=== PATIENT | female | born 1990 | race Caucasian/White ===

== ENCOUNTER 2022-01-29 09:07 | Outpatient (CLI) | payer BC, SELFPAY ==
--- NOTE | 2022-01-29 10:00 | CRLHL7_ITS ---
For Patients: As a result of the Century Cures Act, medical imaging exams and procedure reports are released immediately into your electronic medical record. You may view this report before your referring provider. If you have questions, please contact your health care provider. INDICATION: Evaluate anatomy. COMPARISON: 11.05.21 TECHNIQUE: Real time christopher scale imaging of the fetus was performed. FINDINGS: Sonographic imaging demonstrates a single living intrauterine gestation. Fetus demonstrates a regular cardiac rate of 148 beats per minute. Fetus has a variable position. The placenta lies anterior without evidence of placenta previa. Edge of the placenta is located 3.2 cm from the internal cervical os. Multiple incidental placental lakes are present. Amniotic fluid volume appears normal. Single deepest vertical pocket: 3.1 cm. The cervix is closed and measures 5.5 cm in length. The composite ultrasound gestational age is calculated at 20 weeks 3 days with an estimated sonographic due date of 06/15/2022. The estimated weight is 363 grams which lies at the 62nd %. The following biometric measurements were obtained: Biparietal diameter: 4.7 cm/20 weeks 1 day 42nd% Head circumference: 17.4 cm/19 weeks 6 days 26th% Abdominal circumference: 15.7 cm/20 weeks 6 days 63rd% Femur length: 3.4 cm/20 weeks 3 days 49th% The HC/AC ratio measures: 1.11 range (1.07-1.25) On anatomic survey, there is a normal appearance of the cerebral ventricles, cavum septi pellucidi, cisterna magna and cerebellum. The nose, lips, and facial profile appear normal. The cervical, thoracic and lumbar spine are well visualized and appear normal. There is a normal four-chamber heart view and the left and right ventricular outflow tracts appear normal. The diaphragm and stomach appear normal. The kidneys and bladder also appear normal. There is a normal three-vessel cord and cord insertion site. The four extremities appear normal. IMPRESSION: Normal OB ultrasound exam with concordance of clinical and sonographic dating. No intrinsic abnormalities noted on anatomic survey. Multiple incidental placental lakes are present. Dictated by Dejuan Jung MD @ 01/29/2022 11:40:39 AM (Electronically Signed)
== END 2022-01-29 09:08 | disposition home or self-care (01) ==
LOC: US 09:08
PROVIDERS: Visit Provider Obstetrics & Gynecology
DX: Z34.82 Encounter for supervision of other normal pregnancy, second trimester (principal); Z3A.20 20 weeks gestation of pregnancy
CPT/HCPCS: 76805

== ENCOUNTER 2022-03-24 10:21 | Outpatient (CLI) | payer BC, SELFPAY ==
--- OUTSIDE RECORDS SUMMARY | 2022-03-24 09:53 | XMS_ITS | Encounter Summary ---
:1990 Author Organization [facility] Address [address] [place] [address] Care Team Providers Name Role Phone Patricia Da Silva PA-C Primary Care Provider Reason for Visit Reason Comments Refill JMY-DU-YOPNIW 0.18/0.215/0.2 5 MG-25 MCG tablet [Pharmacy Med Name: Qrm-Re-Erdsug Oral Tablet 0. 18/0.215/0.25 MG-25 MCG] Encounter Details Date Type Department Care Team Description 03/02/2019 Refill [facility] Patricia Da Silva, Refill (BXE-EA-OPRNDC Medicine [facility] 0.18/0.215/0.25 MG-25 [address] MCG tablet [Pharmacy Med [place], [place] [address] Name: Rkd-Ww-Bccqzo Oral [id number] Tablet 0.18/0.215/0.25 [phone] MG-25 MCG ]) Social History Tobacco Use Types Packs/Day Years Used Date Smoking Tobacco: Former Cigarettes Quit : 07/09/2012 Smokeless Tobacco: Never Alcohol Use Standard Drinks/Week Comments Yes 2 (1 standard drink = 0.6 oz pure alcoho l) Sex Assigned at Date Recorded Not on file documented as of this encounter Nursing Notes Richa Enriquez 03/06/2019 11:53 AM CDT Appointment Letter PRINTED & Sent Kathya Montiel RN - 03/03/2019 8:46 AM CDT OFFICE APPOINTMENT NEEDED Please notify patient to schedule an appointment within 30 days. Requested Prescriptions Pending Prescriptions Disp Refills ??? QUT-NY-WBJRQU 0.18/0.215/0.25 MG-25 MCG tablet [Pharmacy Med Name: Cfj-Hu-Ipppku Oral Tablet 0.18/0.215/0.25 MG-25 MCG] 84 Tablet Sig: TAKE ONE TABLET BY MOUTH EVERY DAY Interface, Out Surescripts Prov Query - 03/02/2019 8:32 PM CDT CIU-PE-HTSCMC 0.18/0.215/0.25 MG-25 MCG tablet [Pharmacy Med Name: Pwe-Vc-Ikqvls Oral Tablet 0.18/0.215/0.25 MG-25 MCG] Medication started: 04/11/2016 Last ordered by PATRICIA DA SILVA R: 12/28/2017 (429 days ago) QTY: 84, Refills: 3, Sig: take 1 tab by mouth daily. (changed but equivalent) -> Refill x 3 months (courtesy refill. overdue for an office visit) -> Calculate quantity and refills manually. They could not be estimated due to missing or unreadable information. Last qualifying visit: 12/28/2017 (with PATRICIA DA SILVA) (A more recent visit (in Family Practice) was found) Next scheduled visit: None SBP: 160 mm Hg on 10/05/2018 DBP: 114 mm Hg on 10/05/2018 Powered by [employer], Reference: [id number], 03/02/2019 8:32:20 PM CDT, Pool: JUANA REFILL ([id number]) documented in this encounter Plan of Treatment Not on filedocumented as of this encounter Visit Diagnoses Diagnosis Encounter for surveillance of contracept hosea pills Surveillance of previously prescribed co ntraceptive pill documented in this encounter Care Teams Golf Course Architect Relationship Specialty Start Date End Date Patricia Da Silva PA-C PCP - General 10/13/15 [address] [place] [address] documented as of this encounter
--- OUTSIDE RECORDS SUMMARY | 2022-03-24 09:53 | XMS_ITS | Encounter Summary ---
:1990 Author Organization [facility] [employer] [facility] Address [address] [place] [address] Care Team Providers Name Role Phone Patricia Da Silva PA-C Primary Care Provider Reason for Visit Reason Comments Annual Exam Encounter Details Date Type Department Care Team Description 07/27/2019 Office Visit [facility] Patricia Da Silva, Annual physical exam (Primary Dx); Medicine PATSY FH: malignant neoplasm of thyroid; [address] [address]. [address] [facility] Encounter for surveillance of contracept hosea pills; [place], [place] Screening for diabetes mellitus; [id number] Encounter for screening for lipoid disor ders; [phone] History of alco hol abuse (Work) Social History Tobacco Use Types Packs/Day Years Used Date Smoking Tobacco: Former Cigarettes Quit : 07/09/2012 Smokeless Tobacco: Never Alcohol Use Standard Drinks/Week Comments Not Currently 2 (1 standard drink = 0.6 oz pure alcoho l) Sober since Apr 04, 2019 Alcohol Habits Answer Date Recorded How often do you have a drink containing Not asked alcohol? How many drinks containing alcohol do you Not asked have on a typical day when you are drinking? How often do you have six or more drinks on Not asked one occasion? Comment: Sober since Apr 04, 2019 07/27/2019 Sex Assigned at Date Recorded Not on file documented as of this encounter Last Filed Vital Signs Vital Sign Reading Time Taken Comments Blood Pressure 124/76 07/27/2019 11:44 AM LIGHTOUT EXAMINER Pulse 80 07/27/2019 11:44 AM LIGHTOUT EXAMINER Temperature - - Respiratory Rate - - Oxygen Saturation - - Inhaled Oxygen Concentration - - Weight 76.2 kg (168 lb 1.6 oz) 07/27/2019 11:44 AM LIGHTOUT EXAMINER Height - - Body Mass Index 29.78 10/05/2018 9:25 AM CDT documented in this encounter Patient Instructions Patient InstructionsPatricia Da Silva PA-C - 07/27/2019 11:40 AM CST Here is plan below: 1) We discussed that there are several lifestyle changes that can help improve overall mental and physical health including starting 2,000IU of Vitamin D3 daily and 2g fish oil daily. Also drinking 2-3liters of water per day and eating a healthy diet, focusing on higher proteins/healthy fats and lesscarbs, eat more lean meats, fruits, veggies, whole grains (over whites) and avoid fast foods and processed foods and artificial sweeteners. Eat more healthy fats also like avocado, eggs, nuts, olive/coconut oil, josias seeds. 2) Continue getting regular exercise, aiming for 30-60min of cardio/strength/yoga at least 4-6 timesper week. 3) Start the new control and let me know how it goes. I'll notify you of your labs, call with any questions or concerns. Thanks, Patricia Da Silva PAC. TOUT EXAMINER documented in this encounter Progress Notes Patricia Da Silva PA-C - 07/27/2019 11:40 AM CST Preventive Exam SUBJECTIVE: 29 y.o. y/o patient presents for a routine preventive physical exam. Additional Concerns: She is doing so much better this year, she quit drinking Apr 042018. Shewas drinking vodka all day at its worst. She is doing great now and went back to school on line for human resources and doing AA twice per week. Diet: Trying to eat cesspool cleaner and healthier now. Doing more whole 30 type stuff with her mom and she is living with her now. More chicken and proteins and veggies. Rare soda. Exercise: Just started at [employer] again, fast walk on the treadmill some weights and she is going to start some classes, is going 4-5x per week. Supplements: Multivitamin. Supervisor Wire Rope Fabrication History: : No obstetric history on file. LMP: Patient's last menstrual period was 07/14/2019. Pap hx: Does patient have history of abnormal pap smear? no. Mammogram: N/A. Prev Med: Colonoscopy: N/A. Dexa: N/A. Past Medical, Family, Surgical and Social History, Drug allergies and Medications have been reviewedand updated in [facility] today. Review of Systems: The remainder of complete ROS is negative except as noted above. OBJECTIVE: BP 124/76 (BP Location: Right Arm, BP Cuff Size: Regular) Pulse 80 Wt 168 lb 1.6 oz (76.2 kg) LMP 07/14/2019 BMI 29.78 kg/m?? General: Patient alert, in NAD. HEENT: PERRLA. EOMI. Bilateral TM's, external canals normal. Nose: normal mucosa, turbinates, without lesions. Oropharynx normal, normal teeth, gums, tongue, moist mucosa. Skin: Warm, dry, without lesions or rashes noted. Neck: Supple, without thyromegaly, masses or lymphadenopathy. CV: RRR without murmurs, rubs or gallops. Resp: Clear to auscultation b/l without rhonchi, wheezes or rales. Abdomen: Soft, non-tender, without hepatosplenomegaly, masses, or hernias, b/s x 4. Breasts: Non tender b/l, without masses, nipple discharge, erythema, or skin changes. B/L nipple piercings. Pelvic: N/E. Lymphatic: No neck, supraclavicular or axillary lymphadenopathy. Upper extremities: FROM without deformities. Lower extremities: FROM without edema, varicosities, or deformity. DP/PT pulses 2/4+ b/l. MS: Normal cervical, thoracic and lumbar spine without deformities, non-tender. Neuro: Normal gait, patellar reflexes 2/4+ b/l, biceps reflexes 2/4+ b/l. Psychiatric: Alert & oriented with normal affect and insight, does not appear depressed or anxious. ASSESSMENT: 1. Annual physical exam 2. FH: malignant neoplasm of thyroid 3. Encounter for surveillance of contraceptive pills 4. Screening for diabetes mellitus 5. Encounter for screening for lipoid disorders 6. History of alcohol abuse PLAN: Binta was seen today for annual exam. Diagnoses and all orders for this visit: Annual physical exam FH: malignant neoplasm of thyroid Encounter for surveillance of contraceptive pills - Norethin Randolph-Eth Estrad-FE () 1-20 MG-MCG tablet; Take 1 Tablet by mouth daily. Screening for diabetes mellitus - Glucose; Future Encounter for screening for lipoid disorders - Lipid Panel and Direct LDL(If Needed); Future History of alcohol abuse Here is plan below: 1) We discussed that there are several lifestyle changes that can help improve overall mental and physical health including starting 2,000IU of Vitamin D3 daily and 2g fish oil daily. Also drinking 2-3liters of water per day and eating a healthy diet, focusing on higher proteins/healthy fats and lesscarbs, eat more lean meats, fruits, veggies, whole grains (over whites) and avoid fast foods and processed foods and artificial sweeteners. Eat more healthy fats also like avocado, eggs, nuts, olive/coconut oil, josias seeds. 2) Continue getting regular exercise, aiming for 30-60min of cardio/strength/yoga at least 4-6 timesper week. 3) Start the new control and let me know how it goes. I'll notify you of your labs, call with any questions or concerns. Thanks, FERNANDO Villalta. TOUT EXAMINER documented in this encounter Plan of Treatment Not on filedocumented as of this encounter Results Glucose (07/27/2019 12:28 PM LIGHTOUT EXAMINER) P athologist Signature Glucose 98 70 - 100 07/27/2019 [place] mg/dL 4:00 PM LIGHTOUT EXAMINER [facility]ORY Comment: The given reference range is fo r the fasting state. Non-fasting reference range for glucose is 70 - 180 mg/dL. Hours Fasting 2 07/27/2019 4:00 PM LIGHTOUT EXAMINER [facility] Specimen Anatomical Collection Method / Collection Time Recei gretchen Time (Source) Location / Volume Laterality Blood Venipuncture / 07/27/2019 12:28 0 Unknown PM LIGHTOUT EXAMINER 12:28 PM LIGHTOUT EXAMINER Patricia Da Silva PA-C LAB_1 Performing Organization Address City/State/ZIP Code Phon e Number [facility] [address] [place] [address] [facility] [address] [place] [address], [place] (ABNORMAL) Lipid Panel and Direct LDL(If Needed) (07/27/2019 12:28 PM LIGHTOUT EXAMINER) [facility] Method Time Signature Cholesterol 149 0 - 199 07/27/2019 [place] mg/dL 4:00 PM LIGHTOUT EXAMINER [facility] Triglyceride 125 <=149 07/27/2019 [place] mg/dL 4:00 PM LIGHTOUT EXAMINER [facility] HDL Cholesterol 33 (L) >=40 mg/dL 07/27/2019 [place] 4:00 PM L[facility]OUT EXAMINER [facility] LDL, Calculated 91 <130 mg/dL 07/27/2019 [place] 4:00 PM LIGHTOUT EXAMINER [facility] Non HDL Chol, 116 mg/dL 07/27/2019 [place] Calculated 4:00 PM LIGHTOUT EXAMINER [facility] Cholesterol/HDL 4.5 07/27/2019 [place] Ratio 4:00 PM LIGHTOUT EXAMINER [facility] Hours Fasting 2 07/27/2019 [facility] 4:00 PM LIGHTOUT EXAMINER Specimen Anatomical Collection Method / Collection Time Recei gretchen Time (Source) Location / Volume Laterality Blood Venipuncture / 07/27/2019 12:28 0 Unknown PM LIGHTOUT EXAMINER 12:28 PM LIGHTOUT EXAMINER Patricia Da Silva PA-C LAB_1 Performing Organization Address [facility] Code Phon e Number [facility] [address] [place] [address] [facility] [address] [place] [address], [place] documented in this encounter Visit Diagnoses Diagnosis Annual physical exam - Primary Routine general medical examination at a health care facility FH: malignant neoplasm of thyroid Family history of other specified malign ant neoplasm Encounter for surveillance of contracept hosea pills Surveillance of previously prescribed co ntraceptive pill Screening for diabetes mellitus Encounter for screening for lipoid disor ders Screening for lipoid disorders History of alcohol abuse Nondependent alcohol abuse, in remission documented in this encounter Care Teams Disassembler Product Relationship Specialty Start Date End Date Patricia Da Silva PA-C PCP - General 10/13/15 [address] [place] [address] documented as of this encounter
--- OUTSIDE RECORDS SUMMARY | 2022-03-24 09:53 | XMS_ITS | Encounter Summary ---
:1990 Author Organization [facility] Address [address] [place] [address] Care Team Providers Name Role Phone Patricia Da Silva PA-C Primary Care Provider Reason for Visit Reason Comments Medication Change Encounter Details Date Type Department Care Team Description 01/05/2021 Nurse Triage [place] [address] Family Patricia Da Silva M edication Change Medicine [facility] [address] [facility] [address] [address] [place], [place] [address] [phone] Social History Tobacco Use Types Packs/Day Years [...] documented as of this encounter Nursing Notes Luz Maria Garcia RN - 01/05/2021 2:15 PM CDT Spoke with pt. States that she has not been getting her period on current control. Is dating again, and is wanting to know that she is getting a period each month. Has not had a period in about ayear. Has only had some spotting. Has been on this control for the last year and a half. Denies any abdominal pain or severe bleeding. Problem list reviewed as related to this call. Reason for Disposition ??? Menstrual period, missed or late Protocols used: CONTRACEPTION - CONTROL PILLS - [id number] Marco Rodgers - 01/05/2021 12:42 PM CDT Medications - Med Change / Question Is this a medication change or a general question? Med Change What is the name and dose of the current medication? BLISOVI FE 07/30 1-20 MG-MCG tablet Do you know what medication/dosage you would like to change to? (If yes, what is the medication name/dosage?) No Why do you need to change medication/dosage? Pt is not getting a period on this BC and pt would like to have a period How often do you take it? As directed Who prescribed it? Patricia Da Silva PA-C Additional comments (related to the above concern): For this medication, patient would like it filled at the pharmacy listed in Meds & Orders. (Verify the pharmacy patient would like to use for this request is highlighted in blue in Pharmacy Selection under Meds & Orders) Is it okay to leave a detailed message on your voicemail? Yes (Advise caller that the PN call back number will end with [phone] or unknown) Please route to: Triage Pool documented in this encounter Plan of Treatment Not on filedocumented as of this encounter Visit Diagnoses Not on filedocumented in this encounter Care Teams Engineering Supervisor Relationship Specialty Start Date End Date Patricia Da Silva PA-C PCP - General 10/13/15 [address] [place] [address] documented as of this encounter
--- OUTSIDE RECORDS SUMMARY | 2022-03-24 09:53 | XMS_ITS | Encounter Summary ---
:1990 Author Organization [facility] Address [address] [place] [address] Care Team Providers Name Role Phone Patricia Da Silva PA-C Primary Care Provider Encounter Details Date Type Department Care Team Description 07/27/2019 Lab Visit [facility] Encounter for screening for lipoid disorders; [id number] [address] [place] [address] Social History Tobacco Use Types Packs/Day Years [...] on file documented as of this encounter Plan of Treatment Not on filedocumented as of this encounter Procedures Procedure Name Priority Date/Time Associated Diagnosis Comme nts LIPID PANEL AND Routine 07/27/2019 12:28 PM Encounter for Resu lts for this DIRECT LDL(IF SMASHER screening for lipoid proced ure are in NEEDED) disorders the results section. GLUCOSE Routine 07/27/2019 12:28 PM Screening for Results for this SMASHER diabetes mellitus procedure are in the results section. documented in this encounter Results Glucose (07/27/2019 12:28 PM SMASHER) P athologist Signature Glucose 98 70 - 100 07/27/2019 [place] mg/dL 4:00 PM [facility] Comment: The given reference range is fo r the fasting state. Non-fasting reference range for glucose is 70 - 180 mg/dL. Hours Fasting 2 07/27/2019 4:00 PM SMASHER [facility] Specimen Anatomical Collection Method / Collection Time Recei gretchen Time (Source) Location / Volume Laterality Blood Venipuncture / 07/27/2019 12:28 0 Unknown PM SMASHER 12:28 PM SMASHER Patricia Da Silva PA-C LAB_1 Performing Organization Address City/[facility] Phon e Number [facility] [address] [place] [address] [place] [facility] [facility] [address] [place] [address], [phone] [facility] (ABNORMAL) Lipid Panel and Direct LDL(If Needed) (07/27/2019 12:28 PM SMASHER) Patholo gist Method Time Signature Cholesterol 149 0 - 199 07/27/2019 [place] mg/dL 4:00 PM [facility] Triglyceride 125 <=149 07/27/2019 [place] mg/dL 4:00 PM [facility] HDL Cholesterol 33 (L) >=40 mg/dL 07/27/2019 [place] 4:00 PM [facility] LDL, Calculated 91 <130 mg/dL 07/27/2019 [place] 4:00 PM [facility] Non HDL Chol, 116 mg/dL 07/27/2019 [place] Calculated 4:00 PM [facility] Cholesterol/HDL 4.5 07/27/2019 [place] Ratio 4:00 PM [facility] Hours Fasting 2 07/27/2019 [facility] 4:00 PM SMASHER Specimen Anatomical Collection Method / Collection Time Recei gretchen Time (Source) Location / Volume Laterality Blood Venipuncture / 07/27/2019 12:28 0 Unknown PM SMASHER 12:28 PM SMASHER Patricia Da Silva PA-C LAB_1 Performing Organization Address City/[facility]/ZIP [facility] Phon e Number [facility] [address] [place] [address] [facility] [address] [place] [address], [phone] [facility] documented in this encounter Visit Diagnoses Diagnosis Encounter for screening for lipoid disor ders Screening for lipoid disorders Screening for diabetes mellitus documented in this encounter Care Teams Plant Guide Relationship Specialty Start Date End Date Patricia Da Silva PA-C PCP - General 10/13/15 [address] [place] [address] documented as of this encounter
--- OUTSIDE RECORDS SUMMARY | 2022-03-24 09:53 | XMS_ITS | Encounter Summary ---
:1990 Author Organization [facility] Address [address] [place] [address] Care Team Providers Name Role Phone Patricia Da Silva PA-C Primary Care Provider Reason for Visit Reason Comments DIZZINESS Encounter Details Date Type Department Care Team Description 06/10/2021 Telephone [place] [address] Family Tyra Da Silva PA-C DIZZINESS Medicine [address] [facility] [address] [place] [address] [place] [address] [phone] Social History Tobacco Use Types Packs/Day Years [...] documented as of this encounter Nursing Notes Risa Montiel - 06/10/2021 2:52 PM CST Red Flag Symptoms Describe your symptoms (if pain, include location): dizziness Caller declined to follow Red Flag Guidelines. Additional comments (related to the above concern): For emergent symptoms: Please route and transfer to: Triage Pool (high priority) For urgent and routine symptoms: DO NOT enter a pool number. Please sign/close phone encounter KALEIDOSCOPE ANALYST documented in this encounter Plan of Treatment Not on filedocumented as of this encounter Visit Diagnoses Not on filedocumented in this encounter Care Teams Covered Buckle Assembler Relationship Specialty Start Date End Date Patricia Da Silva PA-C PCP - General 10/13/15 [address] [place] [address] documented as of this encounter
--- OUTSIDE RECORDS SUMMARY | 2022-03-24 09:53 | XMS_ITS | Encounter Summary ---
:1990 Author Organization [employer] Address [address] [place] [address] Care Team Providers Name Role Phone Patricia Da Silva PA-C Primary Care Provider Reason for Visit Reason Onset Date Comments FOLLOW-UP, CONTROL, NOS Video Visit 01/13/2021 Encounter Details Date Type Department Care Team Description 01/13/2021 Telemedicine [place] [address] Patricia Da Silva Encounte r for surveillance of contraceptive pills (Primary Dx); Family Medicine PATSY History of alcohol abuse [address] [place] [address] [phone] Social History Tobacco Use Types Packs/Day Years [...] Sign Reading Time Taken Comments Blood Pressure - - Pulse - - Temperature 37 ??C (98.6 ??F) 01/13/2021 8:02 AM CDT Respiratory Rate - - Oxygen Saturation - - Inhaled Oxygen Concentration - - Weight 77.1 kg (170 lb) 01/13/2021 8:02 AM CDT Height 157.5 cm (5' 2) 01/13/2021 8:02 AM CDT Body Mass Index 31.09 01/13/2021 8:02 AM CDT documented in this encounter Progress Notes Patricia Da Silva PA-C - 01/13/2021 8:20 AM CDT Subjective: Today's visit with Binta was conducted as a scheduled video visit. Pt scheduled a video visit to discuss her OCP. She still doesn't get a period on period week and/or just a little spotting and it makes her nervous now because she is sexually active again. Wondering if there is a pill where she will get her period. Discussed as long as she is taking the pill daily itis really fine and she does like that she doesn't have to pay for Tampons so she will just continue this pill for now. I did discuss Nexplanon and IUD also so she doesn't have to remember a pill but she has been fine with this pill and doesn't forget at all so will stick with it. She is still sober and doing well. 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 She may continue on with more schooling. 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 She is overdue for annual exam/pap so I got her scheduled for that also. Objective: Temp 98.6 ??F (37 ??C) Ht 5' 2 (1.575 m) Wt 170 lb (77.1 kg) BMI 31.09 kg/m?? Pleasant, NAD, barbara affect. Assessment/Plan: Encounter for surveillance of contraceptive pills - Norethin Randolph-Eth Estrad-FE (BLISOVI FE 07/30) 1-20 MG-MCG tablet; Take 1 Tablet by mouth daily. History of alcohol abuse Pt will stick with this OCP and we'll see her for annual exam and pap in a couple weeks. She will call with any questions or concerns in the meantime. [facility]K Clinician located at home. Patient located at home Billing based on: Complexity Patricia Da Silva PA-C documented in this encounter Plan of Treatment Not on filedocumented as of this encounter Visit Diagnoses Diagnosis Encounter for surveillance of contracept hosea pills - Primary Surveillance of previously prescribed co ntraceptive pill History of alcohol abuse Nondependent alcohol abuse, in remission documented in this encounter Care Teams Ambulance Dispatcher Relationship Specialty Start Date End Date Patricia Da Silva PA-C PCP - General 10/13/15 [address] [place] [address] documented as of this encounter
--- OUTSIDE RECORDS SUMMARY | 2022-03-24 09:53 | XMS_ITS | Encounter Summary ---
:1990 [facility] Address [address], [place] [address] Care Team Providers Name Role Phone Patricia Da Silva PA-C Primary Care Provider Reason for Visit Reason Comments ANIMAL BITE--CAT--ED Encounter Details Date Type Department Care Team Description 11/07/2018 Nurse Triage [facility] Patricia Da Silva, ANIMAL BITE--CAT--ED Medicine [place] [address] [address] [place] [address] [phone] Social History Tobacco Use Types Packs/Day Years Used Date Smoking Tobacco: Former Cigarettes Quit : 07/09/2012 Smokeless Tobacco: Never Alcohol Use Standard Drinks/Week Comments Yes 2 (1 standard drink = 0.6 oz pure alcoho l) Sex Assigned at Date Recorded Not on file documented as of this encounter Nursing Notes Vilma Marshall RN - 11/07/2018 11:43 AM CDT Reason for Disposition ??? Any break in skin (e.g., cut, puncture, or scratch) and dog, cat, or ferret at risk for RABIES (e.g., sick, stray, unprovoked bite, developing country) Protocols used: ANIMAL AWTN-ALDIK-CH Patient notes a stray cat scratched her right palm on 11/04. States the scratch was deep- not superficial. Healing well now, no signs of infection. No fever, pus, red streaks. Cat was a stray - [place] with exposure to other wild animals such as raccoons.Home care and problem list reviewed as pertaining to the call. Recommended UC for evaluation of injury. Agrees with plan. documented in this encounter Plan of Treatment Not on filedocumented as of this encounter Visit Diagnoses Not on filedocumented in this encounter Care Teams Survey Crew Chief Relationship Specialty Start Date End Date Patricia Da Silva PA-C PCP - General 10/13/15 [address] [place] [address] documented as of this encounter
--- OUTSIDE RECORDS SUMMARY | 2022-03-24 09:53 | XMS_ITS | Encounter Summary ---
:1990 Author Organization [facility] Address [address] [place] [address] Care Team Providers Name Role Phone Patricia Da Silva PA-C Primary Care Provider Reason for Visit Reason Comments Refill BLISOVI FE 1/20 1-20 MG-MCG tablet [Pharmacy Med Name: Blisovi FE 1/20 Oral Tablet 1-20 MG-MCG] Encounter Details Date Type Department Care Team Description 10/09/2020 Refill [place] [address] Family Patricia Da Silva R efill (BLISOVI FE 1/20 Medicine PA-C 1-20 MG-MCG tablet [address] [facility] [address] [facility] [Pharmacy Med Name: [place], [place] [address] Blisovi FE 1/20 Oral [address] Tablet 1-20 MG-MCG]) [phone] Social History Tobacco Use Types Packs/Day Years [...] documented as of this encounter Nursing Notes Neftaly Chan, RN - 10/09/2020 11:33 AM CDT Renewed medication per medication refill protocol. Requested Prescriptions Pending Prescriptions Disp Refills BLISOVI FE 1/20 1-20 MG-MCG tablet [Pharmacy Med Name: Blisovi FE 1/20 Oral Tablet 1-20 MG-MCG] 90 Tablet 0 Sig: TAKE ONE TABLET BY MOUTH DAILY Neftaly Chan RN - 10/09/2020 11:33 AM CDT 90 day supply given per Emergency Refill Standing Order. Neftaly Chan RN 10/09/2020, 11:33 AM Interface, Out Surescripts Prov Query - 10/09/2020 11:12 AM CDT BLISOVI FE 1/20 1-20 MG-MCG tablet [Pharmacy Med Name: Blisovi FE 1/20 Oral Tablet 1-20 MG-MCG] Medication started: 07/27/2019 Last ordered by PATRICIA DA SILVA R: 07/19/2020 (82 days ago) QTY: 90, Refills: 0, Sig: take 1 tablet bymouth daily. (changed but equivalent) -> An office visit is overdue (performed 15 months ago, required every 12 months). Last qualifying visit: 07/27/2019 (with PATRICIA DA SILVA) Next scheduled visit: None Powered by [facility], Reference: [id number], 10/09/2020 11:12:16 AM CDT, Pool: JUANA REFILL ([id number]) documented in this encounter Plan of Treatment Not on filedocumented as of this encounter Visit Diagnoses Diagnosis Encounter for surveillance of contracept hosea pills Surveillance of previously prescribed co ntraceptive pill documented in this encounter Care Teams Phlebotomy Manager Relationship Specialty Start Date End Date Patricia Da Silva PA-C PCP - General 10/13/15 [address] [place] [address] documented as of this encounter
--- OUTSIDE RECORDS SUMMARY | 2022-03-24 09:53 | XMS_ITS | Encounter Summary ---
:1990 Author Organization [facility] Address [address] [place] [address] Care Team Providers Name Role Phone Patricia Da Silva PA-C Primary Care Provider Encounter Details Date Type Department Care Team Description 06/02/2020 Immunization [place] [address] Flu Need for prophylactic Clinic vaccination and [address] [place] [address] influenza [phone] Social History Tobacco Use Types Packs/Day Years [...] as of this encounter Visit Diagnoses Diagnosis Need for prophylactic vaccination and in oculation against influenza documented in this encounter Care Teams Monotype Machinist Relationship Specialty Start Date End Date Patricia Da Silva PA-C PCP - General 10/13/[address] [place] [address] documented as of this encounter
--- OUTSIDE RECORDS SUMMARY | 2022-03-24 09:53 | XMS_ITS | Encounter Summary ---
:1990 Author [facility] Address [address] [place] [address] Care Team Providers Name Role Phone Patricia Da Silva PA-C Primary Care Provider Reason for Visit Reason Comments Refill Norethin Randolph-Eth Estrad-FE ( BLISOVI FE 07/30) 1-20 MG-MCG tablet Encounter Details Date Type Department Care Team Description 01/05/2021 Refill [place] [address] Family Patricia Da Silva R efill (Norethin Randolph-Eth Medicine PAT[place] Estrad-FE ([place] FE [address] 07/30) 1-20 MG-MCG [place], [place] [address] tablet) [id number] [phone] Social History Tobacco Use Types Packs/Day Years [...] documented as of this encounter Nursing Notes Breanna Winchester LPN - 01/06/2021 12:04 PM CDT Called and left a message that one month was given but appt needs to be kept for future refills. Lennox Mobley MD - 01/06/2021 10:20 AM CDT One month refill given to last until upcoming appt. Mita Dickerson, RN - 01/05/2021 4:51 PM CDT Further Assistance Needed on Refill from Clinician RN reviewed. Patient overdue for Qualifying visit. -> An office visit is overdue (performed 18 months ago, required every 12 months). Last qualifying visit: 07/27/2019 Next scheduled visit: 01/13/2021 Review pended order for accuracy. Sign if appropriate. Document if visit is needed for further refills. Route to care team to notify patient if needed. Requested Prescriptions Pending Prescriptions Disp Refills Norethin Randolph-Eth Estrad-FE (BLISOVI FE 07/30) 1-20 MG-MCG tablet 28 Tablet 0 Sig: Take 1 Tablet by mouth daily. Alexandria Cazares - 01/05/2021 4:40 PM CDT Medications - Refill Request (able to re-order) Name of prescribing clinician: Patricia Da Silva PA-C Additional comments (related to the above concern): Pt is out of medication and needs enough until appt on 01/13/21 For this refill, patient would like it filled at the pharmacy listed in Meds & Orders. (Verify the pharmacy patient would like to use for this request is highlighted in blue in Pharmacy Selection under Meds & Orders) If there are questions regarding your request, is it okay to leave a detailed message on your voicemail? Yes (Advise caller that the PN call back number will end with [phone] or unknown) (Advise caller of turn around time is 2 business days for standard refills and 2 to 5 business days for controlled refills) Please route to: Refill Pool (P [id number]) [facility] [place] Patients ONLY (P [id number]) [facility] Refill Pool (P [id number]) Interface, Out Surescripts Prov Query - 01/05/2021 12:44 PM CDT Norethin Randolph-Eth Estrad-FE (BLISOVI FE 07/30) 1-20 MG-MCG tablet Medication started: 07/27/2019 Last ordered by PATRICIA DA SILVA R: 10/09/2020 (88 days ago) QTY: 90, Refills: 0, Sig: take one tablet by mouth daily (changed but equivalent) -> An office visit is overdue (performed 18 months ago, required every 12 months). Last qualifying visit: 07/27/2019 (with PATRICIA DA SILVA) Next scheduled visit: None Powered by [employer], Reference: [id number], 01/05/2021 12:44:41 PM CDT, Pool: PN REFILL WIZARD ADMIN ([id number]) Marco Rodgers - 01/05/2021 12:43 PM CDT Medications - Refill Request (able to re-order) Name of prescribing clinician: Patricia Da Silva PA-C Additional comments (related to the above concern): For this refill, patient would like it filled at the pharmacy listed in Meds & Orders. (Verify the pharmacy patient would like to use for this request is highlighted in blue in Pharmacy Selection under Meds & Orders) If there are questions regarding your request, is it okay to leave a detailed message on your voicemail? Yes (Advise caller that the PN call back number will end with [phone] or unknown) (Advise caller of turn around time is 2 business days for standard refills and 2 to 5 business days for controlled refills) Please route to: Refill Pool (P [id number]) [facility] [place] Patients ONLY (P [id number]) [facility] Refill Pool (P [id number]) documented in this encounter Plan of Treatment Not on filedocumented as of this encounter Visit Diagnoses Diagnosis Encounter for surveillance of contracept hosea pills Surveillance of previously prescribed co ntraceptive pill documented in this encounter Care Teams Rn Icu Relationship Specialty Start Date End Date Patricia Da Silva PA-C PCP - General 10/13/15 [address] [place] [address] documented as of this encounter
--- OUTSIDE RECORDS SUMMARY | 2022-03-24 09:53 | XMS_ITS | Encounter Summary ---
:1990 Author Organization [employer] Address [address] [place] [address] Care Team Providers Name Role Phone Patricia Da Silva PA-C Primary Care Provider Reason for Referral Therapies (Routine) - New Request Specialty Diagnoses / Procedures Referred By Contact Refer red To Contact Diagnoses Vertigo Ministerio Hughes PA-C [address] [place] [address] Referral ID Status Reason Start Date Expiration Date Visits V isits Requested Authorized [id number] New Request 06/17/2021 06/17/2022 1 1 Scheduling Instructions Your provider has recommended an appoint ment with [facility]. You may call [phone] to schedule your a ppointment. We suggest you call your health insurance company about your coverage an d benefits for this appointment. OROLOGIST LIAISON Reason for Visit Reason Comments DIZZINESS started last tuesday worse for the week better the last 2 days mostly when bends over and stands up or getting up in am Encounter Details Date Type Department Care Team Description 06/17/2021 Office Visit [place] [address] Family Ministerio Hughes V ertigo (Primary Dx) Medicine PAT[place] [address] [facility] [address] [place] [address] [phone] Social History Tobacco Use Types Packs/Day Years [...] Sign Reading Time Taken Comments Blood Pressure 132/87 06/17/2021 1:50 PM METEOROLOGIST LIAISON Pulse 102 06/17/2021 1:50 PM METEOROLOGIST LIAISON Temperature - - Respiratory Rate 16 06/17/2021 1:44 PM METEOROLOGIST LIAISON Oxygen Saturation - - Inhaled Oxygen Concentration - - Weight 63 kg (139 lb) 06/17/2021 1:44 PM METEOROLOGIST LIAISON Height 157.5 cm (5' 2) 06/17/2021 1:44 PM METEOROLOGIST LIAISON Body Mass Index 25.42 06/17/2021 1:44 PM METEOROLOGIST LIAISON documented in this encounter Patient Instructions Patient InstructionsMinisterio Hughes PA-C - 06/17/2021 1:40 PM CST Plan: 1). Meclizine 25mg 3x daily as needed for ongoing dizziness. 2). Avoid sudden movements or positional changes. 3). Referral to physical therapy for vestibular evaluation/rehab. 4). Close follow up with acute worsening of symptoms, weakness, severe headaches, or any other neurological symptoms. 5). May consider other work-up/imaging (ie: MRI) if not improving or getting worse. OROLOGIST LIAISON documented in this encounter Progress Notes Ministerio Hughes PA-C - 06/17/2021 1:40 PM CST Chief Complaint Patient presents with ??? DIZZINESS started last tuesday worse for the week better the last 2 days mostly when bends over and stands up or getting up in am History of present illness: Binta Mckeon is a 31 y.o. female who presents with acute onset of dizziness over past 1.5 weeks. Was fairly bad for about a week or so and a little better over past 2 days. Usually worse when bending over and then getting up too fast, or with certain rapid positional changes. Will usually improveif she sits still. Feels like room spinning when it happens. No significant nausea/vomiting. No other neurologic symptoms. Has had some mild headaches off and on over past month or so but states she stopped OCP and decreased caffeine as they are trying to get . No congestion, ear pain, hearingissues or URI/illness type symptoms. Has not had a history of vertigo in the past. No other acute issues or concerns. Has not taken anything for symptoms. Review of Systems: As stated in HPI otherwise negative. Past Medical History: Reviewed and updated in medical record at visit Past Surgical History: Reviewed and updated in medical record at visit Family History: Reviewed and updated in medical record at visit Medications: Reviewed and reconciled in medical record at visit. Allergies: Reviewed and updated in medical record at visit. Physical Exam: Vitals: 06/17/21 1350 BP: 132/87 Pulse: (!) 102 Resp: GEN: Alert, oriented, well nourished/hydrated in NAD EYES: PEERL, EOMI. Has a couple beats of horizontal nystagmus bilaterally ENT: Ears with clear canals, TMs normal. Nose without congestion or sinus tenderness. Throat with moist mucus membranes, no erythema or exudates. NECK: Supple, trachea midline, no LAD CHEST: Normal effort, CTA. HEART: RRR, No audible murmur, rub or gallop. ABD: Soft, non-tender. No rebound or guarding. SKIN: Warm and dry without rash M/S: No joint swelling or redness. NEURO: CN 2-12 intact, Normal strength and sensation throughout. Normal finger/nose touching. (-) Romberg. No pronator drift. Otherwise non-focal exam PSYCH: Alert and oriented. Normal affect. Orthostatic Vitals: Lying BP: 135/71, Pulse: 88 Standing BP: 132/87, Pulse: 102 Diagnosis: Encounter Diagnosis Name Primary? Vertigo Yes Plan: 1). Meclizine 25mg 3x daily as needed for ongoing dizziness. 2). Avoid sudden movements or positional changes. 3). Referral to physical therapy for vestibular evaluation/rehab. 4). Close follow up with acute worsening of symptoms, weakness, severe headaches, or any other neurological symptoms. 5). May consider other work-up/imaging (ie: MRI) if not improving or getting worse. OROLOGIST LIAISON documented in this encounter Plan of Treatment Scheduled Referrals Name Type Priority Associated Diagnoses Order S [facility] Physical Therapy Referral Routine Vertigo Ordered: documented as of this encounter Visit Diagnoses Diagnosis Vertigo - Primary Dizziness and giddiness documented in this encounter Care Teams Director Of Pediatric Rehabilitation Relationship Specialty Start Date End Date Patricia Da Silva PA-C PCP - General 10/13/15 [address] [place] [address] documented as of this encounter
--- OUTSIDE RECORDS SUMMARY | 2022-03-24 09:53 | XMS_ITS | Encounter Summary ---
:1990 Author Organization [facility] Address [address] [place] [address] Care Team Providers Name Role Phone Patricia Da Silva PA-C Primary Care Provider Reason for Visit Reason Onset Date Comments Refill 07/19/2020 Norethin Randolph-Eth Est rad-FE () 1-20 MG-MCG tablet Encounter Details Date Type Department Care Team Description 07/19/2020 Refill [place] [address] Family Patricia Da Silva R efill (Norethin Randolph-Eth Medicine PATSY Estrad-FE () [address] 1-20 MG-MCG tablet) [place], [place] [address] [phone] Social History Tobacco Use Types Packs/Day Years [...] as of this encounter Nursing Notes Neftaly Chan RN - 07/19/2020 11:46 AM CST Renewed medication per medication refill protocol. Requested Prescriptions Pending Prescriptions Disp Refills Norethin Randolph-Eth Estrad-FE () 1-20 MG-MCG tablet 90 Tablet 0 Sig: Take 1 Tablet by mouth daily. ING INSTRUCTOR Neftaly Chan RN - 07/19/2020 11:46 AM CST 90 day supply given per Emergency Refill Standing Order. Neftaly Chan RN 07/19/2020, 11:46 AM ING INSTRUCTOR Interface, Out Surescripts Prov Query - 07/19/2020 11:46 AM CST Norethin Randolph-Eth Estrad-FE () 1-20 MG-MCG tablet Medication started: 07/27/2019 Last ordered by PATRICIA DA SILVA R: 07/27/2019 (358 days ago) QTY: 84, Refills: 3, Sig: take 1 tablet by mouth daily. (unchanged) -> Refill x 3 months (until due for an office visit) Last qualifying visit: 07/27/2019 (with PATRICIA DA SILVA) Next scheduled visit: None Powered by [facility], Reference: [id number], 07/19/2020 11:46:10 AM Yan [place]: JUANA REFILL ([id number]) ING INSTRUCTOR Isidra Avendaño MA - 07/19/2020 11:45 AM CST [place] requested for pending Rx(s). Patient is out of medication. Please send new Rx(s) if appropriate, thank you. ING INSTRUCTOR documented in this encounter Plan of Treatment Not on filedocumented as of this encounter Visit Diagnoses Diagnosis Encounter for surveillance of contracept hosea pills Surveillance of previously prescribed co ntraceptive pill documented in this encounter Care Teams Industrial Hygiene Engineer Relationship Specialty Start Date End Date Patricia Da Silva PA-C PCP - General 10/13/15 [address] [place] [address] documented as of this encounter
--- OUTSIDE RECORDS SUMMARY | 2022-03-24 09:53 | XMS_ITS | Encounter Summary ---
:1990 Author Organization [facility] Address [address] [place] [address] Care Team Providers Name Role Phone Patricia Da Silva PA-C Primary Care Provider Reason for Visit Reason Comments Refill BLISOVI FE 1/20 1-20 MG-MCG tablet [Pharmacy Med Name: Blisovi FE 1/20 Oral Tablet 1-20 MG-MCG] Encounter Details Date Type Department Care Team Description 01/05/2021 Refill [place] [address] Family Patricia Da Silva R efill (BLISOVI FE 1/20 Medicine PA-C 1-20 MG-MCG tablet [address] [facility] [address] [facility] [Pharmacy Med Name: [place], [place] [address] Blisovi FE 1/20 [place] [address] Tablet 1-20 MG-MCG]) [phone] Social History Tobacco Use Types Packs/Day Years [...] documented as of this encounter Nursing Notes Interface, Out Surescripts Prov Query - 01/05/2021 4:23 PM CDT MATILDEISOOCHOA FE 07/30 1-20 MG-MCG tablet [Pharmacy Med Name: Blisovi FE 1/20 Oral Tablet 1-20 MG-MCG] Medication started: 07/27/2019 Last ordered by PATRICIA DA SILVA R: 10/09/2020 (88 days ago) QTY: 90, Refills: 0, Sig: take one tablet by mouth daily (unchanged) -> A duplicate request was processed on 01/05/2021. -> An office visit is overdue (performed 18 months ago, required every 12 months). Last qualifying visit: 07/27/2019 (with PATRICIA DA SILVA) Next scheduled visit: 01/13/2021 (with PATRICIA DA SILVA) Powered by [employer], Reference: [id number], 01/05/2021 4:23:07 PM CDT, Pool:JUANA REFILL ([id number]) documented in this encounter Plan of Treatment Not on filedocumented as of this encounter Visit Diagnoses Diagnosis Encounter for surveillance of contracept hosea pills Surveillance of previously prescribed co ntraceptive pill documented in this encounter Care Teams Educational Programming Director Relationship Specialty Start Date End Date Patricia Da Silva PA-C PCP - General 10/13/15 [address] [place] [address] documented as of this encounter
--- OUTSIDE RECORDS SUMMARY | 2022-03-24 09:53 | XMS_ITS | Encounter Summary ---
:1990 Author Organization [facility] Address [address] [place] [address] Care Team Providers Name Role Phone Patricia Da Silva PA-C Primary Care Provider Reason for Visit Reason Comments Concerns Encounter Details Date Type Department Care Team Description 09/01/2021 Nurse Triage Christine Nurse Line Patricia Da Silva, Concerns [address] [facility] [address] [address] [place], [place] [id number] [place] [id number] (Wo rk) Social History Tobacco Use Types Packs/Day Years [...] documented as of this encounter Nursing Notes Nadya Pike - 09/01/2021 8:06 AM CST Reason for Disposition ??? MODERATE-SEVERE abdominal pain Protocols used: - ABDOMINAL PAIN LESS THAN 20 WEEKS PCT-[id number] Patient calling 4.5 weeks with concerns about constant lower right sided abdominal pain andvaginal spotting. Only notes bleeding with wiping with toilet paper. One time it will be entire piece of TP covered in blood, the other time will only be a drop. Reviewed protocol recommendations and care advice. Patient agrees with plan, and will go to ED for further evaluation. Problem list reviewed as related to this call. STER RECOVERY CONSULTANT Vikki Orozco RN - 09/01/2021 7:08 AM CST Reason for Disposition ? ? [1] Constant abdominal pain AND [2] present > 2 hours Protocols used: - ABDOMINAL PAIN LESS THAN 20 WEEKS [id number] Patient calling. States she found out she was 08/24. Noticed yesterday she started to have some abdominal pain and cramping. States the pain became more constant at 3am this morning and sometimes sharp. Reports the pain is on her lower right side. Rates the pain 6/10. States she is passing some blood when she goes to the bathroom. Has not taken any Tylenol. PNNL advised to be seen within the next 4 hours. Urgently sooner in the ER if pain becomes severe. Agrees with plan. Will call OBGYN forpossible appointment this morning, otherwise will go to the ER. Problem list reviewed as related to this call. STER RECOVERY CONSULTANT documented in this encounter Plan of Treatment Not on filedocumented as of this encounter Visit Diagnoses Not on filedocumented in this encounter Care Teams Film Inspector Relationship Specialty Start Date End Date Patricia Da Silva PA-C PCP - General 10/13/15 [address] [place] [address] documented as of this encounter
--- OUTSIDE RECORDS SUMMARY | 2022-03-24 09:53 | XMS_ITS | Encounter Summary ---
:1990 Author Organization [facility] Address [address] [place] [address] Care Team Providers Name Role Phone Patricia Da Silva PA-C Primary Care Provider Reason for Visit Reason Comments Refill GZC-EU-UBUZMM 0.18/0.215/0.2 5 MG-25 MCG tablet [Pharmacy Med Name: Bpg-Cg-Wrecvl Oral Tablet 0. 18/0.215/0.25 MG-25 MCG] Encounter Details Date Type Department Care Team Description 07/20/2019 Refill [facility] Patricia Da Silva, Refill (UAT-FV-GJVJVT Medicine PATSY 0.18/0.215/0.25 MG-25 [address] [place] MCG tablet [Pharmacy [facility] [place], [place] [address] Name: Kbz-Tk-Cnnzej Oral [id number] Tablet 0.18/0.215/0.25 [phone] MG-25 MCG ]) Social History Tobacco Use Types Packs/Day Years Used Date Smoking Tobacco: Former Cigarettes Quit : 07/09/2012 Smokeless Tobacco: Never Alcohol Use Standard Drinks/Week Comments Yes 2 (1 standard drink = 0.6 oz pure alcoho l) Sex Assigned at Date Recorded Not on file documented as of this encounter Nursing Notes Roxana Black - 07/25/2019 2:24 PM CST Pt is calling to say she will be needing this medication on Tuesday as she will be needing to start her new pack that day, 07/29/19. Pt did schedule an appointment for 07/27/19 with Patricia Da Silva. RANGE FEEDER Mita Dickerson, RN - 07/23/2019 12:36 PM CST Further Assistance Needed on Refill from Mobile Unit Assistant Patient is overdue for Office visit. -> An office visit is overdue (performed 19 months ago, required every 12 months). ? Last qualifying visit: 12/28/2017 (with PATRICIA DA SILVA) ? Next scheduled visit: None ?? Please call patient to schedule a Office Visit and document using .YULIANA. After attempting to schedule patient: Please route to: Patricia Da Silva PA-C Requested Prescriptions Pending Prescriptions Disp Refills ??? AMJ-OF-HSOGEX 0.18/0.215/0.25 MG-25 MCG tablet [Pharmacy Med Name: Kia-Yi-Rptsck Oral Tablet 0.18/0.215/0.25 MG-25 MCG] 28 Tablet 0 Sig: TAKE ONE TABLET BY MOUTH EVERY DAY RANGE FEEDER [place], Randi Surescripts Prov Query - 07/20/2019 2:28 PM CST XGO-TY-LMANJX 0.18/0.215/0.25 MG-25 MCG tablet [Pharmacy Med Name: Muo-Fw-Izcymm Oral Tablet 0.18/0.215/0.25 MG-25 MCG] Medication started: 04/11/2016 Last ordered by PATRICIA DA SILVA: 03/03/2019 (139 days ago) QTY: 84, Refills: 0, Sig: take one tabletby mouth every day (unchanged) -> An office visit is overdue (performed 19 months ago, required every 12 months). Last qualifying visit: 12/28/2017 (with PATRICIA DA SILVA) (A more recent visit (in Family Practice) was found) Next scheduled visit: None SBP: 160 mm Hg on 10/05/2018 DBP: 114 mm Hg on 10/05/2018 Powered by [employer], Reference: [id number], 07/20/2019 2:28:27 PM DYE RANGE FEEDER, Pool: JUANA REFILL ([id number]) RANGE FEEDER documented in this encounter Plan of Treatment Not on filedocumented as of this encounter Visit Diagnoses Diagnosis Encounter for surveillance of contracept hosea pills Surveillance of previously prescribed co ntraceptive pill documented in this encounter Care Teams Public Interviewer Relationship Specialty Start Date End Date Patricia Da Silva, RADHAC PCP - General 10/13/15 [address] [place] [address] documented as of this encounter
--- OUTSIDE RECORDS SUMMARY | 2022-03-24 09:53 | XMS_ITS | Clinical Summary ---
:1990 Author Organization [facility] Address [address] [place] [address] Care Team Providers Name Role Phone Patricia Da Silva PA-C Primary Care Provider Source Comments You are receiving this document as you are listed as the primary care provider,follow-up provider, or the patient has been referred to you for consultation.This is in compliance with the Medicare and Medicaid EHR Incentive Program,which states Providers who transition their patient to another setting of careor provider of care or refers their patient to another provider of care shouldprovide summarycare record for each transition of care or referral. [facility] Allergies No known active allergies Medications Medication Sig Dispensed Refills Start Date End Date Status meclizine (ANTIVERT) Take 1 Tablet by 30 Tablet 0 06/17/2021 Active 25 MG mouth three times tabletIndications: a day as needed. Vertigo Active Problems Problem Noted Date History of alcohol abuse 07/27/2019 FH: malignant neoplasm of thyroid 12/28/2017 Contraceptive use 06/14/2017 Resolved Problems Problem Noted Date Resolved Date Elevated BP without diagnosis of hypertension 06/28/2017 07/27/2019 Immunizations Name Administration Dates Next Due 4vHPV (Gardasil) 12/25/2014, 07/13/2013, 10/20/2000 Chicken Pox - History of Illness 07/11/1996 DTaP 03/07/2003 HepA Adult (19+ yrs) 12/25/2014, 10/20/2010 HepB Adult (Engerix-B, 20+ yrs, 3 09/09/2003, 04/10/2003, dose series) Influenza IIV4 (Quadrivalent) 0.5mL 06/02/2020, 05/23/2019, 05/17/2018, (09865) 05/16/2017, 05/19/2016, 06/18/2015 MMR 05/13/2012, 03/07/2003 Tdap 10/11/2011 Family History Medical History Relation Name Comments No Known Problems Father Migraines Mother Thyroid Disorder Mother Thyroid cancer No Known Problems Daughter Araceli Cancer, Breast Maternal Grandmother Diabetes Paternal Grandmother High Cholesterol Paternal Grandmother Hypertension Paternal Grandmother No Known Problems Sister 1 Destiny Diabetes Sister 2 Lorie Type 1 diabetes. 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 Pulse 102 06/17/2021 1:50 PM FIELD RING ASSEMBLER Temperature 37 ??C (98.6 ??F) 01/13/2021 8:02 AM CDT Respiratory Rate 16 06/17/2021 1:44 PM FIELD RING ASSEMBLER Oxygen Saturation - - Inhaled Oxygen Concentration - - Weight 63 kg (139 lb) 06/17/2021 1:44 PM FIELD RING ASSEMBLER Height 157.5 cm (5' 2) 06/17/2021 1:44 PM FIELD RING ASSEMBLER Body Mass Index 25.42 06/17/2021 1:44 PM FIELD RING ASSEMBLER Plan of Treatment Health Maintenance Due Date Last Done Comments Hep C Screening (Preventive 1990 Services) COVID-19 Vaccine (#1) 1990 Influenza (#1) 2022 06/02/2020, 05/23/2019, 05/17/2018, Additional history exists Adult Preventive Visit 01/28/2023 01/28/2021, 07/27/2019, 12/28/2017 Pap 01/28/2026 01/28/2021, 12/28/2017 DTaP/Tdap/Td (4 - Tdap) 02/05/2027 02/05/2017, 10/11/2011, 03/07/2003, Additional history exists Zoster/Shingles (1 of 2) 2040 HepB Completed 09/09/2003, 04/10/2003, 03/07/2003 HPV Vaccine Completed 12/25/2014, 07/13/2013, 10/20/2010, Additional history exists HepA Aged Out 12/25/2014, 10/20/2010, No longe r eligible 10/20/2010 based on patient 's age to complete this topic HIV Screening (Preventive Completed 12/28/2017 Services) Hib Aged Out No longer eligib le based on patient 's age to complete this topic IPV (Polio) Aged Out No longer eligib le based on patient 's age to complete this topic MCV4 Aged Out No longer eligib le based on patient 's age to complete this topic Pneumococcal Aged Out No longer eligib le based on patient 's age to complete this topic Insurance Payer Benefit Plan / Subscriber ID Effective Dates Phone Addre ss Type Group BCBS BCBS MNCARE [id number] 2019-Present [address] [address] [place] [address] Binta Mckeon Personal/Family Self 1990 [address]) [address] [place] [address] Binta Mckeon Personal/Family Self 1990 [address] [place] [address] Care Teams Culinary Worker Relationship Specialty Start Date End Date Patricia Da Silva PA-C PCP - General 10/13/15 [address] [place] [address]
--- OUTSIDE RECORDS SUMMARY | 2022-03-24 09:53 | XMS_ITS | Encounter Summary ---
:1990 Author Organization [facility] Address [address] [place] [address] Care Team Providers Name Role Phone Patricia Da Silva PA-C Primary Care Provider Reason for Visit Reason Comments Annual Exam Pap Encounter Details Date Type Department Care Team Description 01/28/2021 Office Visit [place] [address] Patricia Da Silva, Annual p hysical exam (Primary Dx); Family [facility] PATSY Pap smear for cervical cancer screening; [address] Encounter for surveillance of contracept hosea pills; [place], [place] History of al cohol abuse; [id number] FH: malignant neoplasm of thyroid; [phone] Screen for STD (sexually transmitted disease) (Work) Social History Tobacco Use Types Packs/Day [...] Sign Reading Time Taken Comments Blood Pressure 133/85 01/28/2021 10:40 AM CDT Pulse 82 01/28/2021 10:40 AM CDT Temperature - - Respiratory Rate - - Oxygen Saturation - - Inhaled Oxygen Concentration - - Weight 75.3 kg (166 lb) 01/28/2021 10:40 AM CDT Height 157.5 cm (5' 2) 01/28/2021 10:40 AM CDT Body Mass Index 30.36 01/28/2021 10:40 AM CDT documented in this encounter Progress Notes Patricia Da Silva PA-C - 01/28/2021 10:40 AM CDT Preventive Exam SUBJECTIVE: 30 y.o. y/o patient presents for a routine preventive physical exam. Additional Concerns: She is still sober and doing well. 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 She may continue on with more schooling. 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 She has cleaned up her diet, stopped drinking soda andis working out daily now cardio and strength and has lost 15 lbs and feels great. Needs refill of OCP. Doing well on that. No other concerns today. 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 LMP: Patient's last menstrual period was 01/21/2021 (lmp unknown). Pap hx: Does patient have history of abnormal pap smear? no. Mammogram: N/A. Prev Med: Colonoscopy: N/A. Dexa: N/A. Past Medical, Family, Surgical and Social History, Drug allergies and Medications have been reviewedand [facility] in [facility] today. Review of Systems: The remainder of complete ROS is negative except as noted above. OBJECTIVE: BP 133/85 (BP Location: Left Arm, BP Cuff Size: Large) Pulse 82 Ht 5' 2 (1.575 m) Wt 166 lb (75.3 kg) LMP 01/21/2021 (LMP Unknown) BMI 30.36 kg/m?? General: Patient alert, in NAD. HEENT: PERRLA. EOMI. Bilateral TM's, external canals normal. Nose: normal mucosa, turbinates, without lesions. Oropharynx normal, normal teeth, gums, tongue, moist mucosa. Skin: Warm, dry, without lesions or rashes noted. Neck: Supple, without thyromegaly, palpable masses or lymphadenopathy. CV: RRR without murmurs, rubs or gallops. Resp: Clear to auscultation b/l without rhonchi, wheezes or rales. Abdomen: Soft, non-tender, without hepatosplenomegaly or palpable masses, b/s x 4. Breasts: Non tender b/l, without masses, nipple discharge, erythema, or skin changes. B/L nipple piercing. Pelvic: Normal external genitalia and urethra, without lesions noted. Casey, moist vaginal and cervical mucosa, without lesions. Ovaries and uterus non- tender and no palpable masses appreciated. Lymphatic: No neck, supraclavicular or axillary lymphadenopathy. Upper extremities: No visible deformities. Lower extremities: No edema, varicosities, or deformity. DP/PT pulses 2/4+ b/l. MS: Normal cervical, thoracic and lumbar spine without visible deformities. Neuro: Normal gait, patellar reflexes 2/4+ b/l, biceps reflexes 2/4+ b/l. Psychiatric: Alert & oriented with normal affect and insight, does not appear depressed or anxious. ASSESSMENT: 1. Annual physical exam 2. Pap smear for cervical cancer screening 3. Encounter for surveillance of contraceptive pills 4. History of alcohol abuse 5. FH: malignant neoplasm of thyroid 6. Screen for STD (sexually transmitted disease) PLAN: Binta was seen today for annual exam. Diagnoses and all orders for this visit: Annual physical exam Pap smear for cervical cancer screening - Scr Pap Smer; Obtain Prep&Convy-Lab - PAP Test - HPV with 16 18 Genotyping Encounter for surveillance of contraceptive pills - Norethin Randolph-Eth Estrad-FE (BLISOVI FE 07/30) 1-20 MG-MCG tablet; Take 1 Tablet by mouth daily. History of alcohol abuse FH: malignant neoplasm of thyroid Screen for STD (sexually transmitted disease) - Chlamydia and GC STD; Future - Chlamydia and GC STD Pt will continue healthy diet, regular exercise and her OCP and recheck prn and yearly. HRK Lore Rocha RN - 01/28/2021 10:40 AM CDT Dear Binta, I am writing to let you know that your PAP and HPV is negative. This means that your Pap result was normal. No cancer or pre-cancerous cells were seen. However, your Pap test results shows the presence of yeast. Yeast and bacteria are commonly found inthe vagina. We do not normally treat if you are not experiencing any symptoms. If you are experiencing any vaginal symptoms of burning, discharge, itching or foul odor, please call your clinic for treatment options. Your next PAP and HPV should be in 5 years. Continue to schedule your annual preventive exams for your overall health. Sincerely, Blanche Cordova Cervical Cancer Screening and Management documented in this encounter Plan of Treatment Not on filedocumented as of this encounter Procedures Procedure Name Priority Date/Time Associated Diagnosis Comme nts CHLAMYDIA & GC (14 Routine 01/28/2021 12:01 PM Screen for STD Results for this YEARS AND OLDER) CDT (sexually procedure a re in transmitted disease) the res ults section. PAP TEST Routine 01/28/2021 11:01 AM Pap smear for Results for this CDT cervical cancer procedure ar e in screening the results section. HPV WITH 16 18 Routine 01/28/2021 11:01 AM Pap smear for Resul ts for this GENOTYPING, CDT cervical cancer procedure ar e in CERVICAL/ENDOCERVIC screening the resu lts AL section. documented in this encounter Results Chlamydia and GC STD (01/28/2021 12:01 PM CDT) [facility] Method Time Signature Chlamydia Not Not 01/29/2021 [facility] Trachomatis Detected Detected 1:14 AM CDT [facility]AL [facility] STD N. gonorrhoeae Not Not 01/29/2021 [facility] STD Detected Detected 1:14 AM CDT CENTRAL LAB Specimen Anatomical Collection Method Collection Time Receive d Time (Source) Location / / Volume Laterality Swab STD ENTIRE ENDOCERVIX Non-blood 01/28/2021 12:01 2020 / Unknown Collection / PM CDT 12:01 PM CDT Unknown Narrative [facility] - 01/29/2021 1:14 AM CDT Test performed by Emd Teacher Mediated Amplification (TMA). Patricia Da Silva PA-C LAB_1 Performing Organization Address City/State/ZIP Code Phon e Number [facility] [address] [address] HPV with 16 18 Genotyping (01/28/2021 11:01 AM CDT) [facility] Method Time [facility] HPV High Risk Not Detected Not detected 01/31/2021 [facility] Type 16 PCR 7:04 AM CDT HOSPITAL HPV High Risk Not Detected Not Detected 01/31/2021 [facility] Type 18 PCR 7:04 AM CDT HOSPITAL HPV High Risk Not Detected Not detected 01/31/2021 [facility] Other Than 7:04 AM CDT [facility] 16/18 Specimen Anatomical Collection Method Collection Time Receive d Time (Source) Location / / Volume Laterality Cervical Broom ENTIRE ENDOCERVIX 01/28/2021 11:01 01/09 / Unknown AM CDT 12:00 PM CDT [facility] - 01/31/2021 7:04 AM CD T The Saima HPV test is a qualitative in vitro test for the detection of Human Papillomavirus in [facility] patient specimens. The test utilizes amplification of target DNA by Polymerase Chain Reaction (PCR ) and nucleic acid hybridization for the detection of 14 high-risk (HR) HPV types. The assay tests for high risk types (16, 18, 31, 33, 35, 39, 45, 51, 52, 56, 58, 59, 66, and 68). Patricia Da Silva PA-C LAB_1 Performing Organization Address City/State/ZIP Code Phon e Number [address] [address] PAP Test (01/28/2021 11:01 AM CDT) Component Value Ref Test Analysis Performed At [facility] Method Time [facility] Case Report Pap ? Case: [id number] ? 02/10/2021 [facility] Authorizing Provider: ??Chelita juarez, Patricia Adams PA-C ?Collected: ? 01/28/2021 1101 ? 10:26 AM LABORAT ORY Ordering Location: ? [facility] ? Received: ?01/28/2021 1200 ? CDT ? Medicine ? First Screen: ? Elena Manzanares, CT ? (ASCP) ? Specimen: ?Pap Test, Rou bonita, Cervix/Endocervix ? Pap Specimen Satisfactory for 02/10/2021 [facility] Adequacy evaluation, 10:26 AM LABORATORY endocervical/lebron CDT sformation zone component present. Pap Negative for 02/10/2021 [facility] Electr onically Interpretation intraepithelial 10:26 AM LABORATOR Y signed by lesion or CDT Storm Manzanares D, CT ( CP) on ([facility]). 02/10/2021 a t 10:26 AM Pap Other Fungal organisms 02/10/2021 [facility] Findings morphologically 10:26 AM LABORATORY consistent with CDT Jaylyn spp. Pap Disclaimer The Pap test is a 02/10/2021 METHOD IST screening test 10:26 AM LABORATORY designed to aid CDT in the detection of cervical cancer and its precursor lesions. It is not a diagnostic procedure and should not be used as the sole means of detecting cervical cancer. Both false-positive and false-negative results may occur. Gross The specimen is 02/10/2021 [facility] Description received in 10:26 AM LABORATORY [facility] fixative CDT and properly labeled. 1 Pap-stained [facility] slide is prepared. Embedded Images 02/10/2021 [facility] 10:26 AM LABORATORY CDT Specimen Anatomical Collection Method Collection Time Receive d Time (Source) Location / / Volume Laterality Other Specimen ENTIRE ENDOCERVIX 01/28/2021 11:01 01/09 Type / Unknown AM CDT 12:00 PM CDT Comment: LMP: Patient's last menstrual p eriod was 01/21/2021 (lmp unknown). Patricia Da Silva PA-C LAB PATHOLOGY Performing Organization Address City/State/ZIP Code Phon e Number [facility] [address] [place] [address] documented in this encounter Visit Diagnoses Diagnosis Annual physical exam - Primary Routine general medical examination at a health care facility Pap smear for cervical cancer screening Screening for malignant neoplasm of the cervix Encounter for surveillance of contracept hosea pills Surveillance of previously prescribed co ntraceptive pill History of alcohol abuse Nondependent alcohol abuse, in remission FH: malignant neoplasm of thyroid Family history of other specified malign ant neoplasm Screen for STD (sexually transmitted dis ease) Screening examination for venereal disea se documented in this encounter Care Teams Mainframe Systems Programmer Relationship Specialty Start Date End Date Patricia Da Silva PA-C PCP - General 10/13/15 [address] [place] [address] documented as of this encounter
--- OUTSIDE RECORDS SUMMARY | 2022-03-24 09:53 | XMS_ITS | Encounter Summary ---
:1990 [facility] Address [address] [place] [address] Care Team Providers Name Role Phone Patricia Da Silva PA-C Primary Care Provider Encounter Details Date Type Department Care Team Description 05/23/2019 Immunization [facility] Need for prophylactic [address] [place] [address] inoculation against [phone] influenza Social History Tobacco Use Types Packs/Day Years [...] influenza documented in this encounter Care Teams Valve Inserter Relationship Specialty Start Date End Date Patricia Da Silva PA-C PCP - General 10/13/15 [address] [place] [address] documented as of this encounter
--- OUTSIDE RECORDS SUMMARY | 2022-03-24 09:54 | XMS_ITS | Encounter Summary ---
:1990 Author Organization [facility] Address [address] [place] [address] Care Team Providers Name Role Phone Patricia Da Silva PA-C Primary Care Provider Encounter Details Date Type Department Care Team Description 05/17/2018 Immunization [facility] Need for prophylactic [address] [place] [address] inoculation against [phone] influenza Social History Tobacco Use Types Packs/Day [...] influenza documented in this encounter Care Teams Pilot Boat Captain Relationship Specialty Start Date End Date Patricia Da Silva PA-C PCP - General 10/13/15 [address] [place] [address] documented as of this encounter
--- OUTSIDE RECORDS SUMMARY | 2022-03-24 09:54 | XMS_ITS | Encounter Summary ---
:1990 Author Organization [facility] Address [address] [place] [address] Care Team Providers Name Role Phone Patricia Da Silva PA-C Primary Care Provider Encounter Details Date Type Department Care Team Description 02/23/2017 Lab Visit [facility] Urinary frequency [id number] [place] [address] Social History Tobacco Use Types Packs/Day Years Used Date Smoking Tobacco: Former Cigarettes Quit : 07/09/2012 Smokeless Tobacco: Never Alcohol Use Standard Drinks/Week Comments Yes 2 (1 standard drink = 0.6 oz pure alcoho l) 2-3 drinks per week. Alcohol Habits Answer Date Recorded How often do you have a drink containing alcohol? Not asked How many drinks containing alcohol do you have on Not asked a typical day when you are drinking? How often do you have six or more drinks on one Not asked occasion? Comment: 2-3 drinks per week. 07/09/2016 Sex Assigned at Date Recorded Not on file documented as of this encounter Plan of Treatment Not on filedocumented as of this encounter Procedures Procedure Name Priority Date/Time Associated Comments Diagnosis URINE MICROSCOPIC Routine 02/23/2017 3:12 PM Resu lts for this CDT procedure are i n the results section. URINE CULTURE Routine 02/23/2017 3:12 PM Results for this CDT procedure are i n the results section. UR NPT HOLD FOR Routine 02/23/2017 3:03 PM Urinary frequency R esults for this CULTURE CDT procedure are i n the results section. documented in this encounter Results (ABNORMAL) Urine Microscopic (02/23/2017 3:12 PM CDT) [facility] [employer] Method Time Signature Urine WBC 10-24 (A) 0 - 4 PN SOFT /HPF Urine RBC 3-4 (A) 0 - 2 PN SOFT /HPF Bacteria Urine Occasional (A) /HPF PN SOFT Epithelial Occasional /HPF PN SOFT Cells Specimen (Source) Anatomical Collection Method Collection Time Re ceived Time Location / / Volume Laterality Urine: 02/23/2017 3:12 PM CDT Narrative PN SOFT - 02/23/2017 4:59 PM CDT Performed at [facility], [address] [place] [address] CLIA number [id number] Dejuan Kearns MD LAB_1 Performing Organization Address City/State/ZIP Code Phon e Number PN SOFT [address] [place] [address] (ABNORMAL) Urine Culture (02/23/2017 3:12 PM CDT) [facility] [employer] Method Time Signature Source Urine PN SOFT Site PN SOFT Urine Cuture 10 to 50,000 02/25/2017 PN SOFT col/ml 9:40 AM CDT Escherichia coli (A) Urine Culture Escherichia coli 02/25/2017 PN SOFT 10 to 50,000 col/ml 9:40 AM CDT (A) Specimen (Source) Anatomical Collection Method Collection Time Re ceived Time Location / / Volume Laterality Urine: 02/23/2017 3:12 PM CDT Narrative PN SOFT - 02/25/2017 9:40 AM CDT Performed at [facility], [address] [place] [id number], CLIA Number [id number] Organism Antibiotic Method Susceptibility Escherichia coli Amikacin GALLITO SENSITIVITY <=2 mcg/mL: Sen sitive Escherichia coli Ampicillin/Sulbactam GALLITO SENSITIVITY <=2 mcg/mL : Sensitive Escherichia coli Cefazolin GALLITO SENSITIVITY <=4 mcg/mL: Sen sitive Comment: Isolates susceptible to Cefa zolin are also susceptible to Cephadroxil and Cephalexin. Escherichia coli Ciprofloxacin GALLITO SENSITIVITY <=0.25 mcg/mL: Sensitive Escherichia coli Ertapenem GALLITO SENSITIVITY <=0.5 mcg/mL: S ensitive Escherichia coli Imipenem GALLITO SENSITIVITY <=0.25 mcg/mL: Sensitive Escherichia coli Levofloxacin GALLITO SENSITIVITY <=0.12 mcg/mL: Sensitive Escherichia coli Meropenem GALLITO SENSITIVITY <=0.25 mcg/mL: Sensitive Escherichia coli Nitrofurantoin GALLITO SENSITIVITY <=16 mcg/mL: Se nsitive Comment: Limited to use in lower urin zofia tract infections. Do not use in patients with Creatin ine Clearance less than 60 ml/min. Escherichia coli Piperacillin/Tazobactam GALLITO SENSITIVITY <=4 mcg /mL: Sensitive Escherichia coli Tobramycin GALLITO SENSITIVITY <=1 mcg/mL: Sen sitive Escherichia coli Trimethoprim/Sulfamethoxazole GALLITO SENSITIVITY < =20 mcg/mL: Sensitive Dejuan Kearns MD LAB_1 Performing Organization [address] [facility] Phon e Number PN SOFT [address] [place], [place] [id number] (ABNORMAL) UR NPT Hold for Culture (02/23/2017 3:03 PM CDT) [facility] Method Time Signature Urine Type URINE:clean PN SOFT cat U BILI Negative Negative PN SOFT Blood Urine Moderate (A) Neg - Trace PN SOFT Glucose, Negative Neg-30 PN SOFT Qualitative U mg/dL Ketones Negative Negative PN SOFT Leukocyte Trace (A) Negative PN SOFT Esterase Urine Nitrite Urine Negative Negative PN SOFT pH Urine 7.0 5.0 - 8.0 PN SOFT Protein Urine 30 (A) Neg - Trace PN SOFT mg/dL U Specific 1.020 1.005 - PN SOFT Moira 1.030 Urobilinogen Negative Negative PN SOFT Urine Eu/dL Turbidity Clear Clear PN SOFT Color Yellow PN SOFT Specimen (Source) Anatomical Collection Method Collection Time Re ceived Time Location / / Volume Laterality Urine: 02/23/2017 3:03 PM CDT Narrative PN SOFT - 02/23/2017 3:32 PM CDT Performed at [facility], [address] [place] [address] CLIA number [id number] Dejuan Kearns MD LAB_1 Performing Organization Address [facility] Phon e Number PN SOFT [address] [place] [address] [phone] documented in this encounter Visit Diagnoses Diagnosis Urinary frequency documented in this encounter Care Teams Liability Claims Adjuster Relationship Specialty Start Date End Date Patricia Da Silva PA-C PCP - General 10/13/15 [address] [place] [address] documented as of this encounter
--- OUTSIDE RECORDS SUMMARY | 2022-03-24 09:54 | XMS_ITS | Encounter Summary ---
:1990 Author Organization [facility] Address [address] [place] [address] Care Team Providers Name Role Phone Patricia Da Silva PA-C Primary Care Provider Encounter Details Date Type Department Care Team Description 01/09/2018 juan Agudelo [phone] Social History Tobacco Use Types Packs/Day Years Used Date Smoking Tobacco: Former Cigarettes Quit : 07/09/2012 Smokeless Tobacco: Never Alcohol Use Standard Drinks/Week Comments Yes 2 (1 standard drink = 0.6 oz pure alcoho l) Sex Assigned at Date Recorded Not on file documented as of this encounter Progress Notes FAMILY MEDICINEJUAN PROVIDER - 01/09/2018 12:00 AM CDT juan Treatment Plan Diagnosis Urinary Tract Infection Visit Date January 09, 2018 Binta Mckeon Date of : 89 Provider Melisa Sutherland, Nurse Practitioner Note From Provider Binta Take good care! Melisa RAMEY Treatment Plan Since you have a bacterial infection, let's try an antibiotic. [facility] . I've also listed a few of the best ways to soothe your discomfortand some additional self-care tipsto get you on the road to feeling better.If your symptoms don't improve after 3 days, or if you haveq uestions, please select Help to Request a Call Back andwe'll talk about your next steps for free. Order(s) Macrobid 100 mg capsule Take 1 capsule by mouth every twelve hours with meals for 10 days Note: Take on a full stomach. Refills: None Sent To: [facility] [address] [place] [address] Treatment Plan Self Care Tip Topics Warm Packs Drink Water Avoid Caffeine What to Expect If you follow the recommendations I made on the Treatment tab, your symptomsshould improve in about 3 days. If your symptoms don'timprove after 3 days, or if you have questions, please select Help toRequest a Call Back and we'll helpdetermine your next step for free. What to Watch Out For Give us a call if you experience: ??? High fever ??? Shaking chills ??? Worsening pain with urination ??? Severe pain in your back, abdomen or pelvis My Conditions, Orders, Allergies as of January 09, 2018 Standard condition list None Current orders Macrobid (nitrofurantoin monohyd/m-cryst) norgestimate-ethinyl estradiol (norgestimate-ethinyl estradiol) Allergies None [facility]ex Information [facility] [employer] We are an online clinic open 31/01. If you have any questions or comments about this visit, please call or email [email or web address] documented in this encounter Plan of Treatment Not on filedocumented as of this encounter Visit Diagnoses Not on filedocumented in this encounter Care Teams Investment Recovery Technician Relationship Specialty Start Date End Date Patricia Da Silva PA-C PCP - General 10/13/15 [address] [place] [address] documented as of this encounter
--- OUTSIDE RECORDS SUMMARY | 2022-03-24 09:54 | XMS_ITS | Encounter Summary ---
:1990 Author Organization [facility] Address [address] [place] [address] Care Team Providers Name Role Phone Patricia Da Silva PA-C Primary Care Provider Encounter Details Date Type Department Care Team Description 05/19/2016 Immunization [facility] Need for prophylactic [address] [place] [address] inoculation against [phone] influenza (Prim zofia Dx) Social History Tobacco Use Types Packs/Day Years Used Date Smoking Tobacco: Never Assessed Sex Assigned at Date Recorded Not on file documented as of this encounter Plan of Treatment Not on filedocumented as of this encounter Visit Diagnoses Diagnosis Need for prophylactic vaccination and in oculation against influenza - Primary documented in this encounter Care Teams Permastone Applicator Relationship Specialty Start Date End Date Patricia Da Silva PA-C PCP - General 10/13/15 [address] [place] [address] documented as of this encounter
--- OUTSIDE RECORDS SUMMARY | 2022-03-24 09:54 | XMS_ITS | Encounter Summary ---
:1990 Author Organization [facility] Address [address] [place] [address] Care Team Providers Name Role Phone Patricia Da Silva PA-C Primary Care Provider Encounter Details Date Type Department Care Team Description 08/15/2017 E-Visit [facility] Patricia Da Silva, Dx: Uri nary tract Medicine [place] [address] hematuria, site [place], [place] [address] unspecified (Primary [address] Dx) [phone] Social History Tobacco Use Types Packs/Day Years [...] documented as of this encounter Nursing Notes Patricia Da Silva PA-C - 08/17/2017 11:22 AM SOIL CONSERVATION TECHNICIAN From: Binta Mckeon Sent: 08/15/2017 4:44 PM SOIL CONSERVATION TECHNICIAN Subject: E-Visit Submission: Bladder infection E-Visit Submission: Bladder infection Question: Are you currently experiencing pain with urination? Answer: Yes Question: Are you currently experiencing frequent urination? Answer: Yes Question: Are you currently experiencing urgency in urination? Answer: Yes Question: How many days have you had these symptoms? Answer: 1.5 Question: Are you currently experiencing severe pain on your side between ribs and hip, nausea, vomiting, or shaking chills? (If yes, seek immediate medical evaluation) Answer: No Question: Are you currently experiencing fever that is 100.5 or greater? Answer: No Question: Are you currently experiencing abdominal pain? Answer: Yes Question: Are you currently experiencing blood in your urine? Answer: No Question: Have you had a recent change in vaginal discharge? Answer: No Question: Are you experiencing vaginal itching? Answer: No Question: Are you experiencing vaginal odor? Answer: No Question: Are you experiencing pain with intercourse? Answer: No Question: Do you have diabetes? Answer: No Question: Do you have current kidney stones, renal impairment, urologic abnormalities, or have had urinary catheterization or other urologic procedure or instrumentation within the last 2 weeks? Answer: No Question: Are you ? Answer: No Question: Are you immunosuppressed? (HIV positive, receiving chemotherapy, taking steroids, have sickle cell disease) Answer: No Question: Are you a fci or extended care patient? Answer: No Question: Have you had contact with a partner infected with a sexually transmitted infection? Answer: No Question: Have you taken antibiotics for a urinary tract infection within the last 4 weeks? Answer: No Question: Have you had pyelonephritis (kidney infection) within the last 3 months? Answer: No Question: Have you had 2 or more urinary tract infections within the last 6 months? Answer: No Question: Have you had 3 or more urinary tract infections within the last 12 months? Answer: No Question: Have you been discharged from the hospital within the last 2 weeks? Answer: No Question: If yes, please provide additional information on your recent hospitalization. Answer: Question: If your doctor would like to prescribe a medication for you, please provide the name and the location or address of the pharmacy where you would like to fruit picker machine operator your medication. Answer: [facility] Question: What medication allergies do you have? Answer: None Question: Please provide a phone number where you can be reached if we need to call you. Answer: [phone] CONSERVATION TECHNICIAN documented in this encounter Plan of Treatment Not on filedocumented as of this encounter Visit Diagnoses Diagnosis Urinary tract infection without hematuri a, site unspecified - Primary documented in this encounter Care Teams Dispatch Specialist Relationship Specialty Start Date End Date Patricia Da Silva PA-C PCP - General 10/13/15 [address] [place] [address] documented as of this encounter
--- OUTSIDE RECORDS SUMMARY | 2022-03-24 09:54 | XMS_ITS | Encounter Summary ---
:1990 Author Organization [facility] Address [address] [place] [address] Care Team Providers Name Role Phone Patricia Da Silva PA-C Primary Care Provider Encounter Details Date Type Department Care Team Description 09/05/2018 juan Agudelo [phone] Social History Tobacco Use Types Packs/Day Years Used Date Smoking Tobacco: Former Cigarettes Quit : 07/09/2012 Smokeless Tobacco: Never Alcohol Use Standard Drinks/Week Comments Yes 2 (1 standard drink = 0.6 oz pure alcoho l) Sex Assigned at Date Recorded Not on file documented as of this encounter Progress Notes FAMILY MEDICINEJUAN PROVIDER - 09/05/2018 12:00 AM CST juan Treatment Plan Diagnosis Viral Sinusitis Visit Date September 05, 2018 Binta Gamingen Date of : 89 Provider Silvana Yousif, Nurse Practitioner Note From Provider Binta, let's have you watch this viral sinus infection video that I've included for you today. Requst a Call Back if you are not improving in the next few days! Silvana Treatment Plan Let???s get you feeling better in the next 24 hours by using a prescription nasal steroid and an effective blend of jsew-aww-zjomnnb products to kick this viral infection. We???ll work to reduce your pain and inflammation, help drain that irritating mucus and prevent this from worsening. Because this infection is caused by a virus, an antibiotic won???t be effective at helping your pain or treating the virus. I sent your nasal steroid prescription to [facility] . This medication is also available kigd-tvx-tugjybm, so you may want to check with your pharmacy to see which option is more cost-friendly. If your symptoms don???t improve after 24 hours, or if you have questions, select Help to Request a Call Back and we???ll adjust your treatment for free. Order(s) Flonase Allergy Relief 50 mcg/actuation spray,suspension [place] 2 spray into both nostrils once a day as needed for 30 days Note: Start with 2 sprays in both nostrils daily for 1 week, then 1-2 sprays daily. Refills: 11 Sent To: [facility] [address] [place] [address] Treatment Plan Self Care Tip Topics Inflammation Relief with Ibuprofen Relieve Facial Pressure with Nasal Steroids How to Take Your Nasal Steroid Warm Packs Steam Therapy What to Expect Let???s work on reducing your pain and inflammation, as well as promoting drainage, to help kick theviral infection and get you feeling more like yourself. Follow the recommendations on the Treatment tab and your symptoms should begin to improve over the next 24 hours. If your symptoms haven???t impro gretchen after 1 day, select Help to Request a Callback and we???ll adjust your treatment for free. What to Watch Out For Give us a call immediately if you experience: ??? Vision changes ??? Redness occurring in the face ??? Increasing congestion ??? Worsening pain ??? High fevers My Conditions, Orders, Allergies as of September 05, 2018 Standard condition list None Current orders Flonase Allergy Relief (fluticasone) norgestimate-ethinyl estradiol (norgestimate-ethinyl estradiol) Allergies None [employer] Information [employer] We are an online clinic open 31/01. If you have any questions or comments about this visit, please call or email [email or web address] CAL ADMINISTRATIVE ASSISTANT documented in this encounter Plan of Treatment Not on filedocumented as of this encounter Visit Diagnoses Not on filedocumented in this encounter Care Teams Aluminum Boats Assembler Relationship Specialty Start Date End Date Patricia Da Silva PA-C PCP - General 10/13/15 [address] [place] [address] documented as of this encounter
--- OUTSIDE RECORDS SUMMARY | 2022-03-24 09:54 | XMS_ITS | Encounter Summary ---
:1990 Author Organization [facility] Address [address] [place] [address] Care Team Providers Name Role Phone Patricia Da Silva PA-C Primary Care Provider Reason for Visit Reason Comments Sinus Problem Encounter Details Date Type Department Care Team Description 06/28/2017 Office Visit [facility] Kelly Deng, DO Sinusitis, unspecified chronicity, unspe cified location (Primary Dx); Medicine [address] [place] [address] Elevated BP without diagnosi s of hypertension [address] [place] [address] [phone] Social History Tobacco Use Types Packs/Day Years [...] Sign Reading Time Taken Comments Blood Pressure 143/106 06/28/2017 1:43 PM MICROSOFT ARCHITECT Pulse 96 06/28/2017 1:43 PM MICROSOFT ARCHITECT Temperature - - Respiratory Rate 16 06/28/2017 1:33 PM MICROSOFT ARCHITECT Oxygen Saturation - - Inhaled Oxygen Concentration - - Weight 74.8 kg (165 lb) 06/28/2017 1:33 PM MICROSOFT ARCHITECT Height 160 cm (5' 3) 06/28/2017 1:33 PM MICROSOFT ARCHITECT Body Mass Index 29.23 06/28/2017 1:33 PM MICROSOFT ARCHITECT documented in this encounter Progress Notes Kelly Deng DO - 06/28/2017 1:30 PM CST IMPRESSION: 1. Sinusitis, unspecified chronicity, unspecified location 2. Elevated BP without diagnosis of hypertension ?? SUBJECTIVE: Frontal right sinus pressure x 2 weeks. Worse with coughing or sneezing. No maxillary sinus pain or pressure bilat. +nasal congestion, rhinorrhea. No sore throat. No ear pain, seen by myself for right ear pain on 06/14/2017, diagnosed with right otalgia due to OME, ETD and URI. No fevers or chills. Wears contacts. Wearing glasses more. Vision blurry intermittently in right eye. This will last 1 sec and typically occurs at end of dose of Sudafed. No lost of vision. Right eye intermittent sensitive to light with sun hitting the snow. No history of migraines. No concerns of . 1 child, daughter, not ill. No tobacco use Treatment Sudafed PRN ?? PMH: Patient Active Problem List Diagnosis ??? Contraceptive use ??? Elevated BP without diagnosis of hypertension ?? PSH: Past Surgical History: Procedure Laterality Date ??? SECTION x 1. ?? Medication:Updated and Reviewed in [employer], please see medication list. ?? ALLERGY: No Known Allergies ?? Social History: Social History Social History ??? Marital status: Single Spouse name: N/A ??? Number of children: 1 ??? 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 Smoking status: Former Smoker Types: Cigarettes Quit date: 07/09/2012 ??? Smokeless tobacco: Never Used ??? Alcohol use 1.2 - 1.8 oz/week 2 - 3 Glasses of wine per week Comment: 2-3 drinks per week. ??? Drug use: No ??? Sexual activity: Yes Partners: Male control/ protection: OCP, None Other Topics Concern ??? City Water Yes ??? Exercise No ??? Guns In Home No ??? Seat Belt No ??? Special Diet No ??? Weight Concern No Social History Narrative ?? ROS: See HPI Negative except above ?? OBJECTIVE: BP (!) 143/106 Pulse 96 Resp 16 Ht 5' 3 (160 cm) Wt 165 lb (84662 g) BMI 29.23 kg/m2 Estimated body mass index is 29.23 kg/(m^2) as calculated from the following: Height as of this encounter: 5' 3 (160 cm). Weight as of this encounter: 165 lb (31702 g). General: 27 y.o. female WD WN NAD. Pt is A& O X 3, Cooperative. Head: Head NC, AT Eyes: Conjunctiva clear & without erythema. No scleral icterus. Ears: External Ear without deformity. EAC neg for cerumen or deformity bilaterally. TMs dull virk bilat. TMs neg for erythema, perforation, evidence of fluid behind TM bilat, NO retraction or bulging of TM noted bilat Nose: No lesions noted externally. Moderate turbinate hypertrophy bilat. + right frontal sinus tenderness. No left frontal sinus tenderness. No maxillary sinus tenderness bilat. Mouth: Teeth are in good condition. Oral Cavity neg for lesions, ulceration, erythema, paleness. Mucous membranes moist. NO erythema of pharynx noted. Neck: Neck supple. No cervical LAD. CV: RRR without appreciated Murmurs.Normal S1, S2. Lungs: No increase in AP diameter. Lungs CTA bilat without Crackles, Wheezes, or Rhonchi Musculoskeletal: Gait coordinated and even. Posture erect. Psych: A & O x 3, does not appear acutely depressed or anxious. Appropriately dressed and groomed. Good eye contact. ?? Labs, Imaging, Referrals: No orders of the defined types were placed in this encounter. ?? ASSESSMENT: Binta Mckeon is a 27 y.o. female with ICD-10-CM 1. Sinusitis, unspecified chronicity, unspecified location J32.9 amoxicillin- clavulanate (AUGMENTIN)875-125 mg per tablet 2. Elevated BP without diagnosis of hypertension R03.0 Sinusitis, unspecified chronicity, unspecified location - amoxicillin-clavulanate (AUGMENTIN) 875-125 mg per tablet; Take 1 Tab by mouth two times a day for7 days. Will treat based on duration of symptoms. - - Discussed with patient decreased effectiveness of contraceptive method while using antibiotics, recommend condoms/abstinence until next menstrual period, patient understands. - Recommend OTC analgesics PRN, as tolerated. - Recommend PO decongestants PRN, as tolerated. - Recommend saline nasal spray TID PRN. - Recommend adequate rest and hydration. - Reviewed with patient signs and symptoms warranting repeat or emergent evaluation. Please contact clinic or be evaluated with new, change, worsening or persistence of symptoms. Elevated BP without diagnosis of hypertension - Likely secondary to acute illness, decongestant use. Follow up visit in 2 weeks for repeat BP check,visit. Reviewed with patient signs and symptoms warranting repeat or emergent evaluation. Please contact clinic or be evaluated with new, change, worsening or persistence of symptoms. Please note that the above medical documentation was created with voice recognition software and maycontain typographic errors. OSOFT ARCHITECT documented in this encounter Plan of Treatment Not on filedocumented as of this encounter Visit Diagnoses Diagnosis Sinusitis, unspecified chronicity, unspe cified location - Primary Elevated BP without diagnosis of hyperte nsion documented in this encounter Care Teams Clerical Office Worker Relationship Specialty Start Date End Date Patricia Da Silva PA-C PCP - General 10/13/15 [address] [place] [address] documented as of this encounter
--- OUTSIDE RECORDS SUMMARY | 2022-03-24 09:54 | XMS_ITS | Encounter Summary ---
:1990 Author Organization [employer] Address [address], [place] [address] Care Team Providers Name Role Phone Patricia Da Silva PA-C Primary Care Provider Reason for Visit Reason Comments Urinary Frequency Encounter Details Date Type Department Care Team Description 02/23/2017 Office Visit [facility] Dejuan Kearns, Urinary frequency Medicine (Primary Dx) [address] [address] [place] [address] [phone] Social History Tobacco Use Types Packs/Day Years [...] Sign Reading Time Taken Comments Blood Pressure 132/70 02/23/2017 2:54 PM CDT Pulse 96 02/23/2017 2:54 PM CDT Temperature 37.7 ??C (99.8 ??F) 02/23/2017 2:54 PM CDT Respiratory Rate - - Oxygen Saturation - - Inhaled Oxygen Concentration - - Weight 69.9 kg (154 lb) 02/23/2017 2:54 PM CDT Height 165.1 cm (5' 5) 02/23/2017 2:54 PM CDT Body Mass Index 25.63 02/23/2017 2:54 PM CDT documented in this encounter Progress Notes Dejuan Kearns MD - 02/23/2017 2:45 PM CDT SUBJECTIVE: Binta Mckeon is a 26 y.o. female who complains of urinary frequency, urgency and dysuria x 2 days, without flank pain, fever, chills, or abnormal vaginal discharge or bleeding. No past medical history on file. Outpatient Medications Prior to Visit Medication Sig Dispense Refill ??? Norgestimate-Ethinyl Estradiol (TRI-SPRINTEC) 0.18/0.215/0.25 MG-35 MCG tablet Take 1 Tab by mouth daily. 84 Tab 3 No facility-administered medications prior to visit. Social History Social History ??? Marital status: Single Spouse name: N/A ??? Number of children: 1 ??? Years of education: N/A Occupational History ??? 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 [...] Concern ??? City Water Yes ??? Exercise Yes ??? Seat Belt Yes ??? Special Diet No ??? Weight Concern No Social History Narrative OBJECTIVE: BP 132/70 Pulse 96 Temp 99.8 ??F (37.7 ??C) (Oral) Ht 5' 5 (1.651 m) Wt 154 lb (69.9 kg) BMI 25.63 kg/m2 Appears well, in no apparent distress. Vital signs are normal. The abdomen is soft without tenderness, guarding, mass, rebound or organomegaly. No CVA tenderness or inguinal adenopathy noted. Urine dipstick shows +LE. ASSESSMENT: UTI uncomplicated without evidence of pyelonephritis PLAN: Treatment per orders - also push fluids, may use Pyridium OTC prn. Call or return to clinic prn if these symptoms worsen or fail to improve as anticipated. Dejuan Kearns MD 3:15 PM 02/23/2017 documented in this encounter Plan of Treatment Not on filedocumented as of this encounter Results (ABNORMAL) UR NPT Hold for Culture (02/23/2017 3:03 PM CDT) [facility] gist Method Time Signature Urine Type URINE:clean PN [...] U Specific 1.020 1.005 - PN SOFT [place] 1.030 Urobilinogen Negative Negative PN SOFT Urine Eu/dL Turbidity Clear Clear PN SOFT Color Yellow PN SOFT Specimen (Source) Anatomical Collection Method Collection Time Re ceived Time Location / / Volume Laterality Urine: 02/23/2017 3:03 PM CDT Narrative PN SOFT - 02/23/2017 3:32 PM CDT Performed at [facility], [address] [place] [address] CLIA number [id number] Dejuan Kearns MD LAB_1 Performing Organization Address City/State/ZIP Code Phon e Number PN SOFT [address] [place] [address] documented in this encounter Visit Diagnoses Diagnosis Urinary frequency - Primary Urinary frequency documented in this encounter Care Teams Softlines Supervisor Relationship Specialty Start Date End Date Patricia Da Silva PA-C PCP - General 10/13/15 [address] [place] [address] documented as of this encounter
--- OUTSIDE RECORDS SUMMARY | 2022-03-24 09:54 | XMS_ITS | Encounter Summary ---
:1990 Author Organization [employer] Address [address] [place] [address] Care Team Providers Name Role Phone Patricia Da Silva PA-C Primary Care Provider Reason for Visit Reason Comments Annual Exam Encounter Details Date Type Department Care Team Description 12/28/2017 Office Visit [facility] Patricia Da Silva, Annual physical exam (Primary Dx); Medicine PAPavithra Encounter for surveillance of contracept hosea pills; [address] [address] [facility] Elevated BP without diagnosis of hyperte nsion; [place] Pap smear for cervical cancer screening; [id number] Screening for HIV (human immunodeficienc y virus); [phone] FH: malignant n eoplasm of thyroid; (Work) Need for lipid screening; [phone] Screening for d iabetes mellitus (Fax) Social History Tobacco Use Types Packs/Day Years Used Date Smoking Tobacco: Former Cigarettes Quit : 07/09/2012 Smokeless Tobacco: Never Alcohol Use Standard Drinks/Week Comments Yes 2 (1 standard drink = 0.6 oz pure alcoho l) Sex Assigned at Date Recorded Not on file documented as of this encounter Last Filed Vital Signs Vital Sign Reading Time Taken Comments Blood Pressure 130/88 12/28/2017 3:30 PM CDT Pulse 90 12/28/2017 3:30 PM CDT Temperature - - Respiratory Rate - - Oxygen Saturation - - Inhaled Oxygen Concentration - - Weight 74.8 kg (165 lb) 12/28/2017 3:30 PM CDT Height 157.5 cm (5' 2) 12/28/2017 3:30 PM CDT Body Mass Index 30.18 12/28/2017 3:30 PM CDT documented in this encounter Patient Instructions Patient InstructionsKiPatricia apple PA-C - 12/28/2017 3:30 PM CDT Here is plan below: 1) Finish off your current pill pack and then start the Low version like we discussed the next Tuesday after your next period. 2) We discussed that there are several lifestyle changes that can help improve overall mental and physical health including starting 2,000IU of Vitamin D3 daily and 2g fish oil daily. Also drinking 2-3liters of water per day and eating a healthy diet, more frequent, smaller meals of higher protein, lean meats, fruits, veggies, whole grains and avoid fast foods and processed foods and artificial sweeteners. Eat more healthy fats also like avocado, eggs, nuts, coconut oil, josias seeds. We also discussed the importance of getting regular exercise, aiming for 30-60min of cardio/strength/yoga at least 4-6 times per week. 3) Come in for lab only visit the first week of January to do fasting cholesterol and blood sugar. Makesure to drink full bottle of water that morning. 4) I'll notify you of your labs, call with any questions or concerns. Thanks, FERNANDO Villalta. documented in this encounter Progress Notes Lore Rocha RN - 01/03/2018 10:34 AM CDT Dear Binta, I am writing to let you know that your PAP is negative. This means that your Pap [...] next PAP and HPV should be in 3 years. Continue to schedule your annual preventive exams for your overall health. Sincerely, Lore Rocha RN on behalf of Dr. Mei Waddell, Trial Attorney Blanche [facility] Cervical Cancer Screening and Management Patricia Da Silva PA-C - 12/28/2017 5:21 PM CDT Addended by: PATRICIA DA SILVA on: 12/28/2017 05:21 PM Modules accepted: Orders Patricia Da Silva PA-C - 12/28/2017 3:30 PM CDT Preventive Exam SUBJECTIVE: 27 y.o. y/o patient presents for a routine preventive physical exam. Additional Concerns: Pt has had a few episodes of high blood pressure, she is on Tri Sprintec so I discussed doing the lo version instead and maybe that will help her bp and she will do that. Will workthrough any spotting. Tries to eat healthy, good with veggies. Some exercise, walks a lot but nothing really hard cardio. No supplements. Some soda. Lead Business Analyst History: : No obstetric history on file. LMP: No LMP recorded. Pap hx: Does patient have history of abnormal pap smear? no. Mammogram: N/A. Prev Med: Colonoscopy: N/A. Dexa: N/A. Past Medical, Family, Surgical and Social History, Drug allergies and Medications have been reviewedand updated in [facility] today. Review of Systems: The remainder of complete ROS is negative except as noted above. OBJECTIVE: BP 130/88 (BP Location: Left Arm, BP Cuff Size: Adult Large) Pulse 90 Ht 5' 2 (1.575 m) Wt 165 lb (74.8 kg) BMI 30.18 kg/m2 General: Patient alert, in NAD. HEENT: PERRLA. EOMI. Bilateral TM's, external canals normal. Nose: normal mucosa, turbinates, without lesions. Oropharynx normal, normal teeth, gums, tongue, moist mucosa. Skin: Warm, dry, without lesions or rashes noted. Lots of tattoos. Neck: Supple, without thyromegaly, masses or lymphadenopathy. CV: RRR without murmurs, rubs or gallops. Resp: Clear to auscultation b/l without rhonchi, wheezes or rales. Abdomen: Soft, non-tender, without hepatosplenomegaly, masses, or hernias, b/s x 4. Breasts: Non tender b/l, without masses, nipple discharge, erythema, or skin changes. B/L nipple piercing's. Pelvic: Normal external genitalia and urethra, without lesions noted. [place], moist vaginal and cervical mucosa, without lesions. Ovaries non-tender and not enlarged. Uterus non-tender, smooth, not enlarged. Lymphatic: No neck, supraclavicular or axillary lymphadenopathy. [...] anxious. ASSESSMENT: 1. Annual physical exam 2. Encounter for surveillance of contraceptive pills 3. Elevated BP without diagnosis of hypertension 4. Pap smear for cervical cancer screening 5. Screening for HIV (human immunodeficiency virus) 6. FH: malignant neoplasm of thyroid PLAN: Binta was seen today for annual exam. Diagnoses and all orders for this visit: Annual physical exam - Complete Blood Count-No Diff; Future Encounter for surveillance of contraceptive pills - Norgestimate-Ethinyl Estradiol (ORTHO TRI-CYCLEN LO) 0.18/0.215/0.25 MG-25 MCG tablet; Take 1 Tab by mouth daily. Elevated BP without diagnosis of hypertension Pap smear for cervical cancer screening - Pap Test Order Screening for HIV (human immunodeficiency virus) - HIV 1/2 Ag/Ab 4th Generation; Future FH: malignant neoplasm of thyroid - TSH with Free T4 (if TSH Abnormal); Future Here is plan below: 1) Finish off your current pill pack and then start the Low version like we discussed the next Tuesday after your next period. 2) We discussed that there are several lifestyle changes that can help improve overall mental and physical health including starting 2,000IU of Vitamin D3 daily and 2g fish oil daily. Also drinking 2-3liters of water per day and eating a healthy diet, more frequent, smaller meals of higher protein, lean meats, fruits, veggies, whole grains and avoid fast foods and processed foods and artificial sweeteners. Eat more healthy fats also like avocado, eggs, nuts, coconut oil, josias seeds. We also discussed the importance of getting regular exercise, aiming for 30-60min of cardio/strength/yoga at least 4-6 times per week. 3) Come in for lab only visit the first week of January to do fasting cholesterol and blood sugar. Makesure to drink full bottle of water that morning. 4) I'll notify you of your labs, call with any questions or concerns. Thanks, Patricia Da Silva, PAC. documented in this encounter Plan of Treatment Not on filedocumented as of this encounter Procedures Procedure Name Priority Date/Time Associated Comments Diagnosis PAP TEST ORDER Routine 12/28/2017 3:51 PM Pap smear for Result s for this CDT cervical cancer procedure ar e in screening the results section. ANATOMICAL PATH Routine 12/28/2017 3:51 PM Result s for this LIQUID BASED CDT procedure are i n the results section. documented in this encounter Results TSH with Free T4 (if TSH Abnormal) (12/28/2017 4:27 PM CDT) athologist Signature Thyroid 1.97 0.30 - PN SOFT Stimulating 4.50 Hormone uIU/mL Specimen Anatomical Collection Method Collection Time Receive d Time (Source) Location / / Volume Laterality 12/28/2017 4:27 PM 8 9:20 CDT PM CDT Narrative PN SOFT - 12/28/2017 9:59 PM CDT Performed at [facility], [address] [place] [address] CLIA number [id number] Patricia Da Silva PA-C LAB_1 Performing Organization Address City/State/ZIP Code Phon e Number PN SOFT [address] [place] [address] HIV 1/2 Ag/Ab 4th Generation (12/28/2017 4:27 PM CDT) [facility] Method Time Signature HIV-1 p24 Ag Nonreactive Nonreactive PN SOFT and HIV-1/HIV-2 Ab Specimen Anatomical Collection Method Collection Time Receive d Time (Source) Location / / Volume Laterality 12/28/2017 4:27 PM 8 9:20 CDT PM CDT Narrative PN SOFT - 12/28/2017 10:11 PM CDT Performed at [facility], [address] [place] [address] CLIA number [id number] Patricia Da Silva PA-C LAB_1 Performing Organization Address City/[facility] Phon e Number PN SOFT [address] [place] [address] Complete Blood Count-No Diff (12/28/2017 4:27 PM CDT) athologist Signature White Blood Cell 9.4 3.8 - 11.0 PN SOFT Count k/cmm Red Blood Cell 4.03 3.70 - PN SOFT Count 5.20 m/cmm Hemoglobin 13.1 11.8 - PN SOFT 15.5 g/dL Hematocrit 39.8 35.0 - PN SOFT 46.0 % Mean Corpuscular 98.8 80.0 - PN SOFT Volume 100.0 fL RDW 12.8 11.0 - PN SOFT 15.0 % Platelet Count 244 140 - 450 PN SOFT k/cmm Specimen Anatomical Collection Method Collection Time Receive d Time (Source) Location / / Volume Laterality 12/28/2017 4:27 PM 8 4:27 CDT PM CDT Narrative PN SOFT - 12/28/2017 4:29 PM CDT Performed at [facility], [facility] [address] [place] [address] CLIA number [id number] Patricia Da Silva PA-C LAB_1 Performing Organization Address City/[facility] Phon e Number PN SOFT [address] [place] [address] Pap Smear (12/28/2017 3:51 PM CDT) Specimen (Source) Anatomical Collection Method Collection Time Re ceived Time Location / / Volume Laterality 12/28/2017 3:51 PM CDT Narrative PN SOFT - 01/02/2018 1:13 PM CDT FINAL GYNECOLOGICAL CYTOLOGY REPORT Pathology #: [id number] ?Date Obtained: 12/28/2017 ? Date Received: 12/29/2017 INTERPRETATION/RESULTS: Negative for Intraepithelial Lesion or M alignancy. Fungal organisms morphologically consist ent with Jaylyn species. SPECIMEN ADEQUACY: Satisfactory for Evaluation. ??Endocervi sangita cells/transformation zone component present. Verified on 01/02/2018 ??by Herman SMILEY(ASCP) (electronic signature) CLINICAL NOTES: ?Abnormal bleeding: No, LMP: 5/3 ., Menstrual status: None ?Apply, Current form of therapy: Hormone Therapy LIQUID BASED PAP SMEAR SPECIMEN TYPE: ?ROUTINE CERVICAL PAP TEST PLEASE NOTE: The pap smear is a screening test design ed to aid in the detection of cervical cancer and its pre cursor lesions. It is not a diagnostic procedure and james uld not be used as the sole means of detecting cervical cancer. Both false-positive and false-negative report s may occur. Performed at [place] [address] [place] [address] Patricia Da Silva PA-C LAB_1 Performing Organization Address [facility] Phon e Number PN SOFT [address] [place] [address] Pap Test Order (12/28/2017 3:51 PM CDT) Analysis [facility] Time Signature Pap Smear Collected PN SOFT Monolayer tracking test Specimen Anatomical Collection Method Collection Time Receive d Time (Source) Location / / Volume Laterality 12/28/2017 3:51 PM 12/29/ 8 4:08 CDT AM CDT Narrative PN SOFT - 12/28/2017 3:52 PM CDT Performed at [facility], [facility] [place] [address] CLIA number [id number] Patricia Da Silva PA-C LAB_1 Performing Organization Address City/[facility] Phon e Number PN SOFT [address] [place] [address] documented in this encounter Visit Diagnoses Diagnosis Annual physical exam - Primary Routine general medical examination at a health care facility Encounter for surveillance of contracept hosea pills Surveillance of previously prescribed co ntraceptive pill Elevated BP without diagnosis of hyperte nsion Pap smear for cervical cancer screening Screening for malignant neoplasm of the cervix Screening for HIV (human immunodeficienc y virus) Special screening examination for other specified viral diseases FH: malignant neoplasm of thyroid Family history of other specified malign ant neoplasm Need for lipid screening Screening for lipoid disorders Screening for diabetes mellitus Annual physical exam Routine general medical examination at a health care facility Screening for HIV (human immunodeficienc y virus) Special screening examination for other specified viral diseases FH: malignant neoplasm of thyroid Family history of other specified malign ant neoplasm documented in this encounter Care Teams Plan Examiner Relationship Specialty Start Date End Date Patricia Da Silva PA-C PCP - General 10/13/15 [address] [place] [address] documented as of this encounter
--- OUTSIDE RECORDS SUMMARY | 2022-03-24 09:54 | XMS_ITS | Encounter Summary ---
:1990 Author Organization [employer] Address [address], [place] [address] Care Team Providers Name Role Phone Patricia Da Silva PA-C Primary Care Provider Reason for Visit Reason Comments Period Problems 3 weeks Encounter Details Date Type Department Care Team Description 10/05/2016 Office Visit [facility] Patricia Da Silva, Armand g between Medicine PATSY menses (Primary Dx) [address] [place] [address] [phone] Social History Tobacco Use Types Packs/Day Years Used Date Smoking Tobacco: Former Cigarettes Quit : 07/09/2012 Alcohol Use Standard Drinks/Week Comments Yes 2 [...] Sign Reading Time Taken Comments Blood Pressure 122/62 10/05/2016 11:44 AM CDT Pulse 84 10/05/2016 11:44 AM CDT Temperature - - Respiratory Rate 16 10/05/2016 11:44 AM CDT Oxygen Saturation - - Inhaled Oxygen Concentration - - Weight 66.5 kg (146 lb 11.2 oz) 10/05/2016 11:44 AM CDT Height - - Body Mass Index - - documented in this encounter Progress Notes Patricia Da Silva PA-C - 10/05/2016 11:52 AM CDT Clinic Visit SUBJECTIVE: CC: Chief Complaint Patient presents with ??? Period Problems 3 weeks History of Present Illness: Pt is here today for period issues. She had just ended a normal period then got her period again the end of the first week of her pill pack. She had spotting, sometimes clumpy discharge and it lasted through the whole pill pack and then she had a normal period again on her normal placebo week. She just started the next pill pack last Tuesday and so far no bleeding. She doesn't think she has missed any pills lately. She has been on tri sprintec for at least 4 years now since her daughter was born. She doesn't think they gave her a new generic at all. Didn't start any new supplements, wasn't on antibiotic recently. Denies any vaginal infection symptoms, no discharge, burnin g, odor. Feels fine otherwise. Nothing stressful has happened. She just isn't sure why this happened. PMH, Allergies and Medications [facility]. Review of Systems: Review of systems reviewed and found to be negative except as noted above in HPI. OBJECTIVE: Vital Signs: BP 122/62 mmHg Pulse 84 Resp 16 Wt 146 lb 11.2 oz (66.543 kg) LMP 09/13/2016 (Exact Date) General: Pleasant in NAD. Skin: Warm and dry without obvious lesions or rashes. Psych: Well dressed and groomed, normal affect. ASSESSMENT: Encounter Diagnosis Name Primary? Spotting between menses Yes PLAN: Binta was seen today for period problems. Diagnoses and all orders for this visit: Spotting between menses Pt reassured that she doesn't have any reasons that her symptoms would be concerning at this time and sometimes it is normal to get spotting on OCPs. I recommended she give it a couple more months and if symptoms persist we can discuss further evaluation and possibly changing OCP. She can take an ironpill the days she is bleeding if it persists and if anything changes or worsens she will let me knowsooner. Pt is fine with this plan. HRK 15min spent with pt today, all in consult about above A/P. HRK documented in this encounter Plan of Treatment Not on filedocumented as of this encounter Visit Diagnoses Diagnosis Spotting between menses - Primary Metrorrhagia documented in this encounter Care Teams Highway Traffic Control Technician Relationship Specialty Start Date End Date Patricia Da Silva PA-C PCP - General 10/13/15 [address] [place] [address] documented as of this encounter
--- OUTSIDE RECORDS SUMMARY | 2022-03-24 09:54 | XMS_ITS | Encounter Summary ---
:1990 Author Organization [employer] Address [address], [place] [address] Care Team Providers Name Role Phone Patricia Da Silva PA-C Primary Care Provider Reason for Visit Reason Comments Ear Pain Encounter Details Date Type Department Care Team Description 06/14/2017 Office Visit [facility] Kelly Deng, DO Otalgia of right ear (Primary Dx); Medicine [address] [facility] Acute upper respiratory infe ction [address] [place] [address] [phone] (Wo rk) Social History Tobacco Use Types [...] Taken Comments Blood Pressure - - Pulse 70 06/14/2017 4:30 PM FLOORING MECHANIC Temperature 37.1 ??C (98.7 ??F) 06/14/2017 4:30 PM FLOORING MECHANIC Respiratory Rate - - Oxygen Saturation - - Inhaled Oxygen Concentration - - Weight 74.8 kg (165 lb) 06/14/2017 4:30 PM FLOORING MECHANIC Height - - Body Mass Index 27.46 02/23/2017 2:54 PM CDT documented in this encounter Progress Notes Kelly Deng, - 06/14/2017 4:30 PM CST IMPRESSION: 1. Otalgia of right ear 2. Acute upper respiratory infection ?? SUBJECTIVE: Right ear pain, started yesterday and really bad today. It is super annoying. Feels like sometimes radiates down right neck. No neck pain. Able to move neck without difficulty. No external ear pain, however if touches tragus will feel pressure in right ear. Noted with blowing nose or coughing, right ear would pop which is really painful. No drainage or discharge from ear. +nasal congestion, rhinorrhea for couple days. 12-2 and 12-3 sore throat, but not now. No coughing. No fevers. Treatment Ibuprofen, with questionable help. She has 5 year old daughter who is not ill. ?? PMH: Patient Active Problem List Diagnosis ??? Contraceptive use ?? PSH: Past Surgical History: Procedure Laterality Date ??? SECTION x 1. ?? Medication:Updated and Reviewed in [employer], please see medication list. ?? ALLERGY: No Known Allergies ? Social History: Social History Social History ??? [...] Yes Partners: Male control/ protection: OCP, None ?? ROS: See HPI Negative except above ?? OBJECTIVE: Pulse 70 Temp 98.7 ??F (37.1 ??C) (Oral) Wt 165 lb (81196 g) BMI 27.46 kg/m2 Estimated body mass index is 27.46 kg/(m^2) as calculated from the following: Height as of 02/23/17: 5' 5 (165.1 cm). Weight as of this encounter: 165 lb (69701 g). General: 27 y.o. female WD WN NAD. Pt is A& O X 3, Cooperative. Non septic appearing. Head: Head NC, AT Eyes: Conjunctiva clear & without erythema. No scleral icterus. Ears: External Ear without deformity. No erythema of helix, tragus on right. No erythema or tenderness to palpation at right mastoid. No pain with palpation of helix on right. EAC on left negative. EACon right with small inferior cerumen,non obstructing. TM on left pearly virk and shiny with good COL. TM on right dull virk with air/fluid levels, clear fluid. No erythema of TM. Nose: No lesions noted externally. Mild turbinate hypertrophy bilat. Mouth: Teeth are in good condition. Oral Cavity neg for lesions, ulceration, erythema, paleness. Mucous membranes moist. NO erythema of pharynx noted. Neck: Neck supple. No cervical LAD. No nuchal rigidity. Moving neck without difficulty. CV: RRR without appreciated Murmurs.Normal S1, S2. Lungs: No increase in AP diameter. Lungs CTA bilat without Crackles, Wheezes, or Rhonchi Musculoskeletal: Gait coordinated and even. Posture erect. ?? Labs, Imaging, Referrals: No orders of the defined types were placed in this encounter. ?? ASSESSMENT: Binta Mckeon is a 27 y.o. female with ICD-10-CM 1. Otalgia of right ear H92.01 2. Acute upper respiratory infection J06.9 ?? Otalgia of right ear - Likely secondary to OME and ETD. - Reviewed with patient eustachian tube dysfunction/OME [right]. - Recommend trial of Afrin nasal spray per bottle instructions for up to 3 days. Do not use for morethan 3 days as can cause rebound nasal congestion. -Then start Flonase nasal spray daily for 7-14 days. Use OTC. - Recommend OTC decongestants PRN, as tolerated. - OTC analgesics PRN, as tolerated. - Reviewed with patient signs and symptoms warranting repeat or emergent evaluation. Please contact clinic or be evaluated with new, change, worsening or persistence of symptoms. URI - URI - Viral in etiology. - Discussed typically symptoms run 7-14 day course with slow improvement noted over the course. - Recommend OTC analgesics PRN, as tolerated. - Adequate hydration and rest. - see above. - Reviewed with patient signs and symptoms warranting repeat or emergent evaluation. Please contact clinic or be evaluated with new, change, worsening or persistence of symptoms. Please note that the above medical documentation was created with voice recognition software and maycontain typographic errors. RING MECHANIC documented in this encounter Plan of Treatment Not on filedocumented as of this encounter Visit Diagnoses Diagnosis Otalgia of right ear - Primary Otalgia, unspecified Acute upper respiratory infection Acute upper respiratory infections of un specified site documented in this encounter Care Teams Slot Ambassador Relationship Specialty Start Date End Date Patricia Da Silva PA-C PCP - General 10/13/15 [address] [place] [address] documented as of this encounter
--- OUTSIDE RECORDS SUMMARY | 2022-03-24 09:54 | XMS_ITS | Encounter Summary ---
:[address] [facility] Address [address] [place] [address] Care Team Providers Name Role Phone Patricia Da Silva PA-C Primary Care Provider Encounter Details Date Type Department Care Team Description 05/16/2017 Immunization [facility] Need for prophylactic [address] [place] [address] inoculation against [phone] influenza Social History Tobacco Use Types Packs/Day [...] influenza documented in this encounter Care Teams Financial Agent Relationship Specialty Start Date End Date Patricia Da Silva PA-C PCP - General 10/13/15 [address] [place], [place] [id number] documented as of this encounter
--- OUTSIDE RECORDS SUMMARY | 2022-03-24 09:54 | XMS_ITS | Encounter Summary ---
:1990 Author Organization [employer] Address [address] [address] Care Team Providers Name Role Phone Patricia Da Silva PA-C Primary Care Provider Reason for Visit Reason Comments MEDICATION CHECK Encounter Details Date Type Department Care Team Description 07/09/2016 Office Visit [facility] Patricia Da Silva, [facility] [place] [address] [address] contraceptive pills [place], [place] (Primary Dx) [id number] [phone] Social History Tobacco Use Types Packs/Day Years [...] Sign Reading Time Taken Comments Blood Pressure 112/62 07/09/2016 2:35 PM PAINTER ASSISTANT Pulse - - Temperature - - Respiratory Rate - - Oxygen Saturation - - Inhaled Oxygen Concentration - - Weight 67.1 kg (148 lb) 07/09/2016 2:35 PM PAINTER ASSISTANT Height - - Body Mass Index - - documented in this encounter Progress Notes Patricia Da Silva PA-C - 07/09/2016 2:48 PM CST Clinic Visit SUBJECTIVE: CC: Chief Complaint Patient presents with ??? MEDICATION CHECK History of Present Illness: Pt is here today to get an OCP refill. She switched to us from [facility], she is new here. She is up to date on her pap and physical. See care everywhere Noah notes. She is healthy with no medical issues today, just wants her OCP. PMH, Allergies, Family, Social, Surgical and Medications reviewed and updated in [employer] today. Review of Systems: Review of systems reviewed and found to be negative except as noted above in HPI. OBJECTIVE: Vital Signs: BP 112/62 mmHg Wt 148 lb (67.132 kg) LMP 06/29/2016 (Exact Date) General: Pleasant in NAD. HEENT: PERRLA, EOMI. TM's and external canals clear bilaterally. Nose: normal turbinates, no drainage noted. Oropharynx clear. Neck: Supple, no lymphadenopathy or thyromegaly Lungs: Clear to auscultation b/l, no wheezes, rhonchi, rales. CV: RRR, no murmurs, rubs or gallops. Abdomen: Bowel sounds normal x 4, soft, non-tender, no HSM. Skin: Warm and dry without lesions or rashes. Extremities: No edema or varicosities b/l LE. Psych: Well dressed and groomed, normal affect. ASSESSMENT: Encounter Diagnosis Name Primary? Encounter for surveillance of contraceptive pills Yes PLAN: Binta was seen today for medication check. Diagnoses and all orders for this visit: Encounter for surveillance of contraceptive pills - Norgestimate-Ethinyl Estradiol (TRI-SPRINTEC) 0.18/0.215/0.25 MG-35 MCG tablet; Take 1 Tab by mouth daily. Pt will recheck prn and yearly for annual exams. HRK TER ASSISTANT documented in this encounter Plan of Treatment Not on filedocumented as of this encounter Visit Diagnoses Diagnosis Encounter for surveillance of contracept hosea pills - Primary Surveillance of previously prescribed co ntraceptive pill documented in this encounter Care Teams Life Management Teacher Relationship Specialty Start Date End Date Patricia Da Silva PA-C PCP - General 10/13/15 [address] [place] [address] documented as of this encounter
--- OUTSIDE RECORDS SUMMARY | 2022-03-24 09:54 | XMS_ITS | Encounter Summary ---
:1990 Author Organization [facility] Address [address] [place] [address] Care Team Providers Name Role Phone Unassigned, Provider Primary Care Provider Unavailable Encounter Details Date Type Department Care Team Description 06/18/2015 Immunization [facility] Need for influenza [id number] [address] vaccination (Primary Dx) [place] [address] Social History Tobacco Use Types Packs/Day Years Used Date Smoking Tobacco: Never Assessed Sex Assigned at Date Recorded Not on file documented as of this encounter Plan of Treatment Not on filedocumented as of this encounter Visit Diagnoses Diagnosis Need for influenza vaccination - Primary Need for prophylactic vaccination and in oculation against influenza documented in this encounter Care Teams Squad Boss Relationship Specialty Start Date End Date Unassigned, Provider PCP - General 05/18/00 10/12/[address] [place] [address] documented as of this encounter
--- OUTSIDE RECORDS SUMMARY | 2022-03-24 09:54 | XMS_ITS | Encounter Summary ---
:1990 Author Organization [employer] Address [address] [place] [address] Care Team Providers Name Role Phone Patricia Da Silva PA-C Primary Care Provider Reason for Visit Reason Comments Ear Pain Encounter Details Date Type Department Care Team Description 10/11/2018 Office Visit [facility] Vikki Phan [facility], left [address] [facility] SAVANAH Olive[facility] (Primary Dx) [place] [address] [address] [facility] [phone] [place], [place] [address] Social History Tobacco Use Types Packs/Day Years Used Date Smoking Tobacco: Former Cigarettes Quit : 07/09/2012 Smokeless Tobacco: Never Alcohol Use Standard Drinks/Week Comments Yes 2 (1 standard drink = 0.6 oz pure alcoho l) Sex Assigned at Date Recorded Not on file documented as of this encounter Progress Notes Vikki Martin AU.D. - 10/11/2018 1:00 PM CDT Subjective: Binta Mckeon, 28 y.o., was seen for an audiological evaluation upon order from Lenny Hobbs PA-C. She has not been seen previously for a hearing evaluation at [facility]. The patient reports that she had a sinus infection 2 months ago, and since then she has had pain in the left ear. The pain feels deep in the ear and seems to come and go. It occasionally feels like a pressure sensation. She has ringing tinnitus in the left ear initially, but this has improved. She reports that she has been on prednisone and amoxicillin, but her discomfort persists. The patient denies drainage, vertigo, previous ear surgery, family history of hearing loss, and history of noise exposure. Please see Lenny Hobbs PA-C's note from today's date for further case history. Objective: Otoscopy revealed clear ear canals, bilaterally. Patient was evaluated under insert earphones with good reliability. Pure tone audiometric testing revealed hearing within normal limits, bilaterally. Speech radiology receptionist thresholds were obtained at 5 dBHL for the right ear and 10 dBHL for the left ear. Word recognition at 45 dBHL was 100% for the right ear and at 50 dBHL was 100% for the left ear. Tympanometry revealed normal ear canal volume, pressure and static admittance, bilaterally. Assessment: Hearing is within normal limits, bilaterally. Tympanometry was within normal limits, bilaterally. Speech radiology receptionist thresholds were in good agreement with the pure tone thresholds. Word recognition for both ears was considered to be excellent at a conversational level. Plan: These results were discussed with the patient. Please see Lenny Hobbs PA-C's note from today's date for further recommendations. Recheck hearing as needed. It is recommended that patient use hearing protection devices whenever in noisy environments. documented in this encounter Plan of Treatment Not on filedocumented as of this encounter Visit Diagnoses Diagnosis Ear pain, left - Primary documented in this encounter Care Teams Fireproof Door Maker Relationship Specialty Start Date End Date Patricia Da Silva PA-C PCP - General 10/13/15 [address] [place] [address] documented as of this encounter
--- OUTSIDE RECORDS SUMMARY | 2022-03-24 09:54 | XMS_ITS | Encounter Summary ---
:1990 Author Organization [facility] Address [address] [place] [address] Care Team Providers Name Role Phone Patricia Da Silva PA-C Primary Care Provider Encounter Details Date Type Department Care Team Description 12/28/2017 Lab Visit [facility] Annual physical exam; [address] Screening for HIV (human imm unodeficiency virus); [place] [address] FH: malignant neoplasm of th yroid [phone] Social History Tobacco Use Types Packs/Day Years [...] Name Priority Date/Time Associated Diagnosis Comme nts HIV 1/2 AG/AB 4TH Routine 12/28/2017 4:27 Screening for HIV (h uman Results for this GEN PM CDT immunodeficiency virus) proc edure are in the results section. COMPLETE BLOOD Routine 12/28/2017 4:27 Annual physical exam Re sults for this COUNT-NO DIFF PM CDT procedure are in the results section. TSH, SENSITIVE Routine 12/28/2017 4:27 FH: malignant neoplasm Results for this (WITH REFLEX) PM CDT of thyroid procedure are in the results section. documented in this encounter Results TSH with Free T4 (if TSH Abnormal) (12/28/2017 4:27 PM CDT) P athologist Signature Thyroid 1.97 0.30 - PN SOFT Stimulating 4.50 Hormone uIU/mL Specimen Anatomical Collection Method Collection Time Receive d Time (Source) Location / / Volume Laterality 12/28/2017 4:27 PM 8 9:20 CDT PM CDT Narrative PN SOFT - 12/28/2017 9:59 PM CDT Performed at [address] [address] CLIA number [id number] Patricia Da Silva PA-C LAB_1 Performing Organization Address [facility] Phon e Number PN SOFT [address] [place] [address] HIV 1/2 Ag/Ab 4th Generation (12/28/2017 4:27 PM CDT) [facility] Method Time Signature HIV-1 p24 Ag Nonreactive Nonreactive PN SOFT and HIV-1/HIV-2 Ab Specimen Anatomical Collection Method Collection Time Receive d Time (Source) Location / / Volume Laterality 12/28/2017 4:27 PM 8 9:20 CDT PM CDT Narrative PN SOFT - 12/28/2017 10:11 PM CDT Performed at [address] [address] CLIA number [id number] Patricia Da Silva PA-C LAB_1 Performing Organization Address [facility] Phon e Number PN SOFT [address] [place] [address] Complete Blood Count-No Diff (12/28/2017 4:27 PM CDT) P athologist Signature White Blood Cell 9.4 3.8 [...] - 12/28/2017 4:29 PM CDT Performed at [facility], [address] [place] [address] CLIA number [id number] Patricia Da Silva PA-C LAB_1 Performing Organization Address City/State/ZIP Code Phon e Number PN SOFT [address] [place] [address] documented in this encounter Visit Diagnoses Diagnosis Annual physical exam Routine general medical examination at a health care facility Screening for HIV (human immunodeficienc y virus) Special screening examination for other specified viral diseases FH: malignant neoplasm of thyroid Family history of other specified malign ant neoplasm documented in this encounter Care Teams Senior Systems Administrator Relationship Specialty Start Date End Date Patricia Da Silva PA-C PCP - General 10/13/15 [address] [place] [address] documented as of this encounter
--- OUTSIDE RECORDS SUMMARY | 2022-03-24 09:54 | XMS_ITS | Encounter Summary ---
:1990 Author Organization [facility] Address [address] [place] [address] Care Team Providers Name Role Phone Patricia Da Silva PA-C Primary Care Provider Reason for Visit Reason Comments Pharmacy Encounter Details Date Type Department Care Team Description 06/28/2017 Telephone [facility] Patricia Hernandez PA-C Pharmacy [address] [place] [id number] [place] [address] [phone] (Wo rk) Social History Tobacco Use Types [...] documented as of this encounter Nursing Notes Erin Malone LPN - 06/28/2017 2:25 PM CST Pharmacist calling, 2 prescriptions for Augmentin were sent by 2 different clinicians. He is wondering which one is the correct prescription. Advised the one prescribed by Dr. Deng. He agreed. RESSURIST America Davis - 06/28/2017 2:10 PM CST [facility] calling requesting to speak to nurse regarding Rx prescrbed today. Regarding augmentin.Transfer RESSURIST documented in this encounter Plan of Treatment Not on filedocumented as of this encounter Visit Diagnoses Not on filedocumented in this encounter Care Teams Oil And Gas Recruiter Relationship Specialty Start Date End Date Patricia Da Silva PA-C PCP - General 10/13/15 [address] [place] [address] documented as of this encounter
--- OUTSIDE RECORDS SUMMARY | 2022-03-24 09:54 | XMS_ITS | Encounter Summary ---
:1990 Author Organization [facility] [employer] Address [address] [place] [address] Care Team Providers Name Role Phone Patricia Da Silva PA-C Primary Care Provider Reason for Visit Reason Comments CONSULT ETD left ear Consult/Transfer Care (Routine) - Closed Specialty Diagnoses / Procedures Referred By Contact Refer red To Contact Diagnoses Dysfunction of left [place]ustachian [place] [address] [place] [address] Referral ID Status Reason Start Date Expiration Date Visits Requ ested Visits Authorized [id number] Closed 10/05/2018 01/04/2020 1 1 Encounter Details Date Type Department Care Team Description 10/11/2018 Initial Consult [place] [facility], Lenny Hobbs Left ea r pain (Primary Dx); Nose, and Throat PATSY Nielson Temporomandibular joint disorder; [address] Chronic rhini [facility] [address] [place] [address] [phone] Social History Tobacco Use Types Packs/Day Years Used Date Smoking Tobacco: Former Cigarettes Quit : 07/09/2012 Smokeless Tobacco: Never Alcohol Use Standard Drinks/Week Comments Yes 2 (1 standard drink = 0.6 oz pure alcoho l) Sex Assigned at Date Recorded Not on file documented as of this encounter Patient Instructions Patient InstructionsLenny Hobbs PA-C - 10/11/2018 1:30 PM CDT [facility] Locations: Nurse: Silvana [phone] [facility] [address] [facility] - [address] [facility] [address] Appointment [phone] [place] [address] [facility] [address] TEMPOROMANDIBULAR JOINT (TMJ) AND EAR PAIN Your ear pain may be due to Temporomandibular Joint (TMJ) dysfunction (your jaw joint). Your jaw joints are just in front of your ear. In fact, the back wall of your jaw joint is the frontwall of your ear canal. If you put your finger in your ear, and open and close your jaw, you will feel the jaw joint moving. With that in mind, it is not unusual to experience ear pain if the jaw jointis acting up. Both jaw joints need to work in perfect unison with ear other. If one joint is having some muscle spasm, it throws the other side out of alignment which can lead to pain. Things that can lead to this jaw joint imbalance are not using the joints equally. For example, if you only chew food on one side of your mouth. This commonly occurs if you have a missing tooth or teeth, have a sensitive tooth or have poorly fitting dentures. This can also occur following dental procedures where your mouth is opened for a prolonged period of time. Here are some suggestions to try to improve the discomfort: PLAN A: - Soft diet. Nothing crunchy or course. No tough meat, nuts or biting something off like a carrot. - No gum chewing. - No stretching the mouth wide, like biting into a big apple or sandwich - Making sure you are chewing your food equally on both sides of your mouth. Literally, 5 chews on one side, move the food over to the other side, 5 chews, move the food back over etc. Continue until you swallow the food. THIS IS PROBABLY THE BIGGEST THING YOU CAN DO. PLAN B: - Warm compresses on BOTH jaw joints. - Take an anti-inflammatory medication such as naproxyn or ibuprofen (Aleve or Advil/Motrin). Sometimes you may have medication prescribed. Need to take this on a regular schedule to help control inflammation. It will help with discomfort, but it is mainly to control the inflammation in the joint. PLAN C: - If you find that you are clenching or grinding your teeth (especially at night), consider getting a ???maritime guard?? . This is a mouth guard you wear at night. These can be purchased at a pharmacy. You may be clenching or grinding if you wake up in the morning feeling like you have been chewing steak all night, or if the pain is worse when you wake in the morning. In general, doing the above suggestions should improve your discomfort within 2 weeks. If no trend toward improvement within 2 weeks, contact me. But if you have been doing the above suggestions and have noticed a lot of improvement, on the day that you are no longer having pain, continue the suggestions for at least 1 more day. You can then stop the medications and eat ???normally?? . If the pain returns, resume the above suggestions immediately. The quicker you try to settle down the symptoms, the shorter the period of time you need to work on it. I let my patients know that I cannot ???cure?? this problem. We can only settle it down. I have found though, that the more it is settled down, and the quicker we can settle it down, the less you willhave problems with it. If there is no improvement at all, you may need to consider seeing Physical Therapy or a TMJ specialist. documented in this encounter Progress Notes Lenny Hobbs PA-C - 10/11/2018 1:30 PM CDT SUBJECTIVE: Binta Mckeon is a 28 y.o. female that presents for evaluation of left-sided otalgia. This is been going on intermittently for the last 2 months. She gets some intermittent sharp pain. She will also getting some headaches. She was treated for sinusitis. She describes intense pain in her left periorbital area. She was treated through [facility]. The nasal symptoms seem to have resolved. She does have some chronic nasal symptoms. She takes Flonase p.r.n. Patient Active Problem List Diagnosis ??? Contraceptive use ??? Elevated BP without diagnosis of hypertension ??? FH: malignant neoplasm of thyroid Outpatient Medications Prior to Visit Medication Sig Dispense Refill ??? amLODIPine (NORVASC) 5 MG tablet Take 1 tab PO daily for 2 weeks, if BP still high increase to 2tablets daily. 90 Tablet 3 ??? amoxicillin (AMOXIL) 500 MG capsule Take 500 mg by mouth. ??? fluticasone (FLONASE) 50 MCG/ACT nasal solution 11 ??? Norgestimate-Ethinyl Estradiol (ORTHO TRI-CYCLEN LO) 0.18/0.215/0.25 MG-25 MCG tablet Take 1 Tabby mouth daily. 84 Tab 3 No facility-administered medications prior to visit. No Known Allergies OBJECTIVE: GENERAL APPEARANCE: Pleasant, cooperative, no distress. HEAD AND FACE: Facies symmetric, no obvious lesions. CRANIAL NERVES: Grossly intact and symmetric. EARS: External ears normal. Normal, patent ear canals bilaterally. TM and middle spaces normal. NOSE: External pyramid midline. Septum midline. Mucosa normal. No purulence, polyps, or crusts. ORAL CAVITY/OROPHARYNX: No mucosal lesions, masses, or pharyngeal asymmetry. She does have a couple of teeth that are in poor repair. Otherwise her occlusion is good. NECK: No cervical adenopathy. No palpable thyroid or salivary gland masses. THYROID: No significant thyroid abnormality by palpation. PAROTIDS: Normal to palpation. No mass, lesions or evidence of obstruction. TMJs: On palpation of the temporomandibular joints, there is pain/tenderness noted in (the) left joint(s). There is equal excursion. Crepitus noted in (the) neither joint(s). AUDIOGRAM: Audiogram shows normal, symmetric hearing. Tympanograms are normal. IMPRESSION: Otalgia, left Temporomandibular Joint Dysfunction Chronic Rhinitis PLAN: Advised of the findings.Soft diet. No gum chewing, tough meat, nuts or raw vegetables until symptomsresolve. Needs to chew equally on both sides of the mouth. If this does not improve the symptoms, advised regular doses of NSAIDs (ibuprofen or naproxyn). Warm compresses bilaterally. If noticing pain at night or upon waking in the morning, needs to purchase a maritime guard. On the day they notice that they are not having pain, they should continue these precautions for an additional 24 hours and then can discontinue. If the pain returns, they should immediately institute these steps. If no trend toward improvement in 2 weeks, they should contact us. With regards to her nasal complaints, I advised she use the Flonase every day. 2 sprays each nostrildaily. 3-4 weeks is a fair trial. If she gets more sinus issues she will return for further evaluation of her sinuses. Dictation was performed using voice recognition software. There may be errors in the dictation secondary to voice recognition anomalies. documented in this encounter Plan of Treatment Scheduled Referrals Name Type Priority Associated Diagnoses Order S chedule Otolaryngology Consult Referral Routine Dysfunction of lef t Ordered: 10/05/2018 Adult/Peds eustachian tube documented as of this encounter Visit Diagnoses Diagnosis Left ear pain - Primary Otalgia, unspecified Temporomandibular joint disorder Temporomandibular joint disorders, unspe cified Chronic rhinitis documented in this encounter Care Teams Tactical Deception Plans Officer Relationship Specialty Start Date End Date Patricia Da Silva PA-C PCP - General 10/13/15 [address] [place] [address] documented as of this encounter
--- OUTSIDE RECORDS SUMMARY | 2022-03-24 09:54 | XMS_ITS | Encounter Summary ---
:1990 Author Organization [email or web address] Address [address] [place] [address] Care Team Providers Name Role Phone Patricia Da Silva PA-C Primary Care Provider Reason for Visit Reason Comments SINUS PAIN/PRESSURE Encounter Details Date Type Department Care Team Description 06/27/2017 E-Visit [facility] Kelly Deng, DO Dx: Sinusitis, Medicine [address] [facility] unspecified chronicity, [address] unspecified location [place], [place] (Primary Dx ) [id number] [phone] (Wo rk) Social History Tobacco Use Types [...] as of this encounter Nursing Notes Erin Baca RN - 06/28/2017 11:45 AM CST E-visit request. Pt has appointment at 1:[address] Deng. RESSOR [employer] documented in this encounter Plan of Treatment Not on filedocumented as of this encounter Visit Diagnoses Diagnosis Sinusitis, unspecified chronicity, unspe cified location - Primary documented in this encounter Care Teams Mortgage Loan Processor Relationship Specialty Start Date End Date Patricia Da Silva PA-C PCP - General 10/13/15 [address] [place] [address] documented as of this encounter
--- OUTSIDE RECORDS SUMMARY | 2022-03-24 09:54 | XMS_ITS | Encounter Summary ---
:1990 Author Organization [employer] Address [address] [place] [address] Care Team Providers Name Role Phone Patricia Da Silva PA-C Primary Care Provider Reason for Visit Reason Comments Ear Pain left Encounter Details Date Type Department Care Team Description 09/14/2018 Office Visit [facility] Luz Talbot, Roseanne ction of left eustachian tube (Primary Dx); Medicine DO Sinusitis, unspecified chronicity, unspe cified location [address] [address] [place] [address] [phone] Social History Tobacco Use Types Packs/Day Years Used Date Smoking Tobacco: Former Cigarettes Quit : 07/09/2012 Smokeless Tobacco: Never Alcohol Use Standard Drinks/Week Comments Yes 2 (1 standard drink = 0.6 oz pure alcoho l) Sex Assigned at Date Recorded Not on file documented as of this encounter Last Filed Vital Signs Vital Sign Reading Time Taken Comments Blood Pressure 156/108 09/14/2018 12:55 PM CNC MECHANIC Pulse 87 09/14/2018 12:55 PM CNC MECHANIC Temperature 37 ??C (98.6 ??F) 09/14/2018 12:52 PM CNC MECHANIC Respiratory Rate 16 09/14/2018 12:52 PM CNC MECHANIC Oxygen Saturation - - Inhaled Oxygen Concentration - - Weight 80.3 kg (177 lb) 09/14/2018 12:52 PM CNC MECHANIC Height 160 cm (5' 3) 09/14/2018 12:52 PM CNC MECHANIC Body Mass Index 31.35 09/14/2018 12:52 PM CNC MECHANIC documented in this encounter Patient Instructions Patient InstructionsAddie BabbEAN - 09/14/2018 1:00 PM CNC MECHANIC Images from the original note were not included. Healthy Weight Matters Understanding body mass index Your body mass index, or BMI, is a good way to check if your weight is healthy for your height. YourBMI helps us find out if your weight is putting your health at risk. If you are overweight or have obesity, your risk increases for developing health problems, such as type 2 diabetes, heart disease, high blood pressure and stroke. Your BMI measurement alone cannot predict your health risk. But if you know your BMI is high, you can take steps to set healthy goals and improve your overall well-being. Check your BMI using the tableon the back. Regardless of your BMI, we recommend making the following habits part of your daily life: ? Eat 5 servings of fruits and vegetables a day. ? Pay attention to portion sizes. ? Replace sugar-sweetened beverages with water or other calorie-free beverages. What can I do to improve my BMI? Losing weight is an important way to reduce your BMI and improve your overall health and well- being. Start small. Aim to lose a few pounds to begin rather than worry about your ideal weight. Here are some tips: ? Be physically active. Do activities that you enjoy, give you energy and are safe for you to do. Gradually build up the intensity (how hard your body is working) of activity. Long-term, aim for 30 minutes or more of activity most days of the week. Remember to check with your doctor before startingany physical activity program. ? Eat real (not processed) food. Eat mostly vegetables, fruit, whole grains and lean proteins. That way, you--not food manufacturers--control the ingredients that go into your meals. ? Aim for 5 servings of fruits and vegetables a day. Choose a variety of vegetables with different colors. Have fresh fruit for dessert. Limit deep-fried vegetables, such as tajik fries. ? Choose lean protein, such as chicken or fish. Try non-meat sources of protein such as beans, soy and other legumes. ? Choose whole grains. Whole grain foods, such as whole-wheat bread, brown rice, barley, quinoa and oatmeal, contain the entire grain kernel and are better for your health. Limit refined grains, such as white bread and rice. ? Satisfy hunger with unsaturated fat. Fat helps you feel satisfied. Choose unsaturated fats, such as canola or olive oils, nuts and seeds, oil-based dressings and avocados. Limit saturated fats, whichare found in animal products and some plant oils, such as coconut and palm oils. ? Pay attention to portion sizes. Use smaller plates, bowls and glasses. Portion out foods before you eat. ? Drink water or unsweetened beverages. Avoid soda, sweetened coffees and teas, energy drinks and sports drinks, which are full of added sugar that your body does not need. Water is always the best option. ? Eat mindfully. Take time to fully enjoy your food and pay attention to what you are eating. Make meals last 15 to 30 minutes. This gives your body a chance to become satisfied and tell your brain to stop eating. Pay attention to what you are eating, rather than doing other activities such as watching TV or driving. This helps you pay attention to your body???s signals of hunger and fullness. ? Share meals when eating at restaurants, or put half of the entr??e in a to-go container before youstart eating. Body mass index (BMI) table First, find your height in the left-hand column. Then, follow the row over until you find your weight. Your BMI is the number where the row and column meet. Nutrition Services One-on-one visits with a registered dietitian are available at various clinic locations to help you develop a personalized plan for managing your weight. We also offer classes led by dietitians on a variety of topics. To schedule an appointment, find the clinic that works best for you. ? For [facility], call [phone]. ? For [facility], call [phone]. ? For [facility], call [phone]. ? For [facility], call [phone]. ? For [facility], call [phone]. (11/2017) ??Critical access hospital MECHANIC documented in this encounter Progress Notes Luz Talbot DO - 09/14/2018 1:00 PM CST Subjective: Binta Mckeon is a 28 y.o. female who presents for possible ear infection. Symptoms include tugging at left ear and plugged sensation in left ear. Onset of symptoms was 5 days ago, unchanged since that time. Throbbing sensation in the ear. Sinus infection last week, treated with flonase, resolved but left ear issues since then. No historyof ear issues. Hearing is good. No pain. Review of Systems Pertinent items are noted in HPI. Objective: BP (!) 156/108 (BP Location: Left Arm, BP Cuff Size: Adult Large) Pulse 87 Temp 98.6 ??F (37 ??C) (Oral) Resp 16 Ht 5' 3 (1.6 m) Wt 177 lb (80.3 kg) BMI 31.35 kg/m?? General: alert, cooperative, no distress, appears stated age Right Ear: normal appearance, normal TMs bilaterally Left Ear: normal appearance, normal TMs bilaterally, normal canals bilaterally Mouth: lips, mucosa, and tongue normal; teeth and gums normal Neck: supple, symmetrical, trachea midline and no adenopathy. Assessment: Binta was seen today for ear pain. Diagnoses and all orders for this visit: Dysfunction of left eustachian tube Sinusitis, unspecified chronicity, unspecified location Plan: Treatment: flonase, sudafed prn. Massage to left ear area (Gallbreath technique) OTC Sudafed, fluids, rest, avoid carbonated/alcoholic or caffeinated beverages. Follow up in prn days if not improving. Recheck elevated BP. MECHANIC documented in this encounter Plan of Treatment Not on filedocumented as of this encounter Visit Diagnoses Diagnosis Dysfunction of left eustachian tube - Pr imary Dysfunction of Eustachian tube Sinusitis, unspecified chronicity, unspe cified location documented in this encounter Care Teams Security Manager Relationship Specialty Start Date End Date Patricia Da Silva PA-C PCP - General 10/13/15 [address] [place] [address] documented as of this encounter
--- OUTSIDE RECORDS SUMMARY | 2022-03-24 09:54 | XMS_ITS | Encounter Summary ---
:1990 Author Organization [employer] Address [address] [place] [address] Care Team Providers Name Role Phone Patricia Da Silva PA-C Primary Care Provider Reason for Visit Reason Comments Refill TRI-SPRINTEC 0.18/0.215/0.25 MG-35 MCG tablet [Pharmacy Med Name: Tri-Sprintec Oral Tablet 0.18/0.215/0.25 MG-35 MCG] Encounter Details Date Type Department Care Team Description 12/20/2017 Refill [facility] Patricia Da Silva, Refill (TRI-SPRINTEC Medicine PATSY 0.18/0.215/0.25 MG-35 [address] MCG tablet [Pharmacy Med [place], [place] [address] Name: Tri-Sprintec Oral [id number] Tablet 0.18/0.215/0.25 [phone] MG-35 MCG ]) Social History Tobacco Use Types [...] documented as of this encounter Nursing Notes Addie Babb LPN - 12/23/2017 11:24 AM CDT Letter mailed with Patricia's message, advised patient to schedule annual visit soon so she can refill her control medication. Addie Babb LPN - 12/22/2017 2:57 PM CDT No answer and unable to leave a message, please try again later today/. Patricia Da Silva PA-C - 12/22/2017 12:30 PM CDT Please notify pt that she still hasn't made an appointment for annual exam and pap and she is very overdue so I'm not refilling her control until she makes that appointment. Thanks, Patricia Tiara Cisneros RN - 12/22/2017 7:57 AM CDT Further Assistance Needed on Refill from Clinician RN reviewed. Patient overdue for Qualifying visit. A qualifying visit was not found within the last 2 years. Last qualifying visit: 07/09/16 with Patricia Da Silva Next scheduled visit: None Review pended order for accuracy and sign if appropriate, Document if appointment is needed for further refills and Route to [place] to schedule appointment Requested Prescriptions Pending Prescriptions Disp Refills ??? norgestimate-ethinyl estradiol (TRI-SPRINTEC) 0.18/0.215/0.25 MG-35 MCG tablet [Pharmacy Med Name: Tri-Sprintec Oral Tablet 0.18/0.215/0.25 MG-35 MCG] 84 Tab 0 Sig: Take 1 Tab by mouth daily. Interface, Out [employer] Query - 12/20/2017 10:44 AM CDT TRI-SPRINTEC 0.18/0.215/0.25 MG-35 MCG tablet [Pharmacy Med Name: Tri-Sprintec Oral Tablet 0.18/0.215/0.25 MG-35 MCG] Medication started: 04/11/2016 Last ordered by PATRICIA DA SILVA R: 09/05/2017 (106 days ago) QTY: 84, Refills: 0, Sig: take one tabletby mouth every day (unchanged) -> A qualifying visit was not found within the last 2 years. Last qualifying visit: None (A recent visit (in Family Practice) was found) Next scheduled visit: None SBP: 143 mm Hg on 06/28/2017 DBP: 106 mm Hg on 06/28/2017 Powered by [employer], Reference: [id number], 12/20/2017 10:44:49 AM CDT, Pool: JUANA REFILL ([id number]) documented in this encounter Plan of Treatment Not on filedocumented as of this encounter Visit Diagnoses Diagnosis Encounter for surveillance of contracept hosea pills Surveillance of previously prescribed co ntraceptive pill documented in this encounter Care Teams Pest Locator Relationship Specialty Start Date End Date Patricia Da Silva PA-C PCP - General 10/13/15 [address] [place] [address] documented as of this encounter
--- OUTSIDE RECORDS SUMMARY | 2022-03-24 09:54 | XMS_ITS | Encounter Summary ---
:1990 Author Organization [email or web address] Address [address] [place] [address] Care Team Providers Name Role Phone Patricia Da Silva PA-C Primary Care Provider Reason for Visit Reason Comments Refill TRI-SPRINTEC 0.18/0.215/0.25 MG-35 MCG tablet [Pharmacy Med Name: Tri-Sprintec Oral Tablet 0.18/0.215/0.25 MG-35 MCG] Encounter Details Date Type Department Care Team Description 09/03/2017 Refill [facility] Patricia Da Silva, Refill (TRI-SPRINTEC Medicine PATSY 0.18/0.215/0.25 MG-35 [address] MCG tablet [Pharmacy Med [place], [place] [address] Name: Tri-Sprintec Oral [id number] Tablet 0.18/0.215/0.25 [phone] MG-35 MCG ]) Social History Tobacco Use [...] documented as of this encounter Nursing Notes Viola Waterman - 09/06/2017 5:53 PM CST MYCHART Letter Sent ANT LEADER Elva Blair RN - 09/05/2017 5:46 PM CST OFFICE APPOINTMENT NEEDED Please notify patient to schedule an appointment within 30 days. Requested Prescriptions Pending Prescriptions Disp Refills TRI-SPRINTEC 0.18/0.215/0.25 MG-35 MCG tablet [Pharmacy Med Name: Tri-Sprintec Oral Tablet 0.18/0.215/0.25 MG-35 MCG] 84 Tab 0 Sig: TAKE ONE TABLET BY MOUTH EVERY DAY ANT LEADER Interface, Randi Surescripts Prov Query - 09/03/2017 11:37 AM CST TRI-SPRINTEC 0.18/0.215/0.25 MG-35 MCG tablet [Pharmacy Med Name: Tri-Sprintec Oral Tablet 0.18/0.215/0.25 MG-35 MCG] Medication started: 04/11/2016 Last ordered by PATRICIA DA SILVA R: 06/10/2017 (85 days ago) QTY: 84, Refills: 0, Sig: take one tablet by mouth every day (unchanged) -> A qualifying visit was not found within the last 2 years. Last qualifying visit: None (A recent visit (in Family Practice) was found) Next scheduled visit: None SBP: 143 mm Hg on 06/28/2017 DBP: 106 mm Hg on 06/28/2017 Powered by [employer], Reference: [id number], 09/03/2017 11:37:07 AM MIGRANT LEADER, Yan: JUANA REFILL ([id number]) ANT LEADER documented in this encounter Plan of Treatment Not on filedocumented as of this encounter Visit Diagnoses Diagnosis Encounter for surveillance of contracept hosea pills Surveillance of previously prescribed co ntraceptive pill documented in this encounter Care Teams Service Center Appraiser Relationship Specialty Start Date End Date Patricia Da Silva PA-C PCP - General 10/13/15 [address] [place] [address] documented as of this encounter
--- OUTSIDE RECORDS SUMMARY | 2022-03-24 09:54 | XMS_ITS | Encounter Summary ---
:1990 Author Organization [facility] Address [address] [place] [address] Care Team Providers Name Role Phone Patricia Da Silva PA-C Primary Care Provider Reason for Referral Consult/Transfer Care (Routine) - Closed Specialty Diagnoses / Procedures Referred By Contact Refer red To Contact Diagnoses Dysfunction of [place] [address] [place] [address] Referral ID Status Reason Start Date Expiration Date Visits Requ ested Visits Authorized [id number] Closed 10/05/2018 01/04/2020 1 1 Scheduling Instructions Your provider has recommended an appoint ment with [facility] (ENT) - Head & Neck Surgery. You may call to schedule your appointment. If you do not schedule an appointment within next 1 to 3 business days, we will call you to help arrange your appointment. We sug gest you call your health insurance company about your coverage and benefits for thi s appointment. Reason for Visit Reason Comments Follow-up Urgent Care 09/26 Encounter Details Date Type Department Care Team Description 10/05/2018 Office Visit Dejuan Langford, Mindyfunc tion of left Medicine eustachian tube [address] [address]. [address] [facility] (Primary Dx) [place] [address] [id number] Social History Tobacco Use Types Packs/Day Years Used Date Smoking Tobacco: Former Cigarettes Quit : 07/09/2012 Smokeless Tobacco: Never Alcohol Use Standard Drinks/Week Comments Yes 2 (1 standard drink = 0.6 oz pure alcoho l) Sex Assigned at Date Recorded Not on file documented as of this encounter Last Filed Vital Signs Vital Sign Reading Time Taken Comments Blood Pressure 160/114 10/05/2018 9:39 AM CDT Pulse 94 10/05/2018 9:39 AM CDT Temperature - - Respiratory Rate - - Oxygen Saturation - - Inhaled Oxygen Concentration - - Weight 81.6 kg (179 lb 14.4 oz) 10/05/2018 9:25 AM CDT Height 160 cm (5' 3) 10/05/2018 9:25 AM CDT Body Mass Index 31.87 10/05/2018 9:25 AM CDT documented in this encounter Progress Notes Dejuan Kearns MD - 10/05/2018 9:20 AM CDT Subjective Binta Mckeon is a 28 y.o. female who presents for follow up of on going left ear pain and fullness. On going for the past 1 month. Tried decongestants, Flonase, steroids, abx and time. Not better yet. Also, BP noted to be high in UC and started on BP medications. Still high. Taking dialy. No hx of BPproblems in the past. Was thought to be from NSAID use and decong, but she is not on them now. Outpatient Medications Prior to Visit Medication Sig ??? amoxicillin (AMOXIL) 500 MG capsule Take 500 mg by mouth. ??? fluticasone (FLONASE) 50 MCG/ACT nasal solution ??? Norgestimate-Ethinyl Estradiol (ORTHO TRI-CYCLEN LO) 0.18/0.215/0.25 MG-25 MCG tablet Take 1 Tabby mouth daily. ??? [DISCONTINUED] metoprolol succinate (TOPROL XL) 50 MG 24 hour release tablet No facility-administered medications prior to visit. No past medical history on file. Review of Systems Pertinent items are noted in HPI. Objective BP (!) 160/114 (BP Location: Left Arm) Pulse 94 Ht 5' 3 (1.6 m) Wt 179 lb 14.4 oz (81.6 kg) BMI 31.87 kg/m?? ENT: TM clear, throat clear, neck without adenopathy. CV: RRR Lungs; Clear Skin; no rash Eye; No redness or injection. Assessment/Plan ICD-10-CM 1. Dysfunction of left eustachian tube H69.82 Otolaryngology Consult Adult/Peds Will set up with ENT for on going ear pain. Will stop metoprolol and start norvasc for BP. Check at home, follow up in 1 month for recheck and fasting labs. Dejuan Kearns MD 9:53 AM 10/05/2018 documented in this encounter Plan of Treatment Scheduled Referrals Name Type Priority Associated Diagnoses Order S chedule Otolaryngology Consult Referral Routine Dysfunction of lef t Ordered: 10/05/2018 Adult/Peds eustachian tube documented as of this encounter Visit Diagnoses Diagnosis Dysfunction of left eustachian tube - Pr imary Dysfunction of Eustachian tube documented in this encounter Care Teams Dairy Science Teacher Relationship Specialty Start Date End Date Patricia Da Silva PA-C PCP - General 10/13/15 [address] [place] [address] documented as of this encounter
--- OUTSIDE RECORDS SUMMARY | 2022-03-24 09:54 | XMS_ITS | Encounter Summary ---
:1990 Author Organization [employer] Address [address] [place] [address] Care Team Providers Name Role Phone Patricia Da Silva PA-C Primary Care Provider Reason for Visit Reason Comments Refill TRI-SPRINTEC 0.18/0.215/0.25 MG-35 MCG tablet [Pharmacy Med Name: Tri-Sprintec Oral Tablet 0.18/0.215/0.25 MG-35 MCG] Encounter Details Date Type Department Care Team Description 06/09/2017 Refill [facility] Patricia Da Silva, Refill (TRI-SPRINTEC Medicine PATSY 0.18/0.215/0.25 MG-35 [address] [address] [place] MCG tablet [Pharmacy Med [place], [place] [address] Name: Tri-Sprintec Oral [id number] Tablet 0.18/0.215/0.25 [phone] MG-35 MCG ]) Social History Tobacco Use [...] of this encounter Nursing Notes Interface, Out [employer] Prov Query - 06/09/2017 10:28 AM CST TRI-SPRINTEC 0.18/0.215/0.25 MG-35 MCG tablet [Pharmacy Med Name: Tri-Sprintec Oral Tablet 0.18/0.215/0.25 MG-35 MCG] Medication started: 04/11/2016 Last ordered by PATRICIA DA SILVA R: 07/09/2016 (335 days ago) QTY: 84, Refills: 3, Sig: take 1 tab by mouth daily. (changed but equivalent) -> A qualifying visit was not found within the last 2 years. Last qualifying visit: None (A recent visit (in Family Practice) was found) Next scheduled visit: None SBP: 132 mm Hg on 02/23/2017 DBP: 70 mm Hg on 02/23/2017 Powered by [employer], Reference: [id number], 06/09/2017 10:28:55 AM SUPERVISOR PLATE FORMINGYan: JUANA REFILL ([id number]) RVISOR PLATE FORMING documented in this encounter Plan of Treatment Not on filedocumented as of this encounter Visit Diagnoses Diagnosis Encounter for surveillance of contracept hosea pills Surveillance of previously prescribed co ntraceptive pill documented in this encounter Care Teams Flexo Operator Relationship Specialty Start Date End Date Patricia Da Silva PAOmiC PCP - General 10/13/15 [address] [place] [address] documented as of this encounter
[2022-03-25 19:15] LABS: Rapid Plasma Reagin (RPR) Non Reactive (Non Reactive)
== END 2022-03-24 10:22 | disposition home or self-care (01) ==
PROVIDERS: Visit Provider Obstetrics & Gynecology
DX: Z34.90 Encounter for supervision of normal pregnancy, unspecified, unspecified trimester (principal)
CPT/HCPCS: 86592

== ENCOUNTER 2022-05-24 10:38 | Outpatient (CLI) | payer BC, SELFPAY ==
--- OUTSIDE RECORDS SUMMARY | 2022-05-24 10:40 | XMS_ITS | Encounter Summary ---
:1990 Author Organization [employer] Address [address] [place] [address] Care Team Providers Name Role Phone Patricia Da Silva PA-C Primary Care Provider Reason for Visit Reason Comments Ear Pain Encounter Details Date Type Department Care Team Description 10/11/2018 Office Visit [facility] Vikki Phan Ear pain, left [address] [employer] SAVANAH Oliveira (Primary Dx) [place] [address] [facility] [phone] [place], [place] [address] Social History Tobacco Use Types [...] seen previously for a hearing evaluation at [facility]. The patient reports that she had a [...] revealed hearing within normal limits, bilaterally. Speech medical office receptionist assistant thresholds were obtained at 5 dBHL for the right ear and 10 dBHL for the left ear. Word recognition at 45 dBHL was 100% for the right ear and at 50 dBHL was 100% for the left ear. Tympanometry revealed normal ear canal volume, pressure and static admittance, bilaterally. Assessment: Hearing is within normal limits, bilaterally. Tympanometry was within normal limits, bilaterally. Speech medical office receptionist assistant thresholds were in good agreement with the [...] Primary documented in this encounter Care Teams Mine Safety Manager Relationship Specialty Start Date End Date Patricia Da Silva PA-C PCP - General 10/13/15 [address] [place] [address] documented as of this encounter
--- OUTSIDE RECORDS SUMMARY | 2022-05-24 10:40 | XMS_ITS | Encounter Summary ---
:1990 Author Organization [employer] Address [address] [facility] [place] [address] Care Team Providers Name Role Phone Patricia Da Silva PA-C Primary Care Provider Reason for Referral Consult/Transfer Care (Routine) - Closed Specialty Diagnoses / Procedures Referred By Contact Refer red To Contact Diagnoses Dysfunction of [place] [address] [place] [address] Referral ID Status Reason Start Date Expiration Date Visits Requ ested Visits Authorized [id number] Closed 10/05/2018 01/04/2020 1 1 Scheduling Instructions [...] Team Description 10/05/2018 Office Visit Dejuan Langford, Dysfunc tion of left [place] [address] [address] [address] [facility] (Primary Dx) [place] [address] [phone] Social History Tobacco Use Types Packs/Day Years [...] tube documented in this encounter Care Teams Fullerette Relationship Specialty Start Date End Date Patricia Da Silva PA-C PCP - General 10/13/15 [address] [place] [address] documented as of this encounter
--- OUTSIDE RECORDS SUMMARY | 2022-05-24 10:40 | XMS_ITS | Encounter Summary ---
:1990 Author Organization [employer] Address [address] [place] [address] Care Team Providers Name Role Phone Patricia Da Silva PA-C Primary Care Provider Encounter Details Date Type Department Care Team Description 01/09/2018 juan Agudelo [phone] Social History Tobacco Use Types Packs/Day Years [...] try an antibiotic. [facility] . I've also listed a few [...] a full stomach. Refills: None Sent To: [facility] DUSTIN [place] [address] Treatment Plan Self Care Tip Topics Warm [...] monohyd/m-cryst) norgestimate-ethinyl estradiol (norgestimate-ethinyl estradiol) Allergies None [employer] Information [facility] We are an online clinic open 31/01. If you have any questions or comments about this visit, please call or email [email or web address] documented in this encounter Plan of Treatment Not on filedocumented as of this encounter Visit Diagnoses Not on filedocumented in this encounter Care Teams High School Sports Coach Relationship Specialty Start Date End Date Patricia Da Silva PA-C PCP - General 10/13/15 [address] [place] [address] documented as of this encounter
--- OUTSIDE RECORDS SUMMARY | 2022-05-24 10:40 | XMS_ITS | Encounter Summary ---
:1990 Author Organization [facility] Address [address] [place] [address] Care Team Providers Name Role Phone Patricia Da Silva PA-C Primary Care Provider Encounter Details Date Type Department Care Team Description 05/23/2019 Immunization [facility] Need for prophylactic [address] [place] [address] inoculation against [phone] influenza Social History Tobacco Use Types Packs/Day [...] influenza documented in this encounter Care Teams Edger Saw Operator Relationship Specialty Start Date End Date Patricia Da Silva PA-C PCP - General 10/13/15 [address] [place] [address] documented as of this encounter
--- OUTSIDE RECORDS SUMMARY | 2022-05-24 10:40 | XMS_ITS | Encounter Summary ---
:1990 Author Organization [employer] Address [address] [place] [address] Care Team Providers Name Role Phone Patricia Da Silva PA-C Primary Care Provider Encounter Details Date Type Department Care Team Description 07/27/2019 Lab Visit [facility] Encounter for screening for lipoid disorders; [address] [address] Divya. [place] [address] Social History Tobacco Use Types Packs/Day Years Used Date Smoking Tobacco: Former Cigarettes Quit : 07/09/2012 Smokeless Tobacco: Never Alcohol Use Standard Drinks/Week Comments Not Currently 2 (1 standard drink = 0.6 oz pure alcoho l) Sober since Apr 04, 2019 Sex Assigned at Date Recorded Not on file documented as of this encounter Plan of Treatment Not on filedocumented as of this encounter Procedures Procedure Name Priority Date/Time Associated Diagnosis Comme nts LIPID PANEL AND Routine 07/27/2019 12:28 PM Encounter for Resu lts for this DIRECT LDL(IF APPAREL EMBROIDERY DIGITIZER screening for lipoid proced ure are in NEEDED) disorders the results section. GLUCOSE Routine 07/27/2019 12:28 PM Screening for Results for this APPAREL EMBROIDERY DIGITIZER diabetes mellitus procedure are in the results section. documented in this encounter Results Glucose (07/27/2019 12:28 PM APPAREL EMBROIDERY DIGITIZER) athologist Signature Glucose 98 70 - 100 07/27/2019 [place] mg/dL 4:00 PM [facility]BROIDERY [facility]IT[facility] Comment: The given reference range is fo r the fasting state. Non-fasting reference range for glucose is 70 - 180 mg/dL. Hours Fasting 2 07/27/2019 4:00 PM APPAREL EMBROIDERY DIGITIZER [facility] Specimen Anatomical Collection Method / Collection Time Recei gretchen Time (Source) Location / Volume Laterality Blood Venipuncture / 07/27/2019 12:28 0 Unknown PM APPAREL EMBROIDERY DIGITIZER 12:28 PM APPAREL EMBROIDERY DIGITIZER Patricia Da Silva PA-C LAB_1 Performing Organization Address [facility] e Number [facility] [facility] [address] [place], [place] [phone] [facility] [address] [place] [address], [phone] [place] (ABNORMAL) Lipid Panel and Direct LDL(If Needed) (07/27/2019 12:28 PM APPAREL EMBROIDERY DIGITIZER) [facility] Method Time Signature Cholesterol 149 0 - 199 07/27/2019 [place] mg/dL 4:00 PM [facility] Triglyceride 125 <=149 07/27/2019 [place] mg/dL 4:00 PM [facility] HDL Cholesterol 33 (L) >=40 mg/dL 07/27/2019 [place] 4:00 PM [facility] LDL, Calculated 91 <130 mg/dL 07/27/2019 [place] 4:00 PM [facility] Non HDL Chol, 116 mg/dL 07/27/2019 [place] Calculated 4:00 PM [facility] Cholesterol/HDL 4.5 07/27/2019 [place] Ratio 4:00 PM [facility]BROID[facility] Hours Fasting 2 07/27/2019 [facility] 4:00 PM APPAREL EMBROIDERY DIGITIZER Specimen Anatomical Collection Method / Collection Time Recei gretchen Time (Source) Location / Volume Laterality Blood Venipuncture / 07/27/2019 12:28 0 Unknown PM APPAREL EMBROIDERY DIGITIZER 12:28 PM APPAREL EMBROIDERY DIGITIZER Patricia Da Silva PA-C LAB_1 Performing Organization Address City[facility] e Number [facility] [address] [place], [place] [phone] [facility] [address] [place] [address], [place] documented in this encounter Visit Diagnoses Diagnosis Encounter for screening for lipoid disor ders Screening for lipoid disorders Screening for diabetes mellitus documented in this encounter Care Teams Sky Line Yarder Relationship Specialty Start Date End Date Patricia Da Silva PA-C PCP - General 10/13/15 [address] [place] [address] documented as of this encounter
--- OUTSIDE RECORDS SUMMARY | 2022-05-24 10:40 | XMS_ITS | Encounter Summary ---
:1990 Author Organization [employer] Address [address] [place] [address] Care Team Providers Name Role Phone Patricia Da Silva PA-C Primary Care Provider Reason for Visit Reason Comments Refill [id number]-RV-TDFRCO 0.18/0.215/0.2 5 MG-25 MCG tablet [Pharmacy Med Name: Xcj-Ml-Ktvodf Oral Tablet 0. 18/0.215/0.25 MG-25 MCG] Encounter Details Date Type Department Care Team Description 07/20/2019 Refill [facility] Patricia Da Silva, Refill (YIX-AU-EXDBXW Medicine PATSY 0.18/0.215/0.25 MG-25 [address] [address] MCG tablet [Pharmacy Med [place], [place] [address] Name: Ips-Dt-Tumleq Oral [id number] Tablet 0.18/0.215/0.25 [phone] MG-25 MCG ]) Social History Tobacco Use [...] appointment for 07/27/19 with Patricia Da Silva. UP Mita Dickerson, RN - 07/23/2019 12:36 PM CST Further Assistance Needed on Refill from Mine Wirer Patient is overdue for Office visit. -> [...] Requested Prescriptions Pending Prescriptions Disp Refills ??? [id number]-[id number] 0.18/0.215/0.25 MG-25 MCG tablet [Pharmacy Med Name: Wlz-Av-Crqxmu Oral Tablet 0.18/0.215/0.25 MG-25 MCG] 28 Tablet 0 Sig: TAKE ONE TABLET BY MOUTH EVERY DAY UP [place], Randi Surescripts Prov Query - 07/20/2019 2:28 PM CST FQB-BW-WVVPNX 0.18/0.215/0.25 MG-25 MCG tablet [Pharmacy Med Name: Wsw-Uv-Fcpkxs Oral Tablet 0.18/0.215/0.25 MG-25 MCG] Medication started: 04/11/2016 Last ordered by PATRICIA DA SILVA: 03/03/2019 (139 days ago) QTY: 84, Refills: 0, Sig: take one tabletby mouth every day (unchanged) -> An office visit is overdue (performed 19 months ago, required every 12 months). Last qualifying visit: 12/28/2017 (with PATRICIA DA SLIVA) (A more recent visit (in Family Practice) was found) Next scheduled visit: None SBP: 160 mm Hg on 10/05/2018 DBP: 114 mm Hg on 10/05/2018 Powered by [employer], Reference: [id number], 07/20/2019 2:28:27 PM HOOK UP, Pool: JUANA REFILL ([id number]) UP documented in this encounter Plan of Treatment Not on filedocumented as of this encounter Visit Diagnoses Diagnosis Encounter for surveillance of contracept hosea pills Surveillance of previously prescribed co ntraceptive pill documented in this encounter Care Teams Mobile Application Developer Relationship Specialty Start Date End Date Patricia Da Silva PA-C PCP - General 10/13/15 [address] [place] [address] documented as of this encounter
--- OUTSIDE RECORDS SUMMARY | 2022-05-24 10:40 | XMS_ITS | Encounter Summary ---
:1990 Author Organization [facility] Address [address] [place] [address] Care Team Providers Name Role Phone Patricia Da Silva PA-C Primary Care Provider Reason for Visit Reason Onset Date Comments Refill 07/19/2020 Norethin Randolph-Eth Est rad-FE () 1-20 MG-MCG tablet Encounter Details Date Type Department Care Team Description 07/19/2020 Refill [place] [address] Family Patricia Da Silva R efill (Norethin Randolph-Eth Medicine PATSY Estrad-FE () [address] 1-20 MG-MCG tablet) [place], [place] [address] [phone] Social History Tobacco Use Types Packs/Day Years Used Date Smoking Tobacco: Former Cigarettes Quit : 07/09/2012 Smokeless Tobacco: Never Alcohol Use Standard Drinks/Week Comments Not Currently 2 (1 standard drink = 0.6 oz pure alcoho l) Sober since Apr 04, 2019 Sex Assigned at Date Recorded Not on file documented as of this encounter Nursing Notes Neftaly Chan, RN - 07/19/2020 11:46 AM CST Renewed medication per medication refill protocol. Requested Prescriptions Pending Prescriptions Disp Refills Norethin Randolph-Eth Estrad-FE () 1-20 MG-MCG tablet 90 Tablet 0 Sig: Take 1 Tablet by mouth daily. CLIPPER POWER Neftaly Chan RN - 07/19/2020 11:46 AM CST 90 day supply given per Emergency Refill Standing Order. Neftaly Chan RN 07/19/2020, 11:46 AM CLIPPER POWER Interface, Out [employer] Prov Query - 07/19/2020 11:46 AM CST [...] SILVA) Next scheduled visit: None Powered by [facility], Reference: [id number], 07/19/2020 11:46:10 AM Osmany [place] REFILL ([id number]) CLIPPER POWER Isidra Avendaño MA - 07/19/2020 11:45 AM CST Alden requested for pending Rx(s). Patient is out of medication. Please send new Rx(s) if appropriate, thank you. CLIPPER POWER documented in this encounter Plan of Treatment Not on filedocumented as of this encounter Visit Diagnoses Diagnosis Encounter for surveillance of contracept hosea pills Surveillance of previously prescribed co ntraceptive pill documented in this encounter Care Teams High School Counselor Relationship Specialty Start Date End Date Patricia Da Silva PA-C PCP - General 10/13/15 [address] [place] [address] documented as of this encounter
--- OUTSIDE RECORDS SUMMARY | 2022-05-24 10:40 | XMS_ITS | Encounter Summary ---
:1990 Author Organization [employer] Address [address] [place] [address] Care Team Providers Name Role Phone Patricia Da Silva PA-C Primary Care Provider Encounter Details Date Type Department Care Team Description 09/05/2018 juan Agudelo [phone] Social History Tobacco Use Types Packs/Day Years [...] Sinusitis Visit Date September 05, 2018 Binta Warren Date of : 89 Provider Silvana Yousif, Nurse Practitioner Note From Provider Binta, let's have you watch this viral sinus infection video that I've included for you today. Requst a Call Back if you are not improving in the next few days! iSlvana Treatment Plan Let???s get you feeling better in the next 24 hours by using a prescription nasal steroid and an effective blend of lyfo-qys-udkylsc products to kick this viral infection. We???ll work to reduce your pain and inflammation, help drain that irritating mucus and prevent this from worsening. Because this infection is caused by a virus, an antibiotic won???t be effective at helping your pain or treating the virus. I sent your nasal steroid prescription to [facility] . This medication is also available yigj-wfy-skjfrii, so you may want to check with your pharmacy to see which option is more cost-friendly. If your symptoms don???t improve after 24 hours, or if you have questions, select Help to Request a Call Back and we???ll adjust your treatment for free. Order(s) Flonase Allergy Relief 50 mcg/actuation spray,suspension [place] 2 spray into both nostrils once a day as needed for 30 days Note: Start with 2 sprays in both nostrils daily for 1 week, then 1-2 sprays daily. Refills: 11 Sent To: [facility] [address] [place] [address] Treatment Plan Self Care Tip Topics Inflammation [...] (fluticasone) norgestimate-ethinyl estradiol (norgestimate-ethinyl estradiol) Allergies None [employer] Information [facility] [employer] We are an online clinic open 31/01. If you have any questions or comments about this visit, please call or email [email or web address] documented in this encounter Plan of Treatment Not on filedocumented as of this encounter Visit Diagnoses Not on filedocumented in this encounter Care Teams I&C Tech Relationship Specialty Start Date End Date Patricia Da Silva PA-C PCP - General 10/13/15 [address] [place] [address] documented as of this encounter
--- OUTSIDE RECORDS SUMMARY | 2022-05-24 10:40 | XMS_ITS | Encounter Summary ---
:1990 Author Organization [employer] Address [address] [place] [address] Care Team Providers Name Role Phone Patricia Da Silva PA-C Primary Care Provider Reason for Visit Reason Comments CONSULT ETD left ear Consult/Transfer Care (Routine) - Closed Specialty Diagnoses / Procedures Referred By Contact Refer red To Contact Diagnoses Dysfunction of left [place]ustach[place] [address] [place] [address] Referral ID Status Reason Start Date Expiration Date Visits Requ ested Visits Authorized [id number] Closed 10/05/2018 01/04/2020 1 1 Encounter Details Date Type Department Care Team Description 10/11/2018 Initial Consult [facility], Lenny Hobbs Left ea r pain (Primary Dx); Nose, and Throat PATSY Nielson Temporomandibular joint disorder; [address] [facility] [address] [place] [address] [phone] Social History Tobacco Use Types Packs/Day Years [...] CDT [facility]TON [facility] Practice Locations: Nurse: Silvana [phone] [place] [address] [place] [facility] - [address] [facility] [address] Appointment [phone] [place] [address] [facility] [address] TEMPOROMANDIBULAR JOINT (TMJ) AND EAR PAIN Your [...] teeth (especially at night), consider getting a ???life guard?? . This is a mouth guard [...] left periorbital area. She was treated through [facility]. The nasal symptoms seem to have resolved. [...] in the morning, needs to purchase a life guard. On the day they notice that [...] rhinitis documented in this encounter Care Teams Computer Repair Engineer Relationship Specialty Start Date End Date Patricia Da Silva PA-C PCP - General 10/13/15 [address] [place] [address] documented as of this encounter
--- OUTSIDE RECORDS SUMMARY | 2022-05-24 10:40 | XMS_ITS | Encounter Summary ---
:1990 Author Organization [employer] Address [address] [place] [address] Care Team Providers Name Role Phone Patricia Da Silva PA-C Primary Care Provider Reason for Visit Reason Comments Refill Norethin Randolph-Eth Estrad-FE ( BLISOVI FE 07/30) 1-20 MG-MCG tablet Encounter Details Date Type Department Care Team Description 01/05/2021 Refill [place] [address] Family Patricia Da Silva R efill (Norethin Randolph-Eth Medicine PATSY Estrad-FE ([place] FE [address] 07/30) 1-20 MG-MCG [place], [place] [address] tablet) [address] [phone] Social History Tobacco Use Types Packs/Day Years [...] refills) Please route to: Refill Pool (P [id number]) Council FP Pool [place] Patients ONLY (P [phone]) SmartCare Refill Pool (P [id number]) Interface, Out [employer] Prov Query - 01/05/2021 12:44 PM CDT [...] SILVA) Next scheduled visit: None Powered by SPIRIT [employer]ch by [email or web address], Reference: [id number], 01/05/2021 12:44:41 PM CDT, [place]: PN REFILL WIZARD ADMIN ([id number]) Marco Rodgers - 01/05/2021 12:43 PM CDT [...] refills) Please route to: Refill Pool (P [id number]) Council FP Pool [place] Patients ONLY (P [phone]) SmartCare Refill Pool (P [id number]) documented in this encounter Plan of Treatment Not on filedocumented as of this encounter Visit Diagnoses Diagnosis Encounter for surveillance of contracept hosea pills Surveillance of previously prescribed co ntraceptive pill documented in this encounter Care Teams Heel Seat Fitter Relationship Specialty Start Date End Date Patricia Da Silva PA-C PCP - General 10/13/15 [address] [place] [address] documented as of this encounter
--- OUTSIDE RECORDS SUMMARY | 2022-05-24 10:40 | XMS_ITS | Encounter Summary ---
:1990 Author Organization [employer] Address [address] [place] [address] Care Team Providers Name Role Phone Patricia Da Silva PA-C Primary Care Provider Reason for Visit Reason Comments Refill TRI-SPRINTEC 0.18/0.215/0.25 MG-35 MCG tablet [Pharmacy Med Name: Tri-Sprintec Oral Tablet 0.18/0.215/0.25 MG-35 MCG] Encounter Details Date Type Department Care Team Description 12/20/2017 Refill [facility] Patricia Da Silva, Refill (TRI-SPRINTEC Medicine PATSY 0.18/0.215/0.25 MG-35 [address] MCG tablet [Pharmacy Med [place], [place] [address] Name: Tri-Sprintec Oral [id number] Tablet 0.18/0.215/0.25 [phone] MG-35 MCG ]) Social History Tobacco Use Types Packs/Day Years Used Date Smoking Tobacco: Former Cigarettes Quit : 07/09/2012 Smokeless Tobacco: Never Alcohol Use Standard Drinks/Week Comments Yes 2 (1 standard drink = 0.6 oz pure alcoho l) 2-3 drinks per week. Sex Assigned at Date Recorded Not on [...] 1 Tab by mouth daily. Interface, Out [employer] Prov Query - 12/20/2017 10:44 AM CDT TRI-SPRINTEC [...] 106 mm Hg on 06/28/2017 Powered by [employer] Reference: [id number], 12/20/2017 10:44:49 AM CDT, Pool: JUANA REFILL ([id number]) documented in this encounter Plan of Treatment Not on filedocumented as of this encounter Visit Diagnoses Diagnosis Encounter for surveillance of contracept hosea pills Surveillance of previously prescribed co ntraceptive pill documented in this encounter Care Teams Vegetable Thinner Relationship Specialty Start Date End Date Patricia Da Silva PA-C PCP - General 10/13/15 [address] [place] [address] documented as of this encounter
--- OUTSIDE RECORDS SUMMARY | 2022-05-24 10:40 | XMS_ITS | Clinical Summary ---
:1990 Author Organization [facility] Address [address] [place] [address] Care Team Providers Name Role Phone Patricia [...] for each transition of care or referral. [facility] Allergies No known active allergies Medications Medication [...] Influenza IIV4 (Quadrivalent) 0.5mL 06/02/2020, 05/23/2019, 05/17/2018, (85303) 05/16/2017, 05/19/2016, 06/18/2015 MMR 05/13/2012, 03/07/2003 Tdap [...] Comments Blood Pressure 132/87 06/17/2021 1:50 PM HEEL WASHER STRINGING MACHINE OPERATOR Pulse 102 06/17/2021 1:50 PM HEEL WASHER STRINGING MACHINE OPERATOR Temperature 37 ??C (98.6 ??F) 01/13/2021 8:02 AM CDT Respiratory Rate 16 06/17/2021 1:44 PM HEEL WASHER STRINGING MACHINE OPERATOR Oxygen Saturation - - Inhaled Oxygen Concentration - - Weight 63 kg (139 lb) 06/17/2021 1:44 PM HEEL WASHER STRINGING MACHINE OPERATOR Height 157.5 cm (5' 2) 06/17/2021 1:44 PM HEEL WASHER STRINGING MACHINE OPERATOR Body Mass Index 25.42 06/17/2021 1:44 PM HEEL WASHER STRINGING MACHINE OPERATOR Plan of Treatment Health Maintenance Due Date [...] Addre ss Type Group BCBS BCBS MNCARE [id number] 2019-Present [address] [id number] [place] [address] Binta Mckeon Personal/Family Self [address] [place] [address] Binta Mckeon Personal/Family Self 1990 [address] [place] [address] Care Teams Coal Drier Operator Relationship Specialty Start Date End Date Patricia Da Silva PA-C PCP - General 10/13/15 [address] [place] [address]
--- OUTSIDE RECORDS SUMMARY | 2022-05-24 10:40 | XMS_ITS | Encounter Summary ---
:1990 Author Organization [facility] Address [address] [place] [address] Care Team Providers Name Role Phone Patricia Da Silva PA-C Primary Care Provider Reason for Visit Reason Comments Refill PUW-GL-VMBWBO 0.18/0.215/0.2 5 MG-25 MCG tablet [Pharmacy Med Name: Ugd-Io-Rggaml Oral Tablet 0. 18/0.215/0.25 MG-25 MCG] Encounter Details Date Type Department Care Team Description 03/02/2019 Refill [facility] Patricia Da Silva, Refill (ZCT-KU-PEQYYW Medicine PATSY 0.18/0.215/0.25 MG-25 [address] [address] MCG tablet [Pharmacy Med [place], [place] [address] Name: Lpn-Ht-Woazzu Oral [id number] Tablet 0.18/0.215/0.25 [id number] MG-25 MCG ]) Social History Tobacco Use Types Packs/Day Years Used Date Smoking Tobacco: Former Cigarettes Quit : 07/09/2012 Smokeless Tobacco: Never Alcohol Use Standard Drinks/Week Comments Yes 2 (1 standard drink = 0.6 oz pure alcoho l) Sex Assigned at Date Recorded Not on file documented as of this encounter Nursing Notes Richa Enriquez R - 03/06/2019 11:53 AM CDT Appointment Letter PRINTED & Sent Kathya Montiel RN - 03/03/2019 8:46 AM CDT OFFICE APPOINTMENT NEEDED Please notify patient to schedule an appointment within 30 days. Requested Prescriptions Pending Prescriptions Disp Refills ??? ZQA-HI-BBMQIO 0.18/0.215/0.25 MG-25 MCG tablet [Pharmacy Med Name: Qac-Ik-Kiorhw Oral Tablet 0.18/0.215/0.25 MG-25 MCG] 84 Tablet Sig: TAKE ONE TABLET BY MOUTH EVERY DAY Interface, Out Surescripts Prov Query - 03/02/2019 8:32 PM CDT QJT-RM-ZPXIFS 0.18/0.215/0.25 MG-25 MCG tablet [Pharmacy Med Name: Lyi-Wg-Shvjbo Oral Tablet 0.18/0.215/0.25 MG-25 MCG] Medication started: [...] 114 mm Hg on 10/05/2018 Powered by [employer], Reference: [id number], 03/02/2019 8:32:20 PM CDT, Pool: JUANA REFILL ([id number]) documented in this encounter Plan of Treatment Not on filedocumented as of this encounter Visit Diagnoses Diagnosis Encounter for surveillance of contracept hosea pills Surveillance of previously prescribed co ntraceptive pill documented in this encounter Care Teams Blade Changer Relationship Specialty Start Date End Date Patricia Da Silva PA-C PCP - General 10/13/15 [address] [place] [address] documented as of this encounter
--- OUTSIDE RECORDS SUMMARY | 2022-05-24 10:40 | XMS_ITS | Encounter Summary ---
:1990 Author Organization [employer] Address [address] [place] [address] Care Team Providers Name Role Phone Patricia Da Silva PA-C Primary Care Provider Reason for Visit Reason Comments Annual Exam Encounter Details Date Type Department Care Team Description 07/27/2019 Office Visit [facility] Patricia aD Silva, Annual physical exam (Primary Dx); Medicine PATSY FH: malignant neoplasm of thyroid; [address] Encounter for surveillance of contracept hosea pills; [place], [place] Screening for diabetes mellitus; [phone] Encounter for screening for lipoid disor ders; [phone] History of alco hol abuse (Work) Social [...] Comments Blood Pressure 124/76 07/27/2019 11:44 AM FIRST MATE Pulse 80 07/27/2019 11:44 AM FIRST MATE Temperature - - Respiratory Rate - - Oxygen Saturation - - Inhaled Oxygen Concentration - - Weight 76.2 kg (168 lb 1.6 oz) 07/27/2019 11:44 AM FIRST MATE Height - - Body Mass Index 29.78 10/05/2018 9:25 AM CDT documented in this encounter Patient Instructions Patient InstructionsKiPatricia apple PA-C - 07/27/2019 11:40 AM CST Here [...] or concerns. Thanks, Patricia Da Silva, PAC. T MATE documented in this encounter Progress Notes Patricia [...] twice per week. Diet: Trying to eat spice cleaner and healthier now. Doing more whole 30 type stuff with her mom and she is living with her now. More chicken and proteins and veggies. Rare soda. Exercise: Just started at [employer] again, fast walk on the treadmill some weights and she is going to start some classes, is going 4-5x per week. Supplements: Multivitamin. 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 LMP: Patient's last menstrual period was 07/14/2019. Pap hx: Does patient have history of abnormal pap smear? no. Mammogram: N/A. Prev Med: Colonoscopy: N/A. Dexa: N/A. Past Medical, Family, Surgical and Social History, Drug allergies and Medications have been reviewedand updated in [facility] today. Review of Systems: The remainder of [...] of contraceptive pills - Norethin Randolph-Eth Estrad-FE (JUNELFE1/20) 1-20 MG-MCG tablet; Take 1 Tablet by [...] or concerns. Thanks, Patricia Da Silva, PAC. T MATE documented in this encounter Plan of Treatment Not on filedocumented as of this encounter Results Glucose (07/27/2019 12:28 PM FIRST MATE) P athologist Signature Glucose 98 70 - 100 07/27/2019 [facility] mg/dL 4:00 PM [facility] Comment: The given reference range is fo r the fasting state. Non-fasting reference range for glucose is 70 - 180 mg/dL. Hours Fasting 2 07/27/2019 4:00 PM [facility] Specimen Anatomical Collection Method / Collection Time Recei gretchen Time (Source) Location / Volume Laterality Blood Venipuncture / 07/27/2019 12:28 0 Unknown PM FIRST MATE 12:28 PM FIRST MATE Patricia Da Silva PA-C LAB_1 Performing Organization Address City/State/ZIP Code Phon e Number [facility] [address] [place] [address] [facility] [address] [place] [address], [facility] (ABNORMAL) Lipid Panel and Direct LDL(If Needed) (07/27/2019 12:28 PM FIRST MATE) [facility] gist Method Time Signature Cholesterol 149 0 - 199 07/27/2019 [facility] mg/dL 4:00 PM [facility] Triglyceride 125 <=149 07/27/2019 [facility] mg/dL 4:00 PM [facility] HDL Cholesterol 33 (L) >=40 mg/dL 07/27/2019 [facility] 4:00 PM [facility] LDL, Calculated 91 <130 mg/dL 07/27/2019 [facility] 4:00 PM [facility] Non HDL Chol, 116 mg/dL 07/27/2019 [facility] Calculated 4:00 PM [facility] Cholesterol/HDL 4.5 07/27/2019 [facility] Ratio 4:00 PM [facility] Hours Fasting 2 07/27/2019 [facility] 4:00 PM FIRST MATE Specimen Anatomical Collection Method / Collection Time Recei gretchen Time (Source) Location / Volume Laterality Blood Venipuncture / 07/27/2019 12:28 0 Unknown PM FIRST MATE 12:28 PM FIRST MATE Patricia Da Silva PA-C LAB_1 Performing Organization Address City/State/ZIP Code Phon e Number [facility] [address] [place] [address] [address] [address], [phone] [place] documented in this encounter Visit Diagnoses [...] remission documented in this encounter Care Teams Game Advisor Relationship Specialty Start Date End Date Patricia Da Silva PA-C PCP - General 10/13/[id number] [place] [address] documented as of this encounter
--- OUTSIDE RECORDS SUMMARY | 2022-05-24 10:40 | XMS_ITS | Encounter Summary ---
:1990 Author Organization [employer] Address [address] [place] [address] Care Team Providers Name Role Phone Patricia Da Silva PA-C Primary Care Provider Encounter Details Date Type Department Care Team Description 12/28/2017 Lab Visit [facility] Annual physical exam; [address] Screening for HIV (human imm unodeficiency virus); [place] [address] FH: malignant neoplasm of th yroid [phone] Social History Tobacco Use Types Packs/Day Years [...] - 12/28/2017 9:59 PM CDT Performed at [facility], [address] [place] [address] CLIA number [id number] Patricia Da Silva PA-C LAB_1 Performing Organization Address [facility] Phon e Number [facility] [address] [place] [address] HIV 1/2 Ag/Ab 4th Generation (12/28/2017 4:27 PM CDT) [facility] gist Method Time Signature HIV-1 p24 Ag Nonreactive Nonreactive PN SOFT and HIV-1/HIV-2 Ab Specimen Anatomical Collection Method Collection Time Receive d Time (Source) Location / / Volume Laterality 12/28/2017 4:27 PM 8 9:20 CDT PM CDT Narrative PN SOFT - 12/28/2017 10:11 PM CDT Performed at [facility], [address] [place] [address] CLIA number [id number] Patricia Da Silva PA-C LAB_1 Performing Organization Address [facility] Phon e Number PN SOFT [address] [place] [address] Complete Blood Count-No Diff (12/28/2017 4:27 PM [...] PM 8 4:27 CDT PM CDT Narrative BELLE SUAREZ - 12/28/2017 4:29 PM CDT Performed at [facility], [address] [place] [address] CLIA number [id number] Patricia Da Silva PA-C LAB_1 Performing Organization Address City/State/ZIP Code Phon e Number PN [facility] [address] [place] [address] documented in this encounter Visit Diagnoses Diagnosis Annual physical exam Routine general medical examination at a health care facility Screening for HIV (human immunodeficienc y virus) Special screening examination for other specified viral diseases FH: malignant neoplasm of thyroid Family history of other specified malign ant neoplasm documented in this encounter Care Teams Veneer Press Operator Relationship Specialty Start Date End Date Patricia Da Silva PA-C PCP - General 10/13/15 [address] [place] [address] documented as of this encounter
--- OUTSIDE RECORDS SUMMARY | 2022-05-24 10:40 | XMS_ITS | Encounter Summary ---
:1990 Author Organization [employer] Address [address] [place] [address] Care Team Providers Name Role Phone Patricia Da Silva PA-C Primary Care Provider Reason for Visit Reason Comments Medication Change Encounter Details Date Type Department Care Team Description 01/05/2021 Nurse Triage [place] [address] Family Patricia Da Silva M edication Change Medicine PAT[place] [address] [place], [place] [address] [phone] Social History Tobacco Use Types Packs/Day Years Used Date Smoking Tobacco: Former Cigarettes Quit : 07/09/2012 Smokeless Tobacco: Never Alcohol Use Standard Drinks/Week Comments Not Currently 2 (1 standard drink = 0.6 oz pure alcoho l) Sober since Apr 04, 2019 Sex Assigned at Date Recorded Not on file documented as of this encounter Nursing Notes Luz Maria Garcia, CAN - 01/05/2021 2:15 PM CDT Spoke with [...] Protocols used: CONTRACEPTION - CONTROL PILLS - [id number] Marco Rodgers - 01/05/2021 12:42 PM CDT [...] on filedocumented in this encounter Care Teams Utility Aircrewman Relationship Specialty Start Date End Date Patricia Da Silva PA-C PCP - General 10/13/15 [address] [place] [address] documented as of this encounter
--- OUTSIDE RECORDS SUMMARY | 2022-05-24 10:40 | XMS_ITS | Encounter Summary ---
:1990 [facility] Address [address] [place] [address] Care Team Providers Name Role Phone Patricia Da Silva PA-C Primary Care Provider Reason for Visit Reason Comments Refill BLISOVI FE 1/20 1-20 MG-MCG tablet [Pharmacy Med Name: Blisovi FE 1/20 Oral Tablet 1-20 MG-MCG] Encounter Details Date Type Department Care Team Description 10/09/2020 Refill [place] [address] Family Patricia Da Silva R efill (BLISOVI FE 1/20 Medicine PA-C 1-20 MG-MCG tablet [address] [facility] [address] [facility] [Pharmacy Med Name: [place], [place] [address] Blisovi FE 1/20 Oral [id number] Tablet 1-20 MG-MCG]) [phone] Social History Tobacco Use Types Packs/Day Years Used Date Smoking Tobacco: Former Cigarettes Quit : 07/09/2012 Smokeless Tobacco: Never Alcohol Use Standard Drinks/Week Comments Not Currently 2 (1 standard drink = 0.6 oz pure alcoho l) Sober since Apr 04, 2019 Sex Assigned at Date Recorded Not on file documented as of this encounter Nursing Notes Nefatly Chan RN - 10/09/2020 11:33 AM CDT Renewed [...] SILVA) Next scheduled visit: None Powered by [employer], Reference: [id number], 10/09/2020 11:12:16 AM CDT, Pool: JUANA REFILL ([id number]) documented in this encounter Plan of Treatment Not on filedocumented as of this encounter Visit Diagnoses Diagnosis Encounter for surveillance of contracept hosea pills Surveillance of previously prescribed co ntraceptive pill documented in this encounter Care Teams Title Assistant Relationship Specialty Start Date End Date Patricia Da Silva PA-C PCP - General 10/13/15 [address] [place] [address] documented as of this encounter
--- OUTSIDE RECORDS SUMMARY | 2022-05-24 10:40 | XMS_ITS | Encounter Summary ---
:1990 Author Organization [employer] Address [address] [place] [address] Care Team Providers Name Role Phone Patricia Da Silva PA-C Primary Care Provider Reason for Visit Reason Comments Annual Exam Pap Encounter Details Date Type Department Care Team Description 01/28/2021 Office Visit [place] [address] Patricia Da Silva, Annual p hysical exam (Primary Dx); Family Medicine PA-Herman Pap smear for cervical cancer screening; [address] Encounter for surveillance of contracept hosea pills; [place], [place] History of al cohol abuse; [address] FH: malignant neoplasm of thyroid; [phone] Screen for STD (sexually transmitted disease) (Work) [...] on with more schooling. 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 She has cleaned up her diet, stopped drinking soda andis working out daily now cardio and strength and has lost 15 lbs and feels great. Needs refill of OCP. Doing well on that. No other concerns today. 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 LMP: Patient's last menstrual period was 01/21/2021 (lmp unknown). Pap hx: Does patient have history of abnormal pap smear? no. Mammogram: N/A. Prev Med: Colonoscopy: N/A. Dexa: N/A. Past Medical, Family, Surgical and Social History, Drug allergies and Medications have been reviewedand updated in [employer] today. Review of Systems: The remainder of [...] external genitalia and urethra, without lesions noted. [place], moist vaginal and cervical mucosa, without lesions. [...] and GC STD (01/28/2021 12:01 PM CDT) [employer] Method Time Signature Chlamydia Not Not 01/29/2021 [facility] Trachomatis Detected Detected 1:14 AM CDT CENTRAL LAB STD N. gonorrhoeae Not Not 01/29/2021 [facility] STD Detected Detected 1:14 AM CDT CENTRAL LAB Specimen Anatomical Collection Method Collection Time Receive d Time (Source) Location / / Volume Laterality Swab STD ENTIRE ENDOCERVIX Non-blood 01/28/2021 12:01 2020 / Unknown Collection / PM CDT 12:01 PM CDT Unknown Narrative [facility] C[facility]TRAL [facility] - 01/29/2021 1:14 AM CDT Test performed by Child Care Attendant Mediated Amplification (TMA). Patricia Da Silva PA-C LAB_1 Performing Organization Address City/State/ZIP Code Phon e Number [facility] [address] [address] HPV with 16 18 Genotyping (01/28/2021 11:01 AM CDT) [facility] Method Time Signature HPV High Risk Not Detected Not detected 01/31/2021 [facility] Type 16 PCR 7:04 AM CDT HOSPITAL HPV High Risk Not Detected Not Detected 01/31/2021 [facility] Type 18 PCR 7:04 AM CDT HOSPITAL HPV High Risk Not Detected Not detected 01/31/2021 [facility] Other Than 7:04 AM CDT [facility] 16/18 Specimen Anatomical Collection Method Collection Time Receive d Time (Source) Location / / Volume Laterality Cervical Broom ENTIRE ENDOCERVIX 01/28/2021 11:01 07/2 07/2020 / Unknown AM CDT 12:00 PM CDT [facility] - 01/31/2021 7:04 AM CD T The [...] Performing Organization Address City/State/[place] [address] PAP Test (01/28/2021 11:01 AM CDT) Component Value Ref Test Analysis Performed At [facility] Method Time [facility] Case Report Pap ? Case: [id number] ? 02/10/2021 [facility] Authorizing Provider: ??Patricia Leon PA-C ?Collected: ? 01/28/2021 1101 ? 10:26 AM LABORAT ORY Ordering Location: ? [facility] ? Received: ?01/28/2021 1200 ? CDT ? Medicine ? First Screen: ? Elena Manzanares, CT ? (ASCP) ? Specimen: ?Pap Test, Rou bonita, Cervix/Endocervix ? Pap Specimen Satisfactory for 02/10/2021 [facility] Adequacy evaluation, 10:26 AM LABORATORY endocervical/lebron CDT sformation zone component present. Pap Negative for 02/10/2021 [facility] Electr onically Interpretation intraepithelial 10:26 AM LABORATOR Y signed by lesion or CDT Storm Manzanares, CT ( CP) on (NIL). 02/10/2021 a t 10:26 AM Pap Other Fungal organisms 02/10/2021 [facility] Findings morphologically 10:26 AM LABORATORY consistent with [...] may occur. Gross The specimen is 02/10/2021 [facility] Description received in 10:26 AM LABORATORY [employer] fixative CDT and properly labeled. 1 Pap-stained SurePath slide is prepared. Embedded Images 02/10/2021 [facility] 10:26 AM LABORATORY CDT Specimen Anatomical Collection Method Collection Time Receive d Time (Source) Location / / Volume Laterality Other Specimen ENTIRE ENDOCERVIX 01/28/2021 11:01 01/09 Type / Unknown AM CDT 12:00 PM CDT Comment: LMP: Patient's last menstrual p eriod was 01/21/2021 (lmp unknown). Patricia Da Silva PA-C LAB PATHOLOGY Performing Organization Address City/State/ZIP Code Phon e Number [facility] [address] [place] [address] documented in this encounter Visit Diagnoses Diagnosis [...] se documented in this encounter Care Teams Migratory Farm Hand Relationship Specialty Start Date End Date Patricia Da Silva PA-C PCP - General 10/13/15 [address] [place] [address] documented as of this encounter
--- OUTSIDE RECORDS SUMMARY | 2022-05-24 10:40 | XMS_ITS | Encounter Summary ---
:1990 Author Organization [employer] Address [address] [place] [address] Care Team Providers Name Role Phone Patricia Da Silva PA-C Primary Care Provider Reason for Visit Reason Onset Date Comments FOLLOW-UP, CONTROL, NOS Video Visit 01/13/2021 Encounter Details Date Type Department Care Team Description 01/13/2021 Telemedicine [place] [address] Patricia Da Silva Encounte r for surveillance of contraceptive pills (Primary Dx); Family Medicine PATSY History of alcohol abuse [address] [facility] [address] [place] [address] [phone] Social History Tobacco Use Types Packs/Day Years [...] more schooling. 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
--- OUTSIDE RECORDS SUMMARY | 2022-05-24 10:40 | XMS_ITS | Encounter Summary ---
:1990 Author Organization [facility] Address [address] [place] [address] Care Team Providers Name Role Phone Patricia Da Silva PA-C Primary Care Provider Reason for Referral Therapies (Routine) - New Request Specialty Diagnoses / Procedures Referred By Contact Refer red To Contact Diagnoses Vertigo Ministerio Hughes PA-C [address] [place] [address] Referral ID Status Reason Start Date Expiration Date Visits V isits Requested Authorized [id number] New Request 06/17/2021 06/17/2022 1 1 Scheduling Instructions Your provider has recommended an appoint ment with [facility]. You may call [phone] to schedule your a ppointment. We suggest you call your health insurance company about your coverage an d benefits for this appointment. TY COMPLIANCE SPECIALIST Reason for Visit Reason Comments DIZZINESS started last tuesday worse for the week better the last 2 days mostly when bends over and stands up or getting up in am Encounter Details Date Type Department Care Team Description 06/17/2021 Office Visit [place] [address] Family Ministerio Hughes V ertigo (Primary Dx) Medicine PATSY [address] [facility] [address] [place] [address] [phone] Social History Tobacco Use Types Packs/Day Years [...] Comments Blood Pressure 132/87 06/17/2021 1:50 PM SAFETY COMPLIANCE SPECIALIST Pulse 102 06/17/2021 1:50 PM SAFETY COMPLIANCE SPECIALIST Temperature - - Respiratory Rate 16 06/17/2021 1:44 PM SAFETY COMPLIANCE SPECIALIST Oxygen Saturation - - Inhaled Oxygen Concentration - - Weight 63 kg (139 lb) 06/17/2021 1:44 PM SAFETY COMPLIANCE SPECIALIST Height 157.5 cm (5' 2) 06/17/2021 1:44 PM SAFETY COMPLIANCE SPECIALIST Body Mass Index 25.42 06/17/2021 1:44 PM SAFETY COMPLIANCE SPECIALIST documented in this encounter Patient Instructions Patient [...] MRI) if not improving or getting worse. TY COMPLIANCE SPECIALIST documented in this encounter Progress Notes Ministerio [...] MRI) if not improving or getting worse. TY COMPLIANCE SPECIALIST documented in this encounter Plan of Treatment Scheduled Referrals Name Type Priority Associated Diagnoses Order S [facility] Physical Therapy Referral Routine Vertigo Ordered: documented as of this encounter Visit Diagnoses Diagnosis Vertigo - Primary Dizziness and giddiness documented in this encounter Care Teams Block Breaker Operator Relationship Specialty Start Date End Date Patricia Da Silva PA-C PCP - General 10/13/15 [address] [place] [address] documented as of this encounter
--- OUTSIDE RECORDS SUMMARY | 2022-05-24 10:40 | XMS_ITS | Encounter Summary ---
:1990 Author Organization [facility] Address [address] [place] [address] Care Team Providers Name Role Phone Patricia Da Silva PA-C Primary Care Provider Reason for Visit Reason Comments DIZZINESS Encounter Details Date Type Department Care Team Description 06/10/2021 Telephone [place] [address] Family Tyra Da Silva PA-C DIZZINESS Medicine [address] [facility] [address] [place] [address] [place] [address] [phone] Social History Tobacco Use Types Packs/Day Years [...] a pool number. Please sign/close phone encounter STRIP MILL INSPECTOR documented in this encounter Plan of Treatment Not on filedocumented as of this encounter Visit Diagnoses Not on filedocumented in this encounter Care Teams Marine Operations Coordinator Relationship Specialty Start Date End Date Patricia Da Silva PA-C PCP - General 10/13/15 [address] [place] [address] documented as of this encounter
--- OUTSIDE RECORDS SUMMARY | 2022-05-24 10:40 | XMS_ITS | Encounter Summary ---
:1990 Author Organization [facility] Address [address] [place] [address] Care Team Providers Name Role Phone Patricia Da Silva PA-C Primary Care Provider Reason for Visit Reason Comments Annual Exam Encounter Details Date Type Department Care Team Description 12/28/2017 Office Visit [place] [facility] Patriica Da Silva, Annual physical exam (Primary Dx); Medicine PATSY Encounter for surveillance of contracept hosea pills; [address] Elevated BP without diagnosis of hyperte nsion; [place], [place] Pap smear for cervical cancer screening; [phone] Screening for HIV (human immunodeficienc y virus); [phone] FH: malignant n eoplasm of thyroid; (Work) Need for lipid screening; [phone] Screening for d iabetes mellitus (Fax) Social [...] Instructions Patient InstructionsPatricia Da Silva PA-C - 12/28/2017 3:30 PM CDT Here [...] RN on behalf of Dr. Mei Waddell, Juvenile Corrections Officer [place] Cervical Cancer Screening and Management Patricia Da [...] really hard cardio. No supplements. Some soda. Band Edger History: : No obstetric history on file. LMP: No LMP recorded. Pap hx: Does patient have history of abnormal pap smear? no. Mammogram: N/A. Prev Med: Colonoscopy: N/A. Dexa: N/A. Past Medical, Family, Surgical and Social History, Drug allergies and Medications have been reviewedand updated in [facility] today. Review of Systems: The remainder [...] external genitalia and urethra, without lesions noted. [place], moist vaginal and cervical mucosa, without lesions. [...] - 12/28/2017 9:59 PM CDT Performed at [facility], [address] [place] [address] CLIA number [id number] Patricia Da Silva PA-C LAB_1 Performing Organization Address City/State/ZIP Code Phon e Number PN SOFT [address] [place] [address] HIV 1/2 Ag/Ab 4th Generation (12/28/2017 4:27 PM CDT) [facility] Time Signature HIV-1 p24 Ag Nonreactive Nonreactive PN SOFT and HIV-1/HIV-2 Ab Specimen Anatomical Collection Method Collection Time Receive d Time (Source) Location / / Volume Laterality 12/28/2017 4:27 PM 8 9:20 CDT PM CDT Narrative PN SOFT - 12/28/2017 10:11 PM CDT Performed at [facility], [address] [place] [address] CLIA number [id number] Patricia Da Silva PA-C LAB_1 Performing Organization Address City/[facility] Phon e Number PN SOFT [address] [place] [address] [phone] Complete Blood Count-No Diff (12/28/2017 4:27 PM [...] - 12/28/2017 4:29 PM CDT Performed at [facility], [facility] [place] [address] CLIA number [id number] Patricia Da Silva PA-C LAB_1 Performing Organization Address City/[facility] Phon e Number PN SOFT [address] [place] [address] [phone] Pap Smear (12/28/2017 3:51 PM CDT) Specimen (Source) Anatomical Collection Method Collection Time Re ceived Time Location / / Volume Laterality 12/28/2017 3:51 PM CDT Narrative PN SOFT - 01/02/2018 1:13 PM CDT FINAL GYNECOLOGICAL CYTOLOGY REPORT Pathology #: [id number] ?Date Obtained: 12/28/2017 ? Date Received: 12/29/2017 [...] false-negative report s may occur. Performed at [place] [address] [place] [address] Patricia Da Silva PA-C LAB_1 Performing Organization Address [facility] Phon e Number PN SOFT [address] [place] [address] Pap Test Order (12/28/2017 3:51 PM CDT) Analysis Performed At Patho logist Time Signature Pap Smear Collected PN SOFT Monolayer tracking test Specimen Anatomical Collection Method Collection Time Receive d Time (Source) Location / / Volume Laterality 12/28/2017 3:51 PM 8 4:08 CDT AM CDT Narrative PN SOFT - 12/28/2017 3:52 PM CDT Performed at [facility], [facility] [place] [address] CLIA number [id number] Patricia Da Silva PA-C LAB_1 Performing Organization Address [facility]/State/ZIP Code Phon e Number PN SOFT [address] [place] [address] documented in this encounter Visit Diagnoses Diagnosis [...] neoplasm documented in this encounter Care Teams Warehouse Hand Relationship Specialty Start Date End Date Patricia Da Silva PA-C PCP - General 10/13/15 [address] [place] [address] documented as of this encounter
--- OUTSIDE RECORDS SUMMARY | 2022-05-24 10:40 | XMS_ITS | Encounter Summary ---
:1990 Author Organization [facility] Address [address] [place] [address] Care Team Providers Name Role Phone Patricia Da Silva PA-C Primary Care Provider Encounter Details Date Type Department Care Team Description 06/02/2020 Immunization [place] [address] Flu Need for prophylactic Clinic vaccination and [address] [place] [address] influenza [phone] Social History Tobacco Use Types Packs/Day Years [...] influenza documented in this encounter Care Teams Licensed Appraiser Relationship Specialty Start Date End Date Patricia Da Silva PA-C PCP - General 10/13/[address] [place] [address] documented as of this encounter
--- OUTSIDE RECORDS SUMMARY | 2022-05-24 10:40 | XMS_ITS | Encounter Summary ---
:1990 Author Organization [employer] Address [address] [place] [address] Care Team Providers Name Role Phone Patricia Da Silva PA-C Primary Care Provider Reason for Visit Reason Comments Ear Pain left Encounter Details Date Type Department Care Team Description 09/14/2018 Office Visit [place] [facility] Luz Talbot, Roseanne ction of left eustachian tube (Primary Dx); Medicine DO Sinusitis, unspecified chronicity, unspe cified location [address] [address] [place] [address] [phone] Social History Tobacco Use Types Packs/Day Years [...] Comments Blood Pressure 156/108 09/14/2018 12:55 PM EGG TESTER Pulse 87 09/14/2018 12:55 PM EGG TESTER Temperature 37 ??C (98.6 ??F) 09/14/2018 12:52 PM EGG TESTER Respiratory Rate 16 09/14/2018 12:52 PM EGG TESTER Oxygen Saturation - - Inhaled Oxygen Concentration - - Weight 80.3 kg (177 lb) 09/14/2018 12:52 PM EGG TESTER Height 160 cm (5' 3) 09/14/2018 12:52 PM EGG TESTER Body Mass Index 31.35 09/14/2018 12:52 PM EGG TESTER documented in this encounter Patient Instructions Patient InstructionsKalyanikierramaki Addie ZamzamEAN - 09/14/2018 1:00 PM EGG TESTER Images from the original note were not [...] for dessert. Limit deep-fried vegetables, such as turkish fries. ? Choose lean protein, such as [...] that works best for you. ? For [facility], call [phone]. ? For [facility], call [phone]. ? For [facility] and [facility], call [phone]. ? For [facility] [place][note 2], call [phone]. ? For [facility], call [phone]. (11/2017) ??Formerly [facility] TESTER documented in this encounter Progress Notes Luz [...] days if not improving. Recheck elevated BP. TESTER documented in this encounter Plan of Treatment Not on filedocumented as of this encounter Visit Diagnoses Diagnosis Dysfunction of left eustachian tube - Pr imary Dysfunction of Eustachian tube Sinusitis, unspecified chronicity, unspe cified location documented in this encounter Care Teams Organizational Development Specialist Relationship Specialty Start Date End Date Patricia Da Silva PA-C PCP - General 10/13/15 [address] [place] [address] documented as of this encounter
--- OUTSIDE RECORDS SUMMARY | 2022-05-24 10:40 | XMS_ITS | Encounter Summary ---
:1990 Author Organization [facility] Address [address] [place] [address] Care Team Providers Name Role Phone Patricia Da Silva PA-C Primary Care Provider Reason for Visit Reason Comments Refill BLISOVI FE 1/20 1-20 MG-MCG tablet [Pharmacy Med Name: Blisovi FE 1/20 Oral Tablet 1-20 MG-MCG] Encounter Details Date Type Department Care Team Description 01/05/2021 Refill [place] [address] Family Patricia Da Silva R efill (BLISOVI FE 1/20 Medicine PA-C 1-20 MG-MCG tablet [address] [facility] [address] [place] [facility] [Pharmacy Med Name: [place], [place] [address] Blisovi FE 1/20 Oral [id number] Tablet 1-20 MG-MCG]) [phone] Social History Tobacco Use Types Packs/Day Years [...] Prov Query - 01/05/2021 4:23 PM CDT BLISOVI FE 1/20 1-20 MG-MCG tablet [...] 01/13/2021 (with PATRICIA DA SILVA) Powered by [employer], Reference: [id number], 01/05/2021 4:23:07 PM CDT, Pool:JUANA REFILL ([id number]) documented in this encounter Plan of Treatment Not on filedocumented as of this encounter Visit Diagnoses Diagnosis Encounter for surveillance of contracept hosea pills Surveillance of previously prescribed co ntraceptive pill documented in this encounter Care Teams Dinkey Operator Slag Relationship Specialty Start Date End Date Particia Da Silva PA-C PCP - General 10/13/15 [address] [place] [address] documented as of this encounter
--- OUTSIDE RECORDS SUMMARY | 2022-05-24 10:40 | XMS_ITS | Encounter Summary ---
:1990 Author Organization [facility] Address [address] [address] Care Team Providers Name Role Phone Patricia Da Silva PA-C Primary Care Provider Encounter Details Date Type Department Care Team Description 05/17/2018 Immunization [facility] Need for prophylactic [address] [place] [address] inoculation against [phone] influenza Social History Tobacco Use Types Packs/Day [...] influenza documented in this encounter Care Teams Engine Tester Relationship Specialty Start Date End Date Patricia Da Silva PA-C PCP - General 10/13/15 [address] [place] [address] documented as of this encounter
--- OUTSIDE RECORDS SUMMARY | 2022-05-24 10:40 | XMS_ITS | Encounter Summary ---
:1990 Author Organization [facility] Address [address], [place] [address] Care Team Providers Name Role Phone Patricia Da Silva PA-C Primary Care Provider Reason for Visit Reason Comments ANIMAL BITE--CAT--ED Encounter Details Date Type Department Care Team Description 11/07/2018 Nurse Triage [facility] Patricia Da Silva, ANIMAL BITE--CAT--ED Medicine [place] [address] [address] [place] [address] [phone] Social History Tobacco Use Types Packs/Day Years [...] unprovoked bite, developing country) Protocols used: ANIMAL [id number] Patient notes a stray cat scratched her [...] on filedocumented in this encounter Care Teams Loft Worker Relationship Specialty Start Date End Date Patricia Da Silva, RADHAC PCP - General 10/13/15 [address] [place] [address] documented as of this encounter
--- OUTSIDE RECORDS SUMMARY | 2022-05-24 10:40 | XMS_ITS | Encounter Summary ---
:1990 Author Organization [employer] Address [address] [place] [address] Care Team Providers Name Role Phone Patricia Da Silva PA-C Primary Care Provider Reason for Visit Reason Comments Concerns Encounter Details Date Type Department Care Team Description 09/01/2021 Nurse Triage [facility] Line Patricia Da Silva, Concerns [address] [facility] PAT[address] [address] [place], [place] [address] [place] [address] (Wo rk) Social History Tobacco Use [...] - ABDOMINAL PAIN LESS THAN 20 WEEKS [id number] Patient calling 4.5 weeks with concerns about [...] list reviewed as related to this call. SUPPORT ENGINEER Vikki Orozco RN - 09/01/2021 7:08 AM CST Reason for Disposition ? ? [1] Constant abdominal pain AND [2] present > 2 hours Protocols used: - ABDOMINAL PAIN LESS THAN 20 WEEKS [id number] Patient calling. States she found out she was 08/24. Noticed yesterday she started to have some abdominal pain and cramping. States the pain became more constant at 3am this morning and sometimes sharp. Reports the pain is on her lower right side. Rates the pain 12/18. States she is passing some blood when she goes to the bathroom. Has not taken any Tylenol. PNNL advised to be seen within the next 4 hours. Urgently sooner in the ER if pain becomes severe. Agrees with plan. Will call OBGYN forpossible appointment this morning, otherwise will go to the ER. Problem list reviewed as related to this call. SUPPORT ENGINEER documented in this encounter Plan of Treatment Not on filedocumented as of this encounter Visit Diagnoses Not on filedocumented in this encounter Care Teams Travel Ot Relationship Specialty Start Date End Date Patricia Da Silva PA-C PCP - General 10/13/15 [address] [place] [address] documented as of this encounter
--- OUTSIDE RECORDS SUMMARY | 2022-05-24 10:41 | XMS_ITS | Encounter Summary ---
:1990 Author Organization [employer] Address [address] [place] [address] Care Team Providers Name Role Phone Patricia Da Silva PA-C Primary Care Provider Reason for Visit Reason Comments Sinus Problem Encounter Details Date Type Department Care Team Description 06/28/2017 Office Visit [place] [facility] Kelly Deng, DO Sinusitis, unspecified chronicity, unspe cified location (Primary Dx); Medicine [address] [facility] Elevated BP without diagnosi s of hypertension [address] [place] [id number] Social History Tobacco Use Types Packs/Day Years [...] Comments Blood Pressure 143/106 06/28/2017 1:43 PM CRYSTALIZER Pulse 96 06/28/2017 1:43 PM CRYSTALIZER Temperature - - Respiratory Rate 16 06/28/2017 1:33 PM CRYSTALIZER Oxygen Saturation - - Inhaled Oxygen Concentration - - Weight 74.8 kg (165 lb) 06/28/2017 1:33 PM CRYSTALIZER Height 160 cm (5' 3) 06/28/2017 1:33 PM CRYSTALIZER Body Mass Index 29.23 06/28/2017 1:33 PM CRYSTALIZER documented in this encounter Progress Notes Kelly Deng, DO - 06/28/2017 1:30 PM CST IMPRESSION: [...] x 1. ?? Medication:Updated and Reviewed in [facility], please see medication list. ?? ALLERGY: No [...] 5' 3 (160 cm) Wt 165 lb (16777 g) BMI 29.23 kg/m2 Estimated body mass index is 29.23 kg/(m^2) as calculated from the following: Height as of this encounter: 5' 3 (160 cm). Weight as of this encounter: 165 lb (45518 g). General: 27 y.o. female WD WN [...] voice recognition software and maycontain typographic errors. TALIZER documented in this encounter Plan of Treatment Not on filedocumented as of this encounter Visit Diagnoses Diagnosis Sinusitis, unspecified chronicity, unspe cified location - Primary Elevated BP without diagnosis of hyperte nsion documented in this encounter Care Teams Cardiovascular Surgical Tech Relationship Specialty Start Date End Date Patricia Da Silva PA-C PCP - General 10/13/15 [address] [place] [address] documented as of this encounter
--- OUTSIDE RECORDS SUMMARY | 2022-05-24 10:41 | XMS_ITS | Encounter Summary ---
:1990 Author Organization [employer] Address [address] [address] Care Team Providers Name Role Phone Patricia Da Silva PA-C Primary Care Provider Reason for Visit Reason Comments Urinary Frequency Encounter Details Date Type Department Care Team Description 02/23/2017 Office Visit [place] [facility] UrmilaDejuan munoz, Urinary frequency Medicine (Primary Dx) [address] [address] [place] [address] [phone] Social History Tobacco Use Types Packs/Day Years [...] Years of education: N/A Occupational History ??? 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 [...] Hold for Culture (02/23/2017 3:03 PM CDT) [facility] Method Time Signature Urine Type URINE:clean PN [...] U Specific 1.020 1.005 - PN SOFT [place] 1.030 Urobilinogen Negative Negative PN SOFT Urine Eu/dL Turbidity Clear Clear PN SOFT Color Yellow PN SOFT Specimen (Source) Anatomical Collection Method Collection Time Re ceived Time Location / / Volume Laterality Urine: 02/23/2017 3:03 PM CDT Narrative PN SOFT - 02/23/2017 3:32 PM CDT Performed at [facility], [facility] [place] [address] CLIA number [id number] Dejuan Kearns MD LAB_1 Performing Organization Address City/State/ZIP Code Phon e Number PN SOFT [address] [place] [address] documented in this encounter Visit Diagnoses Diagnosis Urinary frequency - Primary Urinary frequency documented in this encounter Care Teams Senior Sales Assistant Relationship Specialty Start Date End Date Patricia Da Silva PA-C PCP - General 10/13/15 [address] [place] [address] documented as of this encounter
--- OUTSIDE RECORDS SUMMARY | 2022-05-24 10:41 | XMS_ITS | Encounter Summary ---
:1990 Author Organization [email or web address] Address [address] [place] [address] Care Team Providers Name Role Phone Patricia Da Silva PA-C Primary Care Provider Reason for Visit Reason Comments Refill TRI-SPRINTEC 0.18/0.215/0.25 MG-35 MCG tablet [Pharmacy Med Name: Tri-Sprintec Oral Tablet 0.18/0.215/0.25 MG-35 MCG] Encounter Details Date Type Department Care Team Description 09/03/2017 Refill [place] [facility] Patricia Da Silva, Refill (TRI-SPRINTEC Medicine PATSY 0.18/0.215/0.25 MG-35 [address] MCG tablet [Pharmacy Med [place], [place] [address] Name: Tri-Sprintec Oral [id number] Tablet 0.18/0.215/0.25 [id number] MG-35 MCG ]) Social History Tobacco Use [...] 09/06/2017 5:53 PM CST MYCHART Letter Sent 1ST GRADE TEACHER Elva Blair RN - 09/05/2017 5:46 PM CST OFFICE APPOINTMENT NEEDED Please notify patient to schedule an appointment within 30 days. Requested Prescriptions Pending Prescriptions Disp Refills TRI-SPRINTEC 0.18/0.215/0.25 MG-35 MCG tablet [Pharmacy Med Name: Tri-Sprintec Oral Tablet 0.18/0.215/0.25 MG-35 MCG] 84 Tab 0 Sig: TAKE ONE TABLET BY MOUTH EVERY DAY 1ST GRADE TEACHER Interface, Out Surescripts Prov Query - 09/03/2017 11:37 AM [...] 106 mm Hg on 06/28/2017 Powered by [employer] [place], Reference: [id number], 09/03/2017 11:37:07 AM Yan [place]: JUANA GUERRERO ([id number]) 1ST GRADE TEACHER documented in this encounter Plan of Treatment Not on filedocumented as of this encounter Visit Diagnoses Diagnosis Encounter for surveillance of contracept hosea pills Surveillance of previously prescribed co ntraceptive pill documented in this encounter Care Teams Cadastral Engineer Relationship Specialty Start Date End Date Patricia Da Silva PA-C PCP - General 10/13/15 [address] [place] [address] documented as of this encounter
--- OUTSIDE RECORDS SUMMARY | 2022-05-24 10:41 | XMS_ITS | Encounter Summary ---
:1990 Author Organization [facility] Address [address] [place] [address] Care Team Providers Name Role Phone Patricia Da Silva PA-C Primary Care Provider Encounter Details Date Type Department Care Team Description 05/19/2016 Immunization [facility] Need for prophylactic [address] [place] [address] inoculation against [phone] influenza (Prim zofia Dx) Social History Tobacco Use Types Packs/Day Years Used Date Smoking Tobacco: Never Assessed Sex Assigned at Date Recorded Not on file documented as of this encounter Plan of Treatment Not on filedocumented as of this encounter Visit Diagnoses Diagnosis Need for prophylactic vaccination and in oculation against influenza - Primary documented in this encounter Care Teams Health Physics Technician Relationship Specialty Start Date End Date Patricia Da Silva PA-C PCP - General 10/13/15 [address] [place] [address] documented as of this encounter
--- OUTSIDE RECORDS SUMMARY | 2022-05-24 10:41 | XMS_ITS | Encounter Summary ---
:1990 Author Organization [employer] Address [address] [place] [address] Care Team Providers Name Role Phone Patricia Da Silva PA-C Primary Care Provider Reason for Visit Reason Comments Pharmacy Encounter Details Date Type Department Care Team Description 06/28/2017 Telephone [facility] Patricia Hernandez PA-C Pharmacy [address] [place] [address] [place] [id number] [place] [address] [phone] (Wo rk) Social History Tobacco Use Types [...] one prescribed by Dr. Deng. He agreed. [place] HUSBANDRY TEACHER America Davis - 06/28/2017 2:10 PM CST [facility] calling requesting to speak to nurse regarding Rx prescrbed today. Regarding augmentin.Transfer [place] HUSBANDRY TEACHER documented in this encounter Plan of Treatment Not on filedocumented as of this encounter Visit Diagnoses Not on filedocumented in this encounter Care Teams Product Picker Relationship Specialty Start Date End Date Patricia Da Silva PA-C PCP - General 10/13/15 [address] [place] [address] documented as of this encounter
--- OUTSIDE RECORDS SUMMARY | 2022-05-24 10:41 | XMS_ITS | Encounter Summary ---
:1990 Author Organization [employer] Address [address] [place] [address] Care Team Providers Name Role Phone Patricia Da Silva PA-C Primary Care Provider Reason for Visit Reason Comments Refill TRI-SPRINTEC 0.18/0.215/0.25 MG-35 MCG tablet [Pharmacy Med Name: Tri-Sprintec Oral Tablet 0.18/0.215/0.25 MG-35 MCG] Encounter Details Date Type Department Care Team Description 06/09/2017 Refill [place] [facility] Patricia Da Silva, Refill (TRI-SPRINTEC Medicine PATSY 0.18/0.215/0.25 MG-35 [address] MCG tablet [Pharmacy Med [place], [place] [address] Name: Tri-Sprintec Oral [id number] Tablet 0.18/0.215/0.25 [id number] MG-35 MCG ]) Social History Tobacco Use Types Packs/Day Years Used Date Smoking Tobacco: Former Cigarettes Quit : 07/09/2012 Smokeless Tobacco: Never Alcohol Use Standard Drinks/Week Comments Yes 2 (1 standard drink = 0.6 oz pure alcoho l) 2-3 drinks per week. Sex Assigned at Date Recorded Not on file documented as of this encounter Nursing Notes Interface, Out Surescripts Prov Query - 06/09/2017 10:28 AM CST [...] 70 mm Hg on 02/23/2017 Powered by [employer], Reference: [id number], 06/09/2017 10:28:55 AM NETWORK COMMUNICATIONS ENGINEERYan: JUANA REFILL ([id number]) ORK COMMUNICATIONS ENGINEER documented in this encounter Plan of Treatment Not on filedocumented as of this encounter Visit Diagnoses Diagnosis Encounter for surveillance of contracept hosea pills Surveillance of previously prescribed co ntraceptive pill documented in this encounter Care Teams Cartridge Assembler Relationship Specialty Start Date End Date Patricia Da Silva PA-C PCP - General 10/13/15 [address] [place] [address] documented as of this encounter
--- OUTSIDE RECORDS SUMMARY | 2022-05-24 10:41 | XMS_ITS | Encounter Summary ---
:1990 Author Organization [employer] Address [address] [place] [address] Care Team Providers Name Role Phone Patricia Da Silva PA-C Primary Care Provider Encounter Details Date Type Department Care Team Description 02/23/2017 Lab Visit [facility] Urinary frequency [address] [place] [address] Social History Tobacco Use [...] (ABNORMAL) Urine Microscopic (02/23/2017 3:12 PM CDT) [facility] Method Time Signature Urine WBC 10-24 (A) [...] - 02/23/2017 4:59 PM CDT Performed at [facility], [address] [place] [address] CLIA number [id number] Dejuan Kearns MD LAB_1 Performing Organization Address City/State/ZIP Code Phon e Number PN SOFT [address] [place] [address] (ABNORMAL) Urine Culture (02/23/2017 3:12 PM CDT) [facility] gist Method Time Signature Source Urine PN SOFT [...] - 02/25/2017 9:40 AM CDT Performed at [facility], [address] [place] [address], CLIA Number [id number] Organism Antibiotic Method Susceptibility Escherichia coli Amikacin [...] Dejuan Kearns MD LAB_1 Performing Organization Address [facility] Phon e Number PN SOFT [address] [place] [address] (ABNORMAL) UR NPT Hold for Culture (02/23/2017 3:03 PM CDT) [facility] Method Time Signature Urine Type URINE:clean PN [...] U Specific 1.020 1.005 - PN SOFT [place] 1.030 Urobilinogen Negative Negative PN SOFT Urine Eu/dL Turbidity Clear Clear PN SOFT Color Yellow PN SOFT Specimen (Source) Anatomical Collection Method Collection Time Re ceived Time Location / / Volume Laterality Urine: 02/23/2017 3:03 PM CDT Narrative PN SOFT - 02/23/2017 3:32 PM CDT Performed at [facility], [address] [place] [address] CLIA number [id number] Dejuan Kearns MD LAB_1 Performing Organization Address [facility] Phon e Number PN SOFT [address] [place] [address] documented in this encounter Visit Diagnoses Diagnosis Urinary frequency documented in this encounter Care Teams Customer Care Professional Relationship Specialty Start Date End Date Patricia Da Silva PA-C PCP - General 10/13/15 [address] [place] [address] documented as of this encounter
--- OUTSIDE RECORDS SUMMARY | 2022-05-24 10:41 | XMS_ITS | Encounter Summary ---
:1990 Author Organization [employer] Address [address], [place] [address] Care Team Providers Name Role Phone Patricia Da Silva PA-C Primary Care Provider Reason for Visit Reason Comments Period Problems 3 weeks Encounter Details Date Type Department Care Team Description 10/05/2016 Office Visit [facility] [facility] Patricia Da Silva, [place] Medicine PATSY vásquez (Primary Dx) [address] [facility] [address] [place] [address] [phone] Social History Tobacco Use Types Packs/Day Years [...] Allergies and Medications reviewed and updated in [facility] today. Review of Systems: Review of systems [...] Metrorrhagia documented in this encounter Care Teams Ecmo Specialist Relationship Specialty Start Date End Date Patricia Da Silva PA-C PCP - General 10/13/15 [address] [place] [address] documented as of this encounter
--- OUTSIDE RECORDS SUMMARY | 2022-05-24 10:41 | XMS_ITS | Encounter Summary ---
:1990 Author Organization [employer] Address [address] [facility] [place] [address] Care Team Providers Name Role Phone Patricia Da Silva PA-C Primary Care Provider Encounter Details Date Type Department Care Team Description 08/15/2017 E-Visit [place] Patricia Da Silva, Dx: Uri nary tract Medicine PATSY infection [place] [address] hematuria, site [place], [place] [address] unspecified (Primary [id number] Dx) [phone] Social History Tobacco Use Types Packs/Day Years Used Date Smoking Tobacco: Former Cigarettes Quit : 07/09/2012 Smokeless Tobacco: Never Alcohol Use Standard Drinks/Week Comments Yes 2 (1 standard drink = 0.6 oz pure alcoho l) 2-3 drinks per week. Sex Assigned at Date Recorded Not on file documented as of this encounter Nursing Notes Patricia Da Silva PA-C - 08/17/2017 11:22 AM DIGITAL MARKETING CONSULTANT From: Binta Golden Mckeon Sent: 08/15/2017 4:44 PM DIGITAL MARKETING CONSULTANT Subject: E-Visit Submission: Bladder infection E-Visit Submission: [...] disease) Answer: No Question: Are you a penitentiary or extended care patient? Answer: No Question: [...] the pharmacy where you would like to rock picker your medication. Answer: [facility] pharmacy on [facility] Question: What medication allergies do you have? Answer: None Question: Please provide a phone number where you can be reached if we need to call you. Answer: [phone] TAL MARKETING CONSULTANT documented in this encounter Plan of Treatment Not on filedocumented as of this encounter Visit Diagnoses Diagnosis Urinary tract infection without hematuri a, site unspecified - Primary documented in this encounter Care Teams Document Examiner Relationship Specialty Start Date End Date Patricia Da Silva PA-C PCP - General 10/13/15 [address] [place] [address] documented as of this encounter
--- OUTSIDE RECORDS SUMMARY | 2022-05-24 10:41 | XMS_ITS | Encounter Summary ---
:1990 Author Organization [employer] Address [address] [place] [address] Care Team Providers Name Role Phone Patricia Da Silva PA-C Primary Care Provider Reason for Visit Reason Comments MEDICATION CHECK Encounter Details Date Type Department Care Team Description 07/09/2016 Office Visit [place] [facility] Patricia Da Silva [facility] [place] [address] [address] [address] [facility] contraceptive pills [place], [place] (Primary Dx) [address] [phone] Social History Tobacco Use Types Packs/Day Years [...] Comments Blood Pressure 112/62 07/09/2016 2:35 PM ORTHOPEDIC BRACE MAKER Pulse - - Temperature - - Respiratory Rate - - Oxygen Saturation - - Inhaled Oxygen Concentration - - Weight 67.1 kg (148 lb) 07/09/2016 2:35 PM ORTHOPEDIC BRACE MAKER Height - - Body Mass Index - - documented in this encounter Progress Notes Patricia Da Silva PA-C - 07/09/2016 2:48 PM CST Clinic Visit SUBJECTIVE: CC: Chief Complaint Patient presents with ??? MEDICATION CHECK History of Present Illness: Pt is here today to get an OCP refill. She switched to [facility] from [facility], she is new here. She is up to date on her pap and physical. See care everywhere [facility] notes. She is healthy with no medical issues today, just wants her OCP. PMH, Allergies, Family, Social, Surgical and Medications reviewed and updated in [facility] today. Review of Systems: Review of systems [...] prn and yearly for annual exams. [facility] OPEDIC BRACE MAKER documented in this encounter Plan of Treatment Not on filedocumented as of this encounter Visit Diagnoses Diagnosis Encounter for surveillance of contracept hosea pills - Primary Surveillance of previously prescribed co ntraceptive pill documented in this encounter Care Teams Conductor And Engineer Relationship Specialty Start Date End Date Patricia Da Silva PA-C PCP - General 10/13/15 [address] [place] [address] documented as of this encounter
--- OUTSIDE RECORDS SUMMARY | 2022-05-24 10:41 | XMS_ITS | Encounter Summary ---
:1990 Author Organization [facility] Address [address] [place] [address] Care Team Providers Name Role Phone Patricia Da Silva PA-C Primary Care Provider Encounter Details Date Type Department Care Team Description 05/16/2017 Immunization [facility] Need for prophylactic [address] [place] [address] inoculation against [phone] influenza Social History Tobacco Use Types Packs/Day [...] influenza documented in this encounter Care Teams Mobile Paint Specialist Relationship Specialty Start Date End Date Patricia Da Silva PA-C PCP - General 10/13/15 [address] [place], [place] [id number] documented as of this encounter
--- OUTSIDE RECORDS SUMMARY | 2022-05-24 10:41 | XMS_ITS | Encounter Summary ---
:1990 Author Organization [employer] Address [address] [place] [address] Care Team Providers Name Role Phone Patricia Da Silva PA-C Primary Care Provider Reason for Visit Reason Comments Ear Pain Encounter Details Date Type Department Care Team Description 06/14/2017 Office Visit [facility] [facility] Kelly Deng DO Otalgia of right ear (Primary Dx); Medicine [address] [facility] Acute upper respiratory infe ction [address] [place] [address] [phone] (Wo rk) Social History Tobacco Use Types [...] - - Pulse 70 06/14/2017 4:30 PM FASHION JOURNALIST Temperature 37.1 ??C (98.7 ??F) 06/14/2017 4:30 PM FASHION JOURNALIST Respiratory Rate - - Oxygen Saturation - - Inhaled Oxygen Concentration - - Weight 74.8 kg (165 lb) 06/14/2017 4:30 PM FASHION JOURNALIST Height - - Body Mass Index 27.46 02/23/2017 2:54 PM CDT documented in this encounter Progress Notes Kelly Deng DO - 06/14/2017 4:30 PM CST IMPRESSION: 1. [...] x 1. ?? Medication:Updated and Reviewed in [employer], please see medication list. ?? ALLERGY: No [...] ??F (37.1 ??C) (Oral) Wt 165 lb (93782 g) BMI 27.46 kg/m2 Estimated body mass index is 27.46 kg/(m^2) as calculated from the following: Height as of 02/23/17: 5' 5 (165.1 cm). Weight as of this encounter: 165 lb (78938 g). General: 27 y.o. female WD WN [...] voice recognition software and maycontain typographic errors. ION JOURNALIST documented in this encounter Plan of Treatment Not on filedocumented as of this encounter Visit Diagnoses Diagnosis Otalgia of right ear - Primary Otalgia, unspecified Acute upper respiratory infection Acute upper respiratory infections of un specified site documented in this encounter Care Teams Gastroenterology Nurse Practitioner Relationship Specialty Start Date End Date Patricia Da Silva PA-C PCP - General 10/13/15 [address] [place] [address] documented as of this encounter
--- OUTSIDE RECORDS SUMMARY | 2022-05-24 10:41 | XMS_ITS | Encounter Summary ---
:1990 Author Organization [facility] Address [address] [place] [address] Care Team Providers Name Role Phone Unassigned, Provider Primary Care Provider Unavailable Encounter Details Date Type Department Care Team Description 06/18/2015 Immunization [facility] Need for influenza [address] vaccination (Primary Dx) [place] [address] Social History Tobacco Use Types Packs/Day Years Used Date Smoking Tobacco: Never Assessed Sex Assigned at Date Recorded Not on file documented as of this encounter Plan of Treatment Not on filedocumented as of this encounter Visit Diagnoses Diagnosis Need for influenza vaccination - Primary Need for prophylactic vaccination and in oculation against influenza documented in this encounter Care Teams Telecommunication Operator Relationship Specialty Start Date End Date Unassigned, Provider PCP - General 05/18/00 10/12/[address] [place] [address] documented as of this encounter
[2022-05-25 13:53] LABS: Strep B DNA Probe NEGATIVE (Negative)
[2022-05-26 18:32] LABS: Strep B Pen/Amox Allergy No
== END 2022-05-24 10:39 | disposition home or self-care (01) ==
LOC: NFLDREF 10:38
PROVIDERS: Visit Provider Obstetrics & Gynecology
DX: Z34.93 Encounter for supervision of normal pregnancy, unspecified, third trimester (principal); Z3A.36 36 weeks gestation of pregnancy
CPT/HCPCS: 87081; 87653

== ENCOUNTER 2022-06-10 05:02 | Inpatient (IN) | payer BC, SELFPAY ==
[2022-06-10] VITALS (31 sets, daily range): BP systolic 96–121; BP diastolic 55–78; PULSE 54–84; RESP 16; TEMP 36.3–36.9; O2SAT 97–100; BMI 30.4
[2022-06-10] MEDS: LACTATED RINGERS 1000 ML 1,000 ML IV ×2 (05:54→06:55)
[2022-06-10 06:01] LABS: SARS PCR* Negative SARS-CoV-2 (Negative)
[2022-06-10 06:14] LABS: Hemoglobin* 10.6 gm/dL (12.0-16.0)
[2022-06-10 06:40] LABS: Basophils Absolute Auto 0.03 K/uL (0.00-0.30); Basophils Percent Auto 0.3 % (0.0-3.0); Eosinophils Percent Auto 0.9 % (0.0-7.0); Hematocrit 31.8 % (33.0-51.0); Hemoglobin* 10.5 gm/dL (12.0-16.0); Immature Granulocytes Abs Auto 0.12 K/uL (0.00-0.30); Immature Granulocytes Pct Auto 1.1 %; Lymphocytes Percent Auto 19.9 % (20-44); Mean Corpuscular HGB Conc 33 gm/dL (32-36); Mean Corpuscular Hemoglobin 31 pg (26-34); Mean Corpuscular Volume 94 fL (80-100); Monocytes Percent Auto 7.4 % (0.0-11.0); Neutrophils Absolute Auto 7.66 K/uL (1.7-7.0); Neutrophils Percent Auto 70.4 % (42.0-72.0); Platelet Count* 292 K/uL (140-440); RDW Coefficient of Variation % 12.7 % (11.5-15.5); Red Blood Count 3.37 m/uL (4.00-5.20); White Blood Count* 10.87 K/uL (4.50-11.00)
[2022-06-10 06:43] LABS: Slide Review Reflex No
[2022-06-10] MEDS: CEFAZOLIN 2 GM in 0.9 % SODIUM CHLORIDE Mini-bag 100 ML IVPB (07:20)
--- NOTE | 2022-06-10 08:08 | SUR.OPER ---
DR. ISAAC STATED SHE DOES NOT WANT THE PLACENTA SENT.
--- NOTE | 2022-06-10 08:58 | P.LDBA_ITS ---
Subjective History of Present Illness Date Seen: 06/10/22 Narrative: Patient is being admitted to Labor and Delivery for repeat delivery. She is a 32 year old -0-1-1 woman at 39 weeks, 1 day gestation by 1st trimester ultrasound, DEREK 06/16/2022. OB Problem List: Spouse: Gerson Meier,? 01/01/22. Daughter:Leela Charles (10yo). Baby: Girl! 1.? Previous for distress in 2011, deeply impacted head.? Hematoma noted on entry.? Desires repeat . 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 Intraoperative findings were notable for uterus solidly adherent to the anterior abdominal wall along its entire anterior surface, extending to the fundus.? 2.? History of right tubal , s/p right fimbriectomy 09/01/[address] Kunz.? Intraoperative findings as above.? 2.? Anemia at 28 weeks, Hb 10.7.? Iron supplement daily.? Repeat at 36 weeks:? 11.1 Her full history and physical was dictated 05/24/[address] Kunz. Please see this for details. 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 Intraoperative findings were notable for uterus solidly adherent to the anterior abdominal wall along its entire anterior surface, extending to the fundus. Status: Acute Delivery/Labor/Induction Plan Plan: Section
--- NOTE | 2022-06-10 09:17 | W.PM.NB ---
Nerve Block Nerve Block Time Seen by Provider: 09:15 Date Seen: 06/10/22 Type of block requested by surgeon for post-operative analgesia: TAP Side: bilateral Time out performed: Yes Verification of patient name: Yes Verification of date of : Yes Site marking: site marked Name of person performing procedure: René Continuous monitoring Was continuous monitoring of O2 sat, B/P, satellite project site monitor, recorded every 15 minutes?: Yes Procedure Checklist: sterile prep, needles and gloves Ultrasound guided. Images saved: Yes Medications given in 5ml increments after negative aspiration: Marcaine %: 0.25 mL: 30 Needle gauge: 20 and Exparel mL: 10 Patient tolerated procedure well: Yes Additional comments: Needle noted adjacent to nerve Block Charges Block Charge (with Pro Fee): TAP Bilateral Use of Ultrasound Machine for Block: Yes- US Guidance/pain block
--- NOTE | 2022-06-10 09:18 | P.OBPRC_ITS ---
Procedure Pre-op/Post-op diagnoses: Pre-Op/Post-Op Diagnoses Operation Date: 06/10/22 07:00 <No data on this case meets the specified criteria> Procedure Done: Global Procedure Details: Procedures Operation Date: 06/10/22 07:00 Actual Procedure Side Surgeon p repeat Section Consuelo Kunz MD Narrative: PREOPERATIVE DIAGNOSIS: 39 weeks, 1 day gestation Previous delivery, desires repeat Pelvic adhesions noted on previous laparoscopy POSTOPERATIVE DIAGNOSIS: 39 weeks, 1 day gestation Previous delivery, desires repeat Pelvic adhesions noted on previous laparoscopy PROCEDURE: Repeat low-transverse section with lysis of adhesion SURGEON: Consuelo Kunz MD MICROBIOLOGY QUALITY CONTROL TECHNICIAN: Tequila Higginbotham CRNA ANESTHESIA: Spinal IV FLUIDS: 1100 mL crystalloid QBL: 1020 mL FINDINGS: 1. Female , cephalic presentation, Apgars of 8 and 9, weight pending at time of this dictation 2. Anterior lower urine segment was completely adherent to anterior abdominal wall, with no distinct serosa in this region and multiple serosal adhesions. Right fimbria surgically absent. Slight adhesions of distal left fallopian tube to left ovary. Otherwise normal appearance of left tube and bilateral ovaries. COMPLICATIONS: Intraoperative hemorrhage of 1020 mL secondary to bleeding from extensive adhesions PROCEDURE IN DETAIL: Patient was taken to the operating room with IV running. She received cefazolin in preoperative prophylaxis. Spinal anesthesia was administered. Meyer catheter was inserted. She was prepped and draped in the usual sterile fashion. Anesthesia was tested and found to be adequate. A low-transverse skin incision was made with a scalpel and carried through to the underlying layer of fascia with the scalpel. The subcutaneous fat was dissected off the underlying fascia with Bovie. The fascia was nicked in the midline with a scalpel, and this incision was extended laterally with scissors. The rectus muscles were in the midline near the superior aspect of the incision. Peritoneum was identified and entered bluntly superiorly. Adhesions were encountered of the uterus to anterior abdominal wall just beneath the site of peritoneal entry. First, the rectus muscles were dissected apart in the midline inferiorly with scalpel. Dense serosal adhesions to the anterior abdominal wall were interrupted, exposing raw deserosalized myometrium beneath this. After further release of serosal adhesions laterally from the anterior abdominal wall, the bladder reflection was made visible. The extent of adhesions did not allow for placement of Kei O retractor. Therefore, bladder blade was placed and hysterotomy was performed well above the bladder reflection. Low-transverse uterine incision was made with a scalpel. Incision was widened bluntly. The 's head was grasped through the hysterotomy and delivered with the help of fundal pressure. The remainder of the body delivered without incident. Cord was clamped and cut after 30 seconds. Infant was handed off to attending nurses. The placenta was delivered with traction on the disc, which was partially extruded. The uterus was cleaned of all clots and debris with the dry lap pad. The hysterotomy was reapproximated with 0 Vicryl in a running, locked fashion. The uterus was exteriorized to aid in further adhesion lysis and placement of imbricating layer of hysterotomy closure. Second layer of the same suture was used in imbricating fashion. Numerous [id number] sutures of both 4 0 Vicryl and 2-0 chromic were required to obtain hemostasis around the hysterotomy and around the interrupted serosa. Portions of the interrupted serosa we reapproximated superior to the hysterotomy. This still left substantial areas of raw myometrium inferiorly. The adnexa were examined with findings as noted above. The uterus was returned to the abdomen. The hysterotomy was reexamined and found to be hemostatic. Seprafilm was placed above the lower uterine segment, and an errant reflection of lysed serosal adhesions and peritoneum adjacent to the bladder was placed loosely over this. Erant remaining peritoneum was brought together superiorly in two interrupted sutures. The rectus was loosely reapproximated inferior to this with interrupted sutures of 0 chromic. The rectus muscles were examined and found to be hemostatic. The fascia was reapproximated with 0 Vicryl in a running fashion. Subcutaneous fat was irrigated and found to be hemostatic. The subcutaneous fat was reapproximated with 2 0 plain gut suture in an interrupted fashion. The skin was closed with a subcuticular stitch of 4-0 Vicryl. Surgical glue was applied above this. Patient tolerated procedure well was taken to recovery area in stable condition.
--- NOTE | 2022-06-10 09:24 | W.ANESCHARGE ---
Anesthesia Charges Start Date/Time Anesthesia Start Date: 06/10/22 Anesthesia Start Time: 07:14 Stop Date/Time Anesthesia Stop Date: 06/10/22 Anesthesia Stop Time: 09:19 Summary Emergency: No
--- NOTE | 2022-06-10 10:57 | W.ANESCHARGE ---
Anesthesia Charges Start Date/Time Anesthesia Start Date: 06/10/22 Anesthesia Start Time: 07:14 Stop Date/Time Anesthesia Stop Date: 06/10/22 Anesthesia Stop Time: 09:19 Summary Emergency: No
[2022-06-10 13:39] LABS: Basophils Percent Auto 0.1 % (0.0-3.0); Hematocrit 31.5 % (33.0-51.0); Hemoglobin* 10.6 gm/dL (12.0-16.0); Immature Granulocytes Pct Auto 0.4 %; Lymphocytes Percent Auto 6.8 % (20-44); Mean Corpuscular HGB Conc 34 gm/dL (32-36); Mean Corpuscular Hemoglobin 32 pg (26-34); Mean Corpuscular Volume 94 fL (80-100); Monocytes Percent Auto 4.6 % (0.0-11.0); Neutrophils Percent Auto 88.1 % (42.0-72.0); Platelet Count* 307 K/uL (140-440); RDW Coefficient of Variation % 12.7 % (11.5-15.5); Red Blood Count 3.35 m/uL (4.00-5.20)
[2022-06-10 13:43] LABS: Slide Review Reflex No
[2022-06-10] MEDS: KETOROLAC 30 MG/ML inj IVP ×2 (14:47→20:57)
[2022-06-11] VITALS (12 sets, daily range): BP systolic 113–133; BP diastolic 54–78; PULSE 77–96; RESP 16–18; TEMP 36.6–37.1; O2SAT 96–100
[2022-06-11] MEDS: KETOROLAC 30 MG/ML inj IVP ×3 (02:39→16:48)
[2022-06-11 07:59] LABS: Hemoglobin* 9.2 gm/dL (12.0-16.0)
[2022-06-11] MEDS: DOCUSATE SODIUM 100 MG CAPSULE PO (10:21)
--- NOTE | 2022-06-11 10:57 | PM.OBPNCS1 ---
OB - PN: A/P Assessment and Plan (1) Previous delivery affecting : Problem details: s/p laparoscopy with excision of right tubal fimbria on 09/01/21. Intraoperative findings were notable for uterus solidly adherent to the anterior abdominal wall along its entire anterior surface, extending to the fundus. Status: Inactive (2) care and examination immediately after delivery: Status: Acute (3) Lactating mother: Status: Acute (4) Anemia due to acute blood loss: Status: Acute (5) S/P repeat low transverse : Status: Acute Plan day: 1 Plan: routine postop care Comments: May see if desired. Anticipate discharge tomorrow. Continue iron supplement for anemia related to blood loss. OB - PN: Subj Subjective Date Seen: 06/11/22 Patient comments: no complaints Narrative: Binta is a at 39 1/7 weeks gestation that presented to the center 06/10/2022 for a repeat cesearean section. The patient feels well.? The pain is well controlled with current medications.? She has no new complaints.? Urinary output is adequate and she is voiding without difficulty.? Has a good appetite, is tolerating a general diet, is passing flatus, and has had a bowel movement.? Has small amount of rubra lochia.? She is ambulating well. She is and reports it is going well.? OB - PN: Obj Exam Physical Exam: Vital signs: Temp Pulse Resp BP Pulse Ox O2 Del Method 98.5 F 93 18 124/77 96 06/11/22 08:50 06/11/22 08:50 06/11/22 08:50 06/11/22 08:50 06/11/22 08:50 06/11/22 08:50 Constitutional: Constitutional: no acute distress and cooperative Routine Respiratory Exam: Respiratory: Present CTA bilaterally Routine Cardiovascular Exam: Cardiovascular: Present RRR Routine Abdominal Exam: Abdominal: Present soft Fundus: Present firm Routine Exam: Comments: Mild edema present. Routine Extremities Exam: Extremities: Present full ROM and normal inspection Routine Psychiatric Exam: Psychiatric: Present normal affect and cooperative Wound Management: Method: adhesive Comments: Lower abdominal transverse incision: Glue clean, dry, and intact. Well approximated. Urinary Catheter Management: Urethral: Cath placed during this visit: yes, but has since been removed by the nurse Urethral indwelling: No Reason for continuing: decision to DC catheter Insertion date: 06/10/22 Insertion time: 07:29 Removal date: 06/11/22 Removal time: 06:40 OB - PN: Obj Data Labs Labs: Laboratory Results - last 24 hr 06/10/22 06/11/22 13:28 07:42 WBC 23.10 H RBC 3.35 L Hgb 10.6 L 9.2 L Hct 31.5 L MCV 94 MCH 32 MCHC 34 RDW Coeff of [place]ia 12.7 Plt Count 307 Neut % (Auto) 88.1 H Lymph % (Auto) 6.8 L [place] % (Auto) 4.6 Eos % (Auto) 0.0 Baso % (Auto) 0.1 Neut # (Auto) 20.40 H Lymph # (Auto) 1.60 [place] # (Auto) 1.10 H Eos # (Auto) 0.00 Baso # (Auto) 0.00 Abs Immat Gran (auto) 0.10 Imm/Tot Granulo (auto) 0.4
[2022-06-11] MEDS: ACETAMINOPHEN 500 MG TABLET 1000 MG PO (18:52)
[2022-06-11] MEDS: IBUPROFEN 600 MG TABLET PO (23:38)
[2022-06-12] MEDS: DOCUSATE SODIUM 100 MG CAPSULE PO (07:27)
[2022-06-12] MEDS: IBUPROFEN 600 MG TABLET PO (07:27)
[2022-06-12 07:30] VITALS: BP 108/72; PULSE 83; RESP 16; TEMP 36.7; O2SAT 98
--- NOTE | 2022-06-12 07:40 | P.DS_ITS ---
DS: Providers Provider Time Seen by Provider: 07:40 Date Seen: 06/12/22 Date of admission: 06/10/22 05:02 Primary care physician: Not a Local Provider Admitting Clinician: Consuelo Kunz MD Attending Physician on discharge: Consuelo Kunz MD DS: Diagnosis Discharge Diagnosis (1) Lactating mother: Status: Acute (2) care and examination immediately after delivery: Status: Acute (3) Anemia due to acute blood loss: Status: Acute (4) Pelvic adhesions: Status: Acute (5) S/P repeat low transverse : Status: Acute Exam Narrative: Exam Narrative: Physical exam: General: No acute distress Psych: Alert and oriented x3, full affect HEENT: Normocephalic, atraumatic Heart: Regular rate and rhythm, no murmur rub or gallop Lungs: Clear to auscultation bilaterally Abdomen: Normoactive bowel sounds, soft, appropriately tenderness. No rebound or guarding Incision: Clean, dry, intact without purulent discharge or surrounding erythema. Skin: No lesions or rashes Lower extremities: No edema or erythema Pelvic exam: Scant vaginal discharge on pad Const: Vital Signs, click to edit/add: Vital Signs - 24 hr 06/11/22 08:50 06/11/22 12:05 06/11/22 16:54 Temperature 98.5 F 97.8 F 98.4 F Pulse Rate [Pulse Oximeter] 93 82 96 Respiratory Rate 18 16 16 Blood Pressure [Ri ght Arm] 124/77 133/78 123/54 L Pulse Oximetry 96 100 99 Oxygen Delivery Me thod Room Air Room Air Room Air 06/12/22 07:30 06/11/22 23:50 Temperature 98.1 F 98 F Pulse Rate [Pulse Oximeter] 83 77 Respiratory Rate 16 16 Blood Pressure [Ri ght Arm] 108/72 113/71 Pulse Oximetry 98 98 Oxygen Delivery Me thod Room Air Room Air DS: Data Data Completed and Pending Labs on day of discharge: Labs from last 24 hours 06/11/22 07:42 Hgb 9.2 L OB - DS: Summary Hospital Course Hospital Course: The patient is a 32 year old G 3 P 1011 at 39 weeks gestation that was admitted to the Center on 06/10/22 for scheduled repeat c/s. She had an uncomplicated delivery. She delivered a viable female . the patient has done well. Overnight patient had no complaints. Her pain is well controlled on oral pain medications. She is tolerating a regular diet. She has passed flatus. She is ambulating without difficulty. Lochia is scant. She is urinating without love. Patient denies chest pain, SOB, n/v, headache, RUQ pain, vision changes, dizziness. Postoperative Review: - Admitted for: Schedule repeat - Surgical procedure: Repeat low transverse with lysis of adhesion - Skin incision: Pfannenstiel - Closure: Sutures - Estimated blood loss: 1020 mL - Intraoperative Complications: Intraoperative hemorrhage secondary to bleeding from extensive adhesions Acute blood loss anemia - Preop H: 10.5 - Postop H: 9.2 - Urine output: Adequate - Pt is asymptomatic - Vital signs stable - Will prescribe ferrous sulfate and vitamin C Postoperative care: - Diet: Advance as tolerated - Fluid: Encourage oral intake - Activity: Encourage ambulation and incentive spirometry - Pain: Tylenol, Ibuprofen, Oxycodone - DVT prophylaxis: SCDs and TEDs when not ambulating Discharge Planning - Contraception: Undecided, wants to discuss options with Dr. Kunz in clinic - Follow up in 5-7 days for incision check in clinic - Follow Up: follow-up for 2 and 6 weeks in clinic Baby's Status - Fetus: 8, 9/ 3170 g, female - Location: Bedside Dispo: Patient is POD#2. Need the following milestones:none. Anticipate discharge POD#2. Patient stable and appropriate for discharge Time spent discussing smoking cessation with patient: 3 to 10 minutes Peripartum Data Procedures: Procedures Operation Date: 06/10/22 07:00 Actual Procedure Side Surgeon p repeat Section Consuelo Kunz MD [place] Infant Gender: Female Time Spent with Patient Time attestation: Total time spent providing and/or coordinating discharge services: Discharge Plan Discharge Disposition: Home, Self-Care Date of Admission: 06/10/22 05:02 Attending Provider on Discharge: Aurelia Cobian MD Primary Care Provider: Provider,Not a Local Condition: Stable Anticipated Discharge Date/Time: 06/12/22 12:48 Discharge Medications: New ferrous sulfate 325 mg (65 mg iron) Tablet 325 mg PO BIDWM Qty: 60 0RF docusate sodium 100 mg Capsule 100 mg PO DAILY Qty: 60 0RF ibuprofen 600 mg Tablet 600 mg PO Q6H PRN (Reason: Pain) Qty: 60 0RF Lanolin (HPA) 100 % Cream 1 applic topical Q1H PRNQty: 7 0RF alum-mag hydroxide-simeth [Mag-Al Plus] 200-200-20 mg/5 mL Suspension 30 ml PO Q2H PRN (Reason: Heartburn/Gastric Distress) Qty: 60 0RF simethicone 80 mg Tablet,Chewable 80 - 160 mg PO Q4H PRN (Reason: Gas) Qty: 60 0RF oxycodone 5 mg tablet 5 mg PO Q6H PRN (Reason: pain) Qty: 20 0RF acetaminophen [Tylenol 8 Hour] 650 mg tablet extended release 650 mg PO Q8H PRNQty: 60 0RF ascorbic acid (vitamin C) [Vitamin C] 500 mg tablet 500 mg PO DAILY Qty: 60 0RF Continued DHA 200 mg capsule 200 mg PO DAILY Discontinued multivitamin with iron [Daily Multiple Vitamins/Iron] Tablet 1 tab PO QDAY Discharge Orders: Discharge Order (Routine); Ordered 06/12/22 Ordered By: Aurelia Cobian Patient Education: Caring for Your Baby (DC), (DC), OB /Breast Feeding Additional Instructions: Call the clinic to follow up at 2 weeks for incisional check and then at 6 weeks. Activity Level: Activity as Tolerated Activity Detail: Pelvic rest for 6 week Discharge Diet: Regular Follow Up Appointments: Provider,Not a Local [Primary Care Provider] - Forms: MyHealth Info Instructions
== END 2022-06-12 10:46 | disposition home or self-care (01) | DRG 540 ==
PROVIDERS: Admitting Provider Obstetrics & Gynecology; Visit Provider Obstetrics & Gynecology
PROC: 10D00Z1 Extraction of Products of Conception, Low, Open Approach (ICD-10-PCS; CPT 59514; principal; 2022-06-10 07:00)
DX: O34.211 Maternal care for low transverse scar from previous cesarean delivery (principal); O99.892 Other specified diseases and conditions complicating childbirth; N73.6 Female pelvic peritoneal adhesions (postinfective); O90.81 Anemia of the puerperium; D62 Acute posthemorrhagic anemia; O67.8 Other intrapartum hemorrhage; Z3A.39 39 weeks gestation of pregnancy; Z37.0 Single live birth
CPT/HCPCS: 1961; 36415; 64488; 76942; 85018; 85025; 86850; 86900; 86901; 87635; A9270; J0690; J1100; J1885; J2274; J2405; J2590; J3010; J7120

== ENCOUNTER 2022-12-15 08:04 | Outpatient (CLI) | payer BC, SELFPAY | END 2022-12-15 08:05 | disposition home or self-care (01) | LOC: NFLDREF 12-18 07:44 | PROVIDERS: Visit Provider Physician Assistant | DX: Z34.91 Encounter for supervision of normal pregnancy, unspecified, first trimester (principal); Z87.59 Personal history of other complications of pregnancy, childbirth and the puerperium | CPT/HCPCS: 84702 ==

== ENCOUNTER 2022-12-17 08:08 | Outpatient (CLI) | payer BC, SELFPAY | END 2022-12-17 08:09 | disposition home or self-care (01) | PROVIDERS: Visit Provider Physician Assistant | DX: Z87.59 Personal history of other complications of pregnancy, childbirth and the puerperium (principal) | CPT/HCPCS: 84702 ==

== ENCOUNTER 2022-12-23 08:15 | Outpatient (CLI) | payer BC, SELFPAY ==
--- NOTE | 2022-12-23 08:15 | US_ITS ---
Patient: JEFF ANSARI Facility:?[facility] Patient ID:?[id number] Site Patient ID:?[id number]. Site :?1990 Study:?US-OB Pelvis TV dating/viability-12/23/2022 9:05:29 AM Ordering Physician:DAVID Final Report: INDICATION: First trimester scan, establish dates. COMPARISON: None. TECHNIQUE: Real-time christopher-scale imaging of the pelvis was performed. FINDINGS: Intrauterine gestational sac present with mean sac diameter of 1.3 cm, 6 weeks 0 days. Yolk sac is present measuring 2 millimeters. No pole. Normal ovarian size. No pelvic free fluid. No ectopic . IMPRESSION: Intrauterine gestational sac without pole, likely very early gestation. Follow-up in 2-3 weeks recommended. Dictated by Dejuan Jung MD @ 12/23/2022 10:45:43 AM Signed by:?Dejuan Jung MD @12/23/2022 10:45:43 AM (Electronic Signature)
== END 2022-12-23 08:16 | disposition home or self-care (01) ==
LOC: US 08:15
PROVIDERS: Visit Provider Physician Assistant
DX: Z34.91 Encounter for supervision of normal pregnancy, unspecified, first trimester (principal); Z3A.01 Less than 8 weeks gestation of pregnancy
CPT/HCPCS: 76817

== ENCOUNTER 2023-01-07 07:11 | Outpatient (CLI) | payer BC, SELFPAY ==
--- NOTE | 2023-01-07 07:15 | CRLHL7_ITS ---
For Patients: As a result of the Century Cures Act, medical imaging exams and procedure reports are released immediately into your electronic medical record. You may view this report before your referring provider. If you have questions, please contact your health care provider. INDICATION: First trimester dating. TECHNIQUE: Ultrasound OB pelvis transabdominal and transvaginal. Real-time christopher-scale imaging of the pelvis was performed. COMPARISON: None. FINDINGS: Intrauterine gestational sac: Present with a mean sac diameter of 2.7 cm. Embryo present: Yes. Embryo cardiac activity: Not detected. [place] rump Length: 0.5 cm. Sonographic gestational age: 6 weeks 2 days. Sonographic estimated due date: August 31, 2023. Yolk sac: Not visualized. Perigestational hemorrhage: None. Ovaries and adnexae: Unremarkable. No suspicious lesions or fluid collections. IMPRESSION: Intrauterine is present with an estimated ultrasound age of 6 weeks 2 days by crown-rump length. heart activity is not detected, however it still may be too early. Viability remains uncertain. Otherwise no abnormality evident. Dictated by Theodore Restrepo MD @ 01/07/2023 8:33:01 AM (Electronically Signed)
== END 2023-01-07 07:12 | disposition home or self-care (01) ==
LOC: US 07:12
PROVIDERS: Visit Provider Registered Nurse
DX: Z34.91 Encounter for supervision of normal pregnancy, unspecified, first trimester (principal); Z3A.01 Less than 8 weeks gestation of pregnancy
CPT/HCPCS: 76817

== ENCOUNTER 2023-01-14 08:03 | Outpatient (CLI) | payer BC, SELFPAY ==
--- NOTE | 2023-01-14 08:15 | CRLHL7_ITS ---
For Patients: As a result of the Century Cures Act, medical imaging exams and procedure reports are released immediately into your electronic medical record. You may view this report before your referring provider. If you have questions, please contact your health care provider. INDICATION: CHECK VIABILITY COMPARISON: 01/07/2023 TECHNIQUE: Real-time christopher-scale imaging of the pelvis was performed. FINDINGS: Intrauterine pole unchanged measuring 5 millimeters, 6 weeks 2 days. No heart rate. Subchorionic hemorrhage measuring 2.9 x 0.7 x 1.2 cm. IMPRESSION: Nonviable gestation. Dictated by Dejuan Jung MD @ 01/14/2023 8:39:23 AM (Electronically Signed)
== END 2023-01-14 08:04 | disposition home or self-care (01) ==
LOC: US 08:04
PROVIDERS: Visit Provider Registered Nurse
DX: O36.5910 Maternal care for other known or suspected poor fetal growth, first trimester, not applicable or unspecified (principal)
CPT/HCPCS: 76817

== ENCOUNTER 2023-01-18 07:08 | Day surgery (SDC) | payer BC, SELFPAY ==
[2023-01-18 07:26] VITALS: BMI 29.4
[2023-01-18 07:29] VITALS: BP 127/80; PULSE 90; RESP 16; TEMP 36.7; O2SAT 100
[2023-01-18] MEDS: LACTATED RINGERS 1000 ML 1,000 ML 100 ML IV (07:43)
[2023-01-18] MEDS: DOXYCYCLINE HYCLATE 200 MG in 0.9 % SODIUM CHLORIDE Mini-bag 100 ML 100 MG IVPB (07:50)
--- NOTE | 2023-01-18 08:00 | W.ANESCHARGE ---
Anesthesia Charges Start Date/Time Anesthesia Start Date: 01/18/23 Anesthesia Start Time: 09:10 Stop Date/Time Anesthesia Stop Date: 01/18/23 Anesthesia Stop Time: 09:45
--- NOTE | 2023-01-18 09:13 | W.PM.H&PU ---
History & Physical Update History & Physical Update H&P Reviewed and patient assessed: No changes noted
--- NOTE | 2023-01-18 09:13 | PM.PROC ---
Procedure Note Time Seen by Provider: 08:50 Date Seen: 01/18/23 Provider Contact Time: 09:13 Date of procedure: 01/18/23 Will [facility] bill your pro fee for this procedure?: Yes Procedure: Preoperative diagnosis: Binta is a 32-year-old 4 para 2021 with a missed at 6and 2/7 weeks gestation by ultrasound. Postoperative diagnosis: Same Procedure: Suction curettage Anesthesia: Conscious sedation, paracervical block Surgeon: Shalonda Murrieta MD Quill Buncher And Sorter: Not applicable IV fluid: 600mL Estimated blood loss: 5 mL Specimen: Products of conception to pathology Findings: On exam under anesthesia: the uterus was approximately 9 weeks size, anteverted position. Cervical os was closed, without active bleeding. Adnexa were without mass or fullness palpable. The uterus sounded to 10 cm. On suction curettage there was a moderate to large amount of products of conception. Procedure: Binta was taken to the operating room where conscious sedation was found to be adequate. She was placed in the dorsal lithotomy position and an exam under anesthesia was performed with with findings stated above. She was then prepped and draped in normal sterile manner. A bivalve speculum was placed in the vagina to visualize the cervix. A paracervical block was placed using 0.5% Marcaine: 10 mL injected at the 4 and 8 o'clock positions on the cervix: Total of 20 mL used. The anterior lip of the cervix was grasped with a long Allis clamp. The cervix was dilated to Hegar # 10. A # 10 curved curette was then advanced into the uterus without difficulty. A suction curettage was then performed using 40-50 mmHg pressure. 3 passes with the curette were performed to remove all visualized tissue. The curette was removed and mild, sharp curettage was performed to verify that all of the products of conception had been removed. One last pass with the curved curette was then made to verify that all of the tissue had been removed. The Allis clamp was removed from the anterior lip of the cervix. Nothing was needed to obtain hemostasis. Excellent hemostasis was noted. The speculum was then removed from the vagina. The patient tolerated this procedure well. Sponge, lap and instrument counts were correct x2 the end of the procedure. The patient was awakened from sedation and taken to the recovery area in stable condition. The patient received 200mg IV Doxycycline 1hr prior to the procedure. Prior to being awakened from surgery the patient received 30mg IV Toradol.
[2023-01-18] MEDS: KETOROLAC 30 MG/ML inj IVP (09:28)
[2023-01-18] MEDS: BUPIVACAINE 0.5% 30 ML INJECTION (09:28)
[2023-01-18 09:45] VITALS: BP 106/61; PULSE 74; RESP 16; TEMP 36.4; O2SAT 97
--- NOTE | 2023-01-18 09:46 | W.ANESCHARGE ---
Anesthesia Charges Start Date/Time Anesthesia Start Date: 01/18/23 Anesthesia Start Time: 09:10 Stop Date/Time Anesthesia Stop Date: 01/18/23 Anesthesia Stop Time: 09:45
[2023-01-18 10:00] VITALS: BP 110/77; PULSE 70; RESP 16; O2SAT 97
[2023-01-18 10:15] VITALS: BP 105/74; PULSE 75; RESP 16; O2SAT 97
== END 2023-01-18 10:39 | disposition home or self-care (01) ==
PROVIDERS: PCP Advanced Practice Midwife; Visit Provider Obstetrics & Gynecology
PROC: (CPT 59820; principal; 2023-01-18 08:45)
DX: O02.1 Missed abortion (principal)
CPT/HCPCS: 59820; 01965; 36415; 86850; 86900; 86901; 88305; J0665; J1100; J1885; J2250; J2405; J3010; J7120

== ENCOUNTER 2023-02-02 14:07 | Emergency (ER) | payer BC, SELFPAY ==
[2023-02-02 14:11] VITALS: BP 139/74; PULSE 92; RESP 14; TEMP 36.6; O2SAT 100; BMI 28.5
--- NOTE | 2023-02-02 14:31 | CRLHL7_ITS ---
For Patients: As a result of the Century Cures Act, medical imaging exams and procedure reports are released immediately into your electronic medical record. You may view this report before your referring provider. If you have questions, please contact your health care provider. INDICATION: TECHNIQUE: Ultrasound pelvis transabdominal and transvaginal for better assessment or to better visualize the endometrium. Real-time sonographic images with spectral and color Doppler imaging of the ovaries were obtained. COMPARISON: None. FINDINGS: Uterus: 6.8 x 5.0 x 5.2 cm. Normal echotexture of the myometrium. No masses. Endometrium: Transvaginal imaging was performed to better evaluate the endometrium. Endometrial thickness measures 17 mm. Some increased endometrial vascularity. Ovaries not visualized. Cul-de-sac: No significant free fluid. IMPRESSION: Endometrial thickening of 17 millimeters with some increased vascularity. Constellation of findings are concerning for retained products of conception in the appropriate clinical setting. Dictated by Fahad Houston MD @ 02/02/2023 4:03:27 PM (Electronically Signed)
--- NOTE | 2023-02-02 14:33 | ED.GENADULT ---
HPI - General Adult General Time Seen by Provider: 14:33 Date Seen: 02/02/23 Chief complaint: Vaginal Bleeding Stated complaint: heavy bleeding, DNC 2 wks ago Time Seen by Provider: 02/02/23 14:15 Source: patient Mode of arrival: ambulatory Limitations: no limitations History of Present Illness HPI narrative: Patient is a 32-year-old female presenting to the emergency department for vaginal bleeding. She states she had a D&C 2 weeks ago for a miscarriage. Since then she has been having vaginal bleeding going through a pad every 2 or 3 hours. She had follow-up with her OB Gyne today about 10:00 o'clock in the scheduled her for and transvaginal ultrasound tomorrow to look for causes the for causes of the bleeding. Patient states that around noon she passed a few clots the bleeding got worse. She is now going through a tampon every 30 minutes. Patient states she 1 episode of lightheadedness when she 1st arrived to the emergency department that has since resolved. She states she is otherwise feeling well. Denies headache, chest pain, shortness of breath, abdominal pain, fevers, chills, diarrhea, constipation, dysuria, vaginal discharge. Related Data Home Medications Medication Instructions Recorded Confirmed docosahexaenoic acid 200 mg 200 mg PO DAILY 01/29/22 02/02/23 capsule ( DHA) Allergies Allergy/AdvReac Type Severity Reaction Status Date / Time No Known Allergies Allergy Unknown Verified 02/02/23 10:14 Review of Systems Status of ROS: Reports: 10 or more systems reviewed and unremarkable except as noted in History and below [facility] Medical History Missed ab ?O02.1 - Missed (ICD-10) Anemia due to acute blood loss ?D62 - Acute posthemorrhagic anemia (ICD-10) Tubal ectopic ?O00.109 - Unspecified tubal without intrauterine (ICD-10) Partial thickness burn Surgical History History of D&C (01/18/23) ?Z98.890 - Other specified postprocedural states (ICD-10) S/P repeat low transverse ?Z98.891 - History of uterine scar from previous surgery (ICD-10) H/O laparoscopy ?Z98.890 - Other specified postprocedural states (ICD-10) S/P section ?Z98.891 - History of uterine scar from previous surgery (ICD-10) Family History Mother Thyroid disease Ovarian cancer Maternal Grandmother Breast cancer Social History Narrative: Lives in [place] with Sarah (10 yrs old) and . 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 No tobacco, alcohol, or ilicit drug use. Smoking Status: Former smoker How often do you have a drink containing alcohol: never How often do you have six or more drinks on one occasion: Never AUDIT-C Alcohol total score: 0 Non-prescribed substance use: denies use Caffeine: No Little interest or pleasure in doing things: not at all Feeling down, depressed, or hopeless: not at all Are you using contraception or practicing any form of control: No Exam Narrative: Exam Narrative: Const: Well-nourished, Well-developed, in mild distress Eyes: PERRL, no conjunctival injection, and symmetrical lids ENMT: Atraumatic external nose and ears. Moist mucous membranes. Neck: Symmetric, trachea midline, No thyromegaly. CVS: RRR, No murmurs or gallops. Peripheral pulses 2+ and equal in all extremities RESP: Unlabored respiratory effort. Clear to auscultation bilaterally. GI: Mildly tender lower abdominal region. Nondistended, No rebound or guarding. MSK:Extremities w/o deformity, Normal Active ROM Skin: Warm, Dry. No rashes or lesions. Neuro: Normal Muscle tone, No focal neurological deficits. Psych: Awake, Alert, & Oriented x3. Appropriate mood and affect. Const: Vital Signs, click to edit/add: Vital Signs - 24 hr 02/02/23 14:11 02/02/23 15:09 02/02/23 15:09 Temperature 97.9 F Pulse Rate 84 Pulse Rate [Pulse Oximeter] 92 72 Respiratory Rate 14 14 Blood Pressure 128/75 Blood Pressure [Ri ght Upper Arm] 139/74 128/75 Pulse Oximetry 100 99 99 Oxygen Delivery Me thod Room Air Room Air 02/02/23 15:32 02/02/23 16:02 02/02/23 16:32 Temperature Pulse Rate 79 89 97 Pulse Rate [Pulse Oximeter] Respiratory Rate Blood Pressure 122/74 125/84 128/90 H Blood Pressure [Ri ght Upper Arm] Pulse Oximetry 99 100 100 Oxygen Delivery Me thod Course Vital Signs Vital signs: Initial Vital Signs Temperature 97.9 F 02/02/23 14:11 Temperature Source Temporal Artery Scan 02/02/23 14:11 Pulse Rate 92 02/02/23 14:11 Pulse Rhythm Regular 02/02/23 14:11 Respiratory Rate 14 02/02/23 14:11 Blood Pressure 139/74 02/02/23 14:11 Blood Pressure Mean 95 02/02/23 14:11 Blood Pressure Position Sitting 02/02/23 14:11 Pulse Oximetry 100 02/02/23 14:11 Oxygen Delivery Method Room Air 02/02/23 14:11 Vital Signs Temperature 97.9 F 02/02/23 14:11 Pulse Rate 92 02/02/23 14:11 Respiratory Rate 14 02/02/23 14:11 Blood Pressure 139/74 02/02/23 14:11 Pulse Oximetry 100 02/02/23 14:11 Oxygen Delivery Method Room Air 02/02/23 14:11 Temperature 97.9 F 02/02/23 14:11 Pulse Rate 97 02/02/23 16:32 Respiratory Rate 14 02/02/23 15:09 Blood Pressure 128/90 H 02/02/23 16:32 Pulse Oximetry 100 02/02/23 16:32 Oxygen Delivery Method Room Air 02/02/23 15:09 Medical Decision Making [facility] Narrative Medical decision making narrative: patient is a 32-year-old female presented emergency department for vaginal bleeding. She had D and C2 weeks ago and had a follow-up visit this morning. She has been going through about a pad every 2 hours but states about 2 hours after her follow-up visit this morning she started bleeding more and passed clots. She is now going through a tampon every 30 minutes. Have 1 episode lightheadedness that was brief and has since resolved. She denies any other complaints at this time. CBC, BMP, transvaginal ultrasound were all ordered. Cbc shows no signs of anemia at this time. BMP shows no concerning abnormalities. Ultrasound was done and shows concerning for retained products of contraception. I spoke to Dr. Bolivar of [facility] She came to evaluate the patient for possible repeat D&C. They were unable to perform the surgery tonight in since the patient is otherwise appearing stable the recommendation from her at this time is to have the patient discharged home in come back to same-day surgery tomorrow for a D&C. Patient is agreeable to this. Lab Data Labs: Lab Results 02/02/23 Range/Units 14:31 WBC 11.23 H (4.50-11.00) K/uL RBC 4.08 (4.00-5.20) m/uL Hgb 12.7 (12.0-16.0) gm/dL Hct 37.5 (33.0-51.0) % MCV 92 (80-100) fL MCH 31 (26-34) pg MCHC 34 (32-36) gm/dL RDW Coeff of Dunia 11.5 (11.5-15.5) % Plt Count 328 (140-440) K/uL Neut % (Auto) 73.4 H (42.0-72.0) % Lymph % (Auto) 17.9 L (20-44) % Bonner % (Auto) 7.1 (0.0-11.0) % Eos % (Auto) 1.0 (0.0-7.0) % Baso % (Auto) 0.3 (0.0-3.0) % Neut # (Auto) 8.20 H (1.7-7.0) K/uL Lymph # (Auto) 2.00 (0.90-2.90) K/uL Bonner # (Auto) 0.80 (0.00-0.90) K/UL Eos # (Auto) 0.10 (0.00-0.50) K/uL Baso # (Auto) 0.00 (0.00-0.30) K/uL Abs Immat Gran (auto) 0.00 (0.00-0.30) K/uL Imm/Tot Granulo (auto) 0.3 % Sodium 136 (135-149) mmol/L Potassium 3.4 L (3.6-5.1) mmol/L Chloride 100 (96-114) mmol/L Carbon Dioxide 25 (20-32) mmol/L BUN 15 (5-24) mg/dL Creatinine 0.7 (0.5-1.5) mg/dL Estimated Creat Clear 91.25 Estimated GFR 118 ml/min Glucose 89 (60-115) mg/dL Calcium 8.8 (8.4-10.6) mg/dL Discharge Plan Discharge Clinical Impression: Retained products of conception Patient Disposition: Home, Self-Care Condition: Stable Instructions: Abnormal (Dysfunctional) Uterine Bleeding (ED) Additional Instructions: Arrive at hospital at 10:45am tomorrow (02/03) and go to Same-Day Surgery department. No food for 8 hours prior. You can have water up to 2 hours prior. Procedure: Suction curettage with Dr. Murrieta with ultrasound guidance. Prescriptions: No Action DHA 200 mg capsule 200 mg PO DAILY Follow Up/Referrals: Vikki Gomez CNM [Primary Care Provider] - Stand Alone Forms: MyHealth Info Instructions
[2023-02-02 14:53] LABS: Basophils Percent Auto 0.3 % (0.0-3.0); Hematocrit 37.5 % (33.0-51.0); Hemoglobin* 12.7 gm/dL (12.0-16.0); Immature Granulocytes Pct Auto 0.3 %; Lymphocytes Percent Auto 17.9 % (20-44); Mean Corpuscular HGB Conc 34 gm/dL (32-36); Mean Corpuscular Hemoglobin 31 pg (26-34); Mean Corpuscular Volume 92 fL (80-100); Monocytes Percent Auto 7.1 % (0.0-11.0); Neutrophils Percent Auto 73.4 % (42.0-72.0); Platelet Count* 328 K/uL (140-440); RDW Coefficient of Variation % 11.5 % (11.5-15.5); Red Blood Count 4.08 m/uL (4.00-5.20); White Blood Count* 11.23 K/uL (4.50-11.00)
[2023-02-02 14:55] LABS: Slide Review Reflex No
[2023-02-02 15:09] VITALS: BP 128/75; PULSE 72; PULSE 84; RESP 14; O2SAT 99
[2023-02-02 15:17] LABS: Chloride* 100 mmol/L (96-114); Potassium* 3.4 mmol/L (3.6-5.1); Sodium* 136 mmol/L (135-149)
[2023-02-02 15:20] LABS: Blood Urea Nitrogen* 15 mg/dL (5-24); Carbon Dioxide* 25 mmol/L (20-32); Creatinine* 0.7 mg/dL (0.5-1.5); Est. Creatinine Clearance* 91.25; Estimated Glomerular Filt Rate 118 ml/min
[2023-02-02 15:21] LABS: Calcium* 8.8 mg/dL (8.4-10.6); Glucose* 89 mg/dL (60-115)
[2023-02-02 15:32] VITALS: BP 122/74; PULSE 79; O2SAT 99
[2023-02-02 16:02] VITALS: BP 125/84; PULSE 89; O2SAT 100
[2023-02-02 16:32] VITALS: BP 128/90; PULSE 97; O2SAT 100
--- NOTE | 2023-02-02 16:39 | ED.NURSE ---
Pt states she ate a chicken breast at noon. HEALTH AND SAFETY TECH and Anesthesia at bedside to speak with Pt.
--- NOTE | 2023-02-02 16:59 | P.GYNCN_ITS ---
FINANCE VICE PRESIDENT - CN: HPI Data of Consult Time Seen by Provider: 16:59 Date Seen: 02/02/23 Patient: [facility] Patient Consult date: 02/02/23 Requesting Physician: Tacos Corcoran MD Primary Care Provider: Shalonda Keller MD Consult Narrative Reason for consult: vaginal bleeding (Retained products of conception) Narrative: Binta Meier is a 32 year old 4 para 2021 who presented to the emergency room with heavy vaginal bleeding. She is status post a suction curettage procedure 2 weeks ago for a missed at 6 weeks gestation. The procedure was uncomplicated. She has had daily bleeding ever since the procedure. She saw Dr. Murrieta this morning for a postoperative evaluation at 10:15 a.m.. At that time, they had decided to order a pelvic ultrasound for tomorrow to look for any evidence of retained products of conception. Subsequently, after leaving the appointment, the patient had a significant increase in bleeding, with passage of clots. She presented to the emergency department for further evaluation. An ultrasound was performed today, which is very suspicious for retained products of conception as evidenced by an endometrial lining thickness of 17 mm with an area of increased vascularity. Incidentally, the uterus was found to have a very retroverted orientation, with a twist. This is likely the reason why the uterus was not completely evacuated with surgical procedure. cc:: CC: Review of Systems Const: Denies: fever, chills, fatigue or malaise Endo: Denies: fatigue PFSH PFSH Medical History Missed ab ?O02.1 - Missed (ICD-10) Anemia due to acute blood loss ?D62 - Acute posthemorrhagic anemia (ICD-10) Tubal ectopic ?O00.109 - Unspecified tubal without intrauterine (ICD- 10) Partial thickness burn Surgical History History of D&C (01/18/23) ?Z98.890 - Other specified postprocedural states (ICD-10) S/P repeat low transverse ?Z98.891 - History of uterine scar from previous surgery (ICD-10) H/O laparoscopy ?Z98.890 - Other specified postprocedural states (ICD-10) S/P section ?Z98.891 - History of uterine scar from previous surgery (ICD-10) Family History Mother Thyroid disease Ovarian cancer Maternal Grandmother Breast cancer Social History Narrative: Lives in [place] with Sarah (10 yrs old) and . 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 No tobacco, alcohol, or ilicit drug use. Smoking Status: Former smoker How often do you have a drink containing alcohol: never How often do you have six or more drinks on one occasion: Never AUDIT-C Alcohol total score: 0 Non-prescribed substance use: denies use Caffeine: No Little interest or pleasure in doing things: not at all Feeling down, depressed, or hopeless: not at all Are you using contraception or practicing any form of control: No Meds Home Medications and Allergies Home Medications Medication Instructions Recorded Confirmed Type docosahexaenoic acid 200 mg 200 mg PO DAILY 01/29/22 02/02/23 History capsule ( DHA) Allergies Allergy/AdvReac Type Severity Reaction Status Date / Time No Known Allergies Allergy Unknown Verified 02/02/23 10:14 FINANCE VICE PRESIDENT - Exam Physical Exam: Vital signs: Temp Pulse Resp BP Pulse Ox O2 Del Method 97.9 F 72 14 128/75 99 Room Air 02/02/23 14:11 02/02/23 15:09 02/02/23 15:09 02/02/23 15:09 02/02/23 15:09 02/02/23 15:09 Constitutional: Constitutional: no acute distress and cooperative FINANCE VICE PRESIDENT - Results Labs Labs: Short CBC 02/02/23 Range/Units 14:31 WBC 11.23 H (4.50-11.00) K/uL Hgb 12.7 (12.0-16.0) gm/dL Hct 37.5 (33.0-51.0) % Plt Count 328 (140-440) K/uL BMP 02/02/23 14:31 Sodium 136 Potassium 3.4 L Chloride 100 Carbon Dioxide 25 BUN 15 Creatinine 0.7 Glucose 89 Calcium 8.8 Imaging US pelvis: Attestation: I have reviewed the pertinent imaging results. My impression: Retroverted uterus. Endometrial thickening of 17 millimeters with some increased vascularity, consistent with retained products of conception. Radiologist's impression: Endometrial thickening of 17 millimeters with some increased vascularity. Constellation of findings are concerning for retained products of conception in the appropriate clinical setting. Assessment and Plan Assessment and plan (1) Retained products of conception: Status: Acute Plan 1. The patient and I reviewed the ultrasound results. It appears that she has retained products of conception, most likely as a result of the severely retroverted position of her uterus. I would recommend surgical management via suction curettage under ultrasound guidance. We discussed the relative risks and benefits of the procedure, and informed consent was obtained. 2. The patient is currently hemodynamically stable. The heavy bleeding has now resolved, and she is using only a panty liner. She last ate, a chicken breast, at noon today. After consulting with the ARTIFICIAL PEARL MAKER about potential risks of aspiration during surgery, the recommendation was made to either delay surgery until after 8:00 a.m. this evening, or proceed with surgery tomorrow, at which time the patient can be NPO for 8 hours and monitored anesthesia can be utilized with less risk. The patient would prefer to go home this evening and return tomorrow for surgery. After consulting with the operating room staffs and supervisor cured meats, as well as Dr. Murrieta, the patient will be added to the surgery schedule for tomorrow at noon, for suction curettage under ultrasound guidance with Dr. Murrieta, under MAC anesthesia. The patient was instructed to remain NPO for 8 hours prior to the procedure, though she was advised by the ARTIFICIAL PEARL MAKER that she can have water up to 2 hours prior to surgery. She should arrive at the same day surgery center of [facility] at 10:45 a.m. for a noon procedure. If she should have significantly increased bleeding or hemorrhage overnight, she should return to the emergency department for further evaluation and emergent suction curettage if needed.
== END 2023-02-02 17:10 | disposition home or self-care (01) ==
LOC: ED 17:05
PROVIDERS: Emergency Provider Student in an Organized Health Care Education/Training Program; PCP Advanced Practice Midwife
DX: O03.39 Incomplete spontaneous abortion with other complications (principal)
CPT/HCPCS: 36415; 76830; 80048; 85025; 99283; 99284

== ENCOUNTER 2023-02-03 10:47 | Day surgery (SDC) | payer BC, SELFPAY ==
[2023-02-03 11:07] VITALS: BP 117/70; PULSE 78; RESP 16; TEMP 36.9; O2SAT 97
[2023-02-03 11:08] VITALS: BMI 28.0
[2023-02-03] MEDS: SODIUM CHLORIDE 0.9 % (FLUSH) 10 ML SYRINGE IVF (11:25)
[2023-02-03] MEDS: LACTATED RINGERS 1000 ML 1,000 ML 100 ML IV (11:25)
--- NOTE | 2023-02-03 12:13 | W.PM.H&PU ---
History & Physical Update History & Physical Update H&P Reviewed and patient assessed: No changes noted
--- NOTE | 2023-02-03 12:58 | W.ANESCHARGE ---
Anesthesia Charges Start Date/Time Anesthesia Start Date: 02/03/23 Anesthesia Start Time: 13:17 Stop Date/Time Anesthesia Stop Date: 02/03/23 Anesthesia Stop Time: 13:58
[2023-02-03] MEDS: CEFAZOLIN 2 GM INJ IVP (13:27)
[2023-02-03] MEDS: BUPIVACAINE 0.5% 30 ML INJECTION (13:38)
--- NOTE | 2023-02-03 13:51 | P.PCN_ITS ---
Procedure Note Time Seen by Provider: 13:51 Date Seen: 02/03/23 Date of procedure: 02/03/23 Will [facility] bill your pro fee for this procedure?: Yes Procedure: Preoperative diagnosis: Binta is a 32-year-old 3 para 2011 * Status post suction D and C on 01/18/2023 for missed A/B at 6 weeks 2 days gestation * Suspected retained products of conception 02/02/2023 on ultrasound endometrium measured 1.7 cm Postoperative diagnosis: Same Procedure: Suction curettage with ultrasound guidance Anesthesia: Conscious sedation, paracervical block Surgeon: Shalonda Murrieta MD Zipper Joiner: Not applicable IV fluid: 900 mL Estimated blood loss: 5 mL Specimen: Products of conception to pathology Findings: On exam under anesthesia: the uterus was approximately 8 weeks size, anteflexed position after the bladder was backfilled with 250 mL of saline. Cervical os was closed without active bleeding. Adnexa were without mass or fullness palpable. The uterus sounded to 10cm. On suction curettage there was a small amount of products of conception. Procedure: Binta was taken to the operating room where conscious sedation was found to be adequate. She was placed in the dorsal lithotomy position and an exam under anesthesia was performed with with findings stated above. She was then prepped and draped in normal sterile manner. A Meyer catheter was placed in the patient's bladder and the bladder backfilled with 250 mL of sterile saline. The certified surgical technician performed an abdominal ultrasound throughout the procedure. A bivalve speculum was placed in the vagina to visualize the cervix. A paracervical block was placed using 0.5% Marcaine: 10 mL injected at the 4 and 8 o'clock positions on the cervix. The Anterior lip of the cervix was grasped with a long Allis clamp. The cervix was dilated to Hegar # 10. A # 10 curved curette was then advanced into the uterus without difficulty. A suction curettage was then performed using 40-50 mmHg pressure. 3 passes with the curette were performed to remove all visualized tissue. The curette was removed and mild, sharp curettage was performed to verify that all of the products of conception had been removed. One last pass with the curved curette was then made to verify that all of the tissue had been removed. At the end of the procedure the endometrium measure less than 1 cm with no evidence of blood flow to the endometrium by ultrasound. The clamp was removed from the Meyer catheter and the bladder emptied. The Allis clamp was removed from the anterior lip of the cervix. Nothing was needed to obtain hemostasis. Excellent hemostasis was noted. The speculum was then removed from the vagina. The patient tolerated this procedure well. Sponge, lap and instrument counts were correct x2 the end of the procedure. The patient was awakened from sedation and taken to the recovery area in stable condition. The patient received 2 g IV Ancef prior to the start of the procedure. She received 30 mg IV Toradol prior to the completion of the procedure. Anesthesia: MAC and local
--- NOTE | 2023-02-03 13:59 | W.ANESCHARGE ---
Anesthesia Charges Start Date/Time Anesthesia Start Date: 02/03/23 Anesthesia Start Time: 13:17 Stop Date/Time Anesthesia Stop Date: 02/03/23 Anesthesia Stop Time: 13:58
[2023-02-03 14:00] VITALS: BP 101/68; PULSE 93; RESP 16; TEMP 36.8; O2SAT 94
[2023-02-03 14:15] VITALS: BP 125/83; PULSE 82; RESP 16; O2SAT 96
== END 2023-02-03 15:00 | disposition home or self-care (01) ==
PROVIDERS: PCP Advanced Practice Midwife; Visit Provider Obstetrics & Gynecology
PROC: (CPT 59812; principal; 2023-02-03 12:15)
DX: O03.1 Delayed or excessive hemorrhage following incomplete spontaneous abortion (principal)
CPT/HCPCS: 59812; 00940; 01965; 76856; 76998; 88305; J0665; J0690; J1100; J1885; J2250; J2405; J2704; J3010; J3490; J7120

== ENCOUNTER 2023-08-23 09:01 | Outpatient (CLI) | payer BC, SELFPAY ==
--- OUTSIDE RECORDS SUMMARY | 2023-08-24 06:10 | XMS_ITS | Clinical Summary ---
Author Name Unknown Organization [facility] Address [address] [place] [address] Care Team Providers Care General Ledger Bookkeeper Name Role Phone Patricia Da Silva PA-C Primary Care Provider [phone] Source Comments You are receiving this document as you are listed as the primary care provider,follow-up provider, or the patient has been referred to you for consultation.This is in compliance with the Medicare and[facility] EHR Incentive Program,which states Providers who transition their patient to another setting of careor provider of care or refers their patient to another provider of care shouldprovide summary care record for each transition of care or referral. [facility] Allergies No known active allergies Medications Medication Sig Dispensed Refills Start Date End Date Status meclizine (ANTIVERT) 25 MG tabletIndications:Jeanna tigo Take 1 Tablet by mouth three times a day as needed. 30 Tablet 06/17/2021 Active Active Problems Problem Noted Date Diagnosed Date History of alcohol abuse 07/27/2019 FH: malignant neoplasm of thyroid 12/28/2017 Contraceptive use 06/14/2017 Resolved Problems Problem Noted Date Diagnosed Date Resolved Date Elevated BP without diagnosis of hypertension 06/28/20 17 07/27/2019 Immunizations Name Administration Dates Next Due 4vHPV (Gardasil) 12/25/2014,07/13/2013, 1 Chicken Pox - History of Illness 07/11/1996 DTaP 03/07/2003 HepA Adult (19+ yrs) 12/25/2014,10/20/2010 HepB Adult (Engerix-B, 20+ y rs, 3 dose series) 09/09/2003,04/10/2003,03/07/2003 Influenza IIV4 (Quadrivalent ) 0.5mL (97675) 06/02/2020,05/23/2019,05/17/2018, 017,05/19/2016,06/18/2015 MMR 05/13/2012,03/07/2003 Tdap 10/11/2011 Family History Medical History Relation Name Comments No Known Problems Father Migraines Mother Thyroid Disorder Mother Thyroid can cer No Known Problems Daughter Araceli Cancer, Breast Maternal Grandmother Diabetes Paternal Grandmother High Cholesterol Paternal Grandmother Hypertension Paternal Grandmother No Known Problems Sister 1 Destiny Diabetes Sister 2 Lorie Type 1 diabetes . Stroke Sister 2 Lorie No Known Problems Sister 3 Catlyn Relation Name Status Comments Father Alive Mother Alive Daughter Araceli Alive Maternal Grandfather Unknown Maternal Grandmother Alive Paternal Grandfather Paternal Grandmother Alive Sister 1 Destiny Alive Sister 2 Lorie Alive Sister 3 Catlyn Alive Social History Tobacco Use Types Packs/Day Years Used Date Smoking Tobacco: Former Cigarettes Q uit: 07/09/2012 Smokeless Tobacco: Never Alcohol Use Standard Drinks/Week Comments Not Currently 2 (1 standard drink = 0.6 oz pur e alcohol) Sober since Apr 04, 2019 PHQ-2 Answer Date Recorded PHQ-2 Score 0 01/13/2021 Sex and Gender Information Value Date Recorded Sex Assigned at Not on file Gender Identity Not on file Sexual Orientation Not on file Last Filed Vital Signs Vital Sign Reading Time Taken Comments Blood Pressure 132/87 06/17/2021 1:50 PM RESEARCH CONSULTANT Pulse 102 06/17/2021 1:50 PM RESEARCH CONSULTANT Temperature 37 ??C (98.6 ??F) 01/13/2021 8:02 AM CDT Respiratory Rate 16 06/17/2021 1:44 PM RESEARCH CONSULTANT Oxygen Saturation - - Inhaled Oxygen Concentration - - Weight 63 kg (139 lb) 06/17/2021 1:44 PM RESEARCH CONSULTANT Height 157.5 cm (5' 2) 06/17/2021 1:44 PM RESEARCH CONSULTANT Body Mass Index 25.42 06/17/2021 1:44 PM RESEARCH CONSULTANT Plan of Treatment Health Maintenance Due Date Last Done Comments Hep C Screening (Preventive Services) 1990 COVID-19 Vaccine (#1) 1990 Adult Preventive Visit 01/28/2023 , 07/27/2019, 12/28/2017 Influenza (#1) 2023 06/02/2020, 05/11, 05/17/2018, Additional history exists Cervical Cancer Screening 01/28/2026 01/28/2021, DTaP/Tdap/Td (4 - Tdap) 02/05/2027 02/06/20, 10/11/2011, 03/07/2003, Additional history exists Zoster/Shingles (1 of 2) 2040 HepB Completed 09/09/2003, 07/2002, 03/07/2003 HPV Vaccine Completed 12/25/2014, 09/2013, 10/20/2010, Additional history exists HepA Aged Out 12/25/2014, 10/09, 10/20/2010 No longer eligible based on patient's age to complete this topic HIV Screening (Preventive Services) Completed 12/28/2017 Hib Aged Out No longer eligi ble based on patient's age to complete this topic IPV (Polio) Aged Out No longer eligi ble based on patient's age to complete this topic MCV4 Aged Out No longer eligi ble based on patient's age to complete this topic Pneumococcal Aged Out No longer eligi ble based on patient's age to complete this topic Procedures Procedure Name Priority Date/Time Associated Diagnosis Comments PAP TEST Routine 01/28/2021 11:01 AM CDT Pap smear for cervical cancer screening HIV 1/2 AG/AB 4TH GEN Routine 12/28/2017 4:27 PM CDT Screening for HIV (human immunodeficiency virus) from Last 3 Months or Most Recently Relevant to Health Maintenance Results * PAP Test (01/28/2021 11:01 AM CDT) Case Report Pap ? Case: [id number] ? Authorizing Provider: ??Patricia Da Silva PA-C ?Collected: ? 01/28/2021 1101 ? Ordering Location: ? [place] [address] Family ? Received: ?01/28/2021 1200 ? Medicine ? First Screen: ?Manzanares, Elena D, CT ? (ASCP) ? Specimen: ?Pap Test, Routine, Cervix/Endocervix ? 02/10/2021 10:26 AM CDT [facility] Pap Specimen Adequacy Satisfactory for evaluation, endocervical/lebron sformation zone component present. 02/10/2021 10:26 AM CDT [facility] Pap Interpretation Negative for intraepithelial lesion or malignancy (NILM). 02/10/2021 10:26 AM CDT [facility] Pap Other Findings Fungal organisms morphologically consistent with Jaylyn spp. 02/10/2021 10:26 AM CDT [facility] Pap Disclaimer The Pap test is a screening test designed to aid in the detection of cervical cancer and its precursor lesions. It is not a diagnostic procedure and should not be used as the sole means of detecting cervical cancer. Both false-positive and false-negative results may occur. 02/10/2021 10:26 AM CDT [facility] Gross Description The specimen is received in SurePath fixative and properly labeled. 1 Pap-stained SurePath slide is prepared. 02/10/2021 10:26 AM CDT [facility] Embedded Images 10:26 AM CDT [facility] Other Specimen Type ENTIRE ENDOCERVIX / Unknown 01/28/2021 11:01 AM CDT 01/28/2021 12:00 PM CDT Comment:LMP: Patient's last menstrual period was 01/21/2021 (lmp unknown). Patricia Da Silva PA-C LAB PATHOLOGY Performing Organization Address City/[facility] Co de Phone Number [address] * HIV 1/2 Ag/Ab 4th Generation (12/28/2017 4:27 PM CDT) HIV-1 p24 Ag and HIV-1/HIV-2 Ab Nonreactive Nonreactive PN SOFT 12/28/2017 4:27 PM CDT 12/28/2017 9:20 PM CDT Narrative PN SOFT - 12/28/2017 10:11 [place] [address] CLIA number [id number] Patricia Da Silva PA-C LAB_1 Performing Organization Address City/[facility]/ZIP Co de Phone Number PN SOFT [address] [place] [address] [place], [place] [address] from Last 3 Months or Most Recently Relevant to Health Maintenance Care Teams General Ledger Bookkeeper Relationship Specialty Start Date End Date Patricia Da Silva PA-C [address] [place] [address] PCP - General 10/13/15
== END 2023-08-23 09:02 | disposition home or self-care (01) ==
LOC: NFLDREF 08-24 06:09
PROVIDERS: Visit Provider Obstetrics & Gynecology
DX: O09.291 Supervision of pregnancy with other poor reproductive or obstetric history, first trimester (principal)
CPT/HCPCS: 84702

== ENCOUNTER 2023-08-25 09:01 | Outpatient (CLI) | payer BC, SELFPAY ==
--- OUTSIDE RECORDS SUMMARY | 2023-08-26 07:23 | XMS_ITS | Clinical Summary ---
Author Name Unknown Organization [facility] Address [address] [place] [address] Care Team Providers Care Hydraulic Bull Riveter Operator Name Role Phone Rekha Patricia Adams PA-C Primary Care Provider [phone] Source Comments You are receiving this document as you are listed as the primary care provider,follow-up provider, or the patient has been referred to you for consultation.This is in compliance with the Medicare and[facility] EHR Incentive Program,which states Providers who transition [...] series) 09/09/2003,04/10/2003,03/07/2003 Influenza IIV4 (Quadrivalent ) 0.5mL (68240) 06/02/2020,05/23/2019,05/17/2018, 017,05/19/2016,06/18/2015 MMR 05/13/2012,03/07/2003 Tdap 10/11/2011 Family [...] Comments Blood Pressure 132/87 06/17/2021 1:50 PM AIRLINE RADIO OPERATOR Pulse 102 06/17/2021 1:50 PM AIRLINE RADIO OPERATOR Temperature 37 ??C (98.6 ??F) 01/13/2021 8:02 AM CDT Respiratory Rate 16 06/17/2021 1:44 PM AIRLINE RADIO OPERATOR Oxygen Saturation - - Inhaled Oxygen Concentration - - Weight 63 kg (139 lb) 06/17/2021 1:44 PM AIRLINE RADIO OPERATOR Height 157.5 cm (5' 2) 06/17/2021 1:44 PM AIRLINE RADIO OPERATOR Body Mass Index 25.42 06/17/2021 1:44 PM AIRLINE RADIO OPERATOR Plan of Treatment Health Maintenance Due [...] AM CDT) Case Report Pap ? Case: [id number] ? Authorizing Provider: ??Patricia Da Silva PA-C ?Collected: ? 01/28/2021 1101 ? Ordering Location: ? [place] [address] Family ? Received: ?01/28/2021 1200 ? Medicine ? First Screen: ?Manzanares, Elena D, CT ? (ASCP) ? Specimen: ?Pap Test, Routine, Cervix/Endocervix ? 02/10/2021 10:26 AM CDT [facility] Pap Specimen Adequacy Satisfactory for evaluation, endocervical/lebron sformation zone component present. 02/10/2021 10:26 AM CDT [facility] Pap Interpretation Negative for intraepithelial lesion or malignancy (NILM). 02/10/2021 10:26 AM CDT [facility] Pap Other Findings Fungal organisms morphologically consistent with Jaylyn spp. 02/10/2021 10:26 AM CDT [facility] Pap Disclaimer The Pap test is a screening test designed to aid in the detection of cervical cancer and its precursor lesions. It is not a diagnostic procedure and should not be used as the sole means of detecting cervical cancer. Both false-positive and false-negative results may occur. 02/10/2021 10:26 AM CDT [facility] Gross Description The specimen is received in SurePath fixative and properly labeled. 1 Pap-stained SurePath slide is prepared. 02/10/2021 10:26 AM CDT [facility] Embedded Images 10:26 AM CDT [facility] Other Specimen Type ENTIRE ENDOCERVIX / Unknown 01/28/2021 11:01 AM CDT 01/28/2021 12:00 PM CDT Comment:LMP: Patient's last menstrual period was 01/21/2021 (lmp unknown). Patricia Da Silva PA-C LAB PATHOLOGY Performing Organization Address City/[facility] Co de Phone Number [address] * HIV 1/2 Ag/Ab 4th Generation (12/28/2017 4:27 PM CDT) HIV-1 p24 Ag and HIV-1/HIV-2 Ab Nonreactive Nonreactive PN SOFT 12/28/2017 4:27 PM CDT 12/28/2017 9:20 PM CDT Narrative PN SOFT - 12/28/2017 10:11 PM [place] [address] CLIA number [id number] Patricia Da Silva PA-C LAB_1 Performing Organization Address City/[facility]/ZIP Co de Phone Number PN SOFT [address] [place] [address] [place], [place] [address] from Last 3 Months or Most Recently Relevant to Health Maintenance Care Teams Hydraulic Bull Riveter Operator Relationship Specialty Start Date End Date Patricia Da Silva PA-C [address] [place] [address] PCP - General 10/13/15
== END 2023-08-25 09:02 | disposition home or self-care (01) ==
LOC: NFLDREF 08-26 07:21
PROVIDERS: Visit Provider Obstetrics & Gynecology
DX: Z34.90 Encounter for supervision of normal pregnancy, unspecified, unspecified trimester (principal)
CPT/HCPCS: 84702

== ENCOUNTER 2023-08-30 13:50 | Outpatient (CLI) | payer BC, SELFPAY ==
--- OUTSIDE RECORDS SUMMARY | 2023-08-30 13:52 | XMS_ITS | Clinical Summary ---
Author Name Unknown Organization [facility] Address [address] [place] [address] Care Team Providers Care Food Service Steward Name Role Phone Patricia Da Silva PA-C Primary Care Provider [phone] Source Comments You are receiving this document as you are listed as the primary care provider,follow-up provider, or the patient has been referred to you for consultation.This is in compliance with the Medicare and[facility] E[facility]cent[facility],which states Providers who transition [...] series) 09/09/2003,04/10/2003,03/07/2003 Influenza IIV4 (Quadrivalent ) 0.5mL (91055) 06/02/2020,05/23/2019,05/17/2018, 017,05/19/2016,06/18/2015 MMR 05/13/2012,03/07/2003 Tdap 10/11/2011 Family [...] Comments Blood Pressure 132/87 06/17/2021 1:50 PM TUFTING CREELER Pulse 102 06/17/2021 1:50 PM TUFTING CREELER Temperature 37 ??C (98.6 ??F) 01/13/2021 8:02 AM CDT Respiratory Rate 16 06/17/2021 1:44 PM TUFTING CREELER Oxygen Saturation - - Inhaled Oxygen Concentration - - Weight 63 kg (139 lb) 06/17/2021 1:44 PM TUFTING CREELER Height 157.5 cm (5' 2) 06/17/2021 1:44 PM TUFTING CREELER Body Mass Index 25.42 06/17/2021 1:44 PM TUFTING CREELER Plan of Treatment Health Maintenance Due Date Last Done Comments Hep C Screening (Preventive Services) 1990 Adult Preventive Visit 01/28/2023 , 07/27/2019, 12/28/2017 COVID-19 Vaccine ( season) 2023 Influenza (#1) 2023 06/02/2020, 05/11, 05/17/2018, Additional history exists Cervical Cancer Screening 01/28/2026 01/28/2021, DTaP/Tdap/Td (4 - Tdap) 02/05/2027 02/06/20, 10/11/2011, 03/07/2003, Additional history exists Zoster/Shingles (1 of 2) 2040 HepB Completed 09/09/2003, 07/2002, 03/07/2003 HPV Vaccine Completed 12/25/2014, 09/2013, 10/20/2010, Additional history exists HepA Aged Out 12/25/2014, 10/20/2010 No lo nger eligible based on patient's age to complete [...] AM CDT) Case Report Pap ? Case: [id number] ? Authorizing Provider: ??Patricia Da Silva PA-C ?Collected: ? 01/28/2021 1101 ? Ordering Location: ? [place] [address] Family ? Received: ?01/28/2021 1200 ? Medicine ? First Screen: ?Manzanares, Elena D, CT ? (ASCP) ? Specimen: ?Pap Test, Routine, Cervix/Endocervix ? 02/10/2021 10:26 AM CDT [facility] Pap Specimen Adequacy Satisfactory for evaluation, endocervical/lebron sformation zone component present. 02/10/2021 10:26 AM CDT [facility] Pap Interpretation Negative for intraepithelial lesion or malignancy (NILM). 02/10/2021 10:26 AM CDT [facility] Pap Other Findings Fungal organisms morphologically consistent with Jaylyn spp. 02/10/2021 10:26 AM CDT [facility] Pap Disclaimer The Pap test is a screening test designed to aid in the detection of cervical cancer and its precursor lesions. It is not a diagnostic procedure and should not be used as the sole means of detecting cervical cancer. Both false-positive and false-negative results may occur. 02/10/2021 10:26 AM CDT [facility] Gross Description The specimen is received in SurePath fixative and properly labeled. 1 Pap-stained SurePath slide is prepared. 02/10/2021 10:26 AM CDT [facility] Embedded Images 10:26 AM CDT [facility] Other Specimen Type ENTIRE ENDOCERVIX / Unknown 01/28/2021 11:01 AM CDT 01/28/2021 12:00 PM CDT Comment:LMP: Patient's last menstrual period was 01/21/2021 (lmp unknown). Patricia Da Silva PA-C LAB PATHOLOGY Performing Organization Address City/[facility] Co de Phone Number [address] * HIV 1/2 Ag/Ab 4th Generation (12/28/2017 4:27 PM CDT) HIV-1 p24 Ag and HIV-1/HIV-2 Ab Nonreactive Nonreactive PN SOFT 12/28/2017 4:27 PM CDT 12/28/2017 9:20 PM CDT Narrative PN SOFT - 12/28/2017 10:11 [place] [address] CLIA number [id number] Patricia DaS ilva PA-C LAB_1 Performing Organization Address City/[facility]/ZIP Co de Phone Number PN SOFT [address] [place], [place] [address] [address] from Last 3 Months or Most Recently Relevant to Health Maintenance Care Teams Food Service Steward Relationship Specialty Start Date End Date Patricia Da Silva, RADHAC [address] [place] [address] PCP - General 10/13/15
--- NOTE | 2023-08-30 14:00 | US_ITS ---
Final Report Patient: JEFF ANSARI Facility:?[facility] Patient ID:?[id number] Site Patient ID:?[id number]. Site :?1990 Study:?US OB Pelvis -08/30/2023 2:40:43 PM Ordering Physician:?NONI ISAAC Final Report: INDICATION: Bleeding in early COMPARISON: None. TECHNIQUE: Real-time christopher-scale imaging of the pelvis was performed. FINDINGS: Intrauterine gestational sac is present containing a pole. The crown-rump length is 5 millimeters with a sonographic gestational age of 6 weeks 1 day and sonographic due date of 04/23/2024. heart rate 113 beats per minute. Normal yolk sac. Both ovaries normal. No subchorionic hemorrhage. IMPRESSION: Single living early IUP measuring 6 weeks 1 day and sonographic due date 04/23/2024. heart rate 113 beats per minute. No hemorrhage. Dictated by Dejuan Jung MD @ 08/31/2023 6:19:36 AM (Electronic Signature)
== END 2023-08-30 13:51 | disposition home or self-care (01) ==
LOC: US 13:50
PROVIDERS: Visit Provider Obstetrics & Gynecology
DX: O20.9 Hemorrhage in early pregnancy, unspecified (principal); Z3A.01 Less than 8 weeks gestation of pregnancy
CPT/HCPCS: 76817

== ENCOUNTER 2023-09-08 08:07 | Outpatient (CLI) | payer BC, SELFPAY ==
--- NOTE | 2023-09-08 08:15 | US_ITS ---
Patient: JEFF ANSARI Facility:?[facility] Patient ID:?[id number] Site Patient ID:?[id number]. Site :?1990 Study:?US-OB Pelvis DATING AND VIABILITY-09/08/2023 8:46:00 AM Ordering Physician:?SAROJ DAVIDSON Final Report: INDICATION: Follow-up viability COMPARISON: 08/30/2023 TECHNIQUE: Real-time christopher-scale imaging of the pelvis was performed. FINDINGS: Sonographic imaging demonstrates a single living intrauterine gestation. The embryo demonstrates a regular cardiac rate measuring 154 beats per minute. The embryo`s crown-rump length measurement of 1.3 cm corresponds to a gestational age of 7 weeks 3 days with a sonographic due date of 04/23/2024. There is a normal-appearing yolk sac. There are no gross abnormalities noted within the embryo at this early state of development. The gestational sac has a normal appearance. There is no evidence of a perigestational hemorrhage. The amount of fluid within the sac appears appropriate for gestational age. The cervix is closed. The myometrium appears normal. Left ovary not visualized. Corpus luteal cyst right ovary. There are no suspicious fluid collections noted in the cul-de-sac. IMPRESSION: Normal first trimester OB ultrasound exam. Gestational age calculated at 7 weeks 3 days with a sonographic due date of 04/23/2024. Dictated by Dejuan Jung MD @ 09/08/2023 9:31:25 AM Signed by:?Dejuan Jung MD @09/08/2023 9:31:25 AM (Electronic Signature)
== END 2023-09-08 08:08 | disposition home or self-care (01) ==
LOC: US 08:08
PROVIDERS: Visit Provider Physician Assistant
DX: Z34.91 Encounter for supervision of normal pregnancy, unspecified, first trimester (principal); Z3A.01 Less than 8 weeks gestation of pregnancy
CPT/HCPCS: 76817; 86703; 86706; 86803; 87086; 87340; 87491; 87591

== ENCOUNTER 2023-09-08 09:23 | Outpatient (CLI) | payer BC, SELFPAY ==
[2023-09-08 13:41] LABS: Chlamydia DNA Amplified* NOT DETECTED (No Detected); GC DNA Amplified* NOT DETECTED (No Detected)
== END 2023-09-08 09:24 | disposition home or self-care (01) ==
PROVIDERS: Visit Provider Physician Assistant
DX: Z34.91 Encounter for supervision of normal pregnancy, unspecified, first trimester (principal)
CPT/HCPCS: 86592; 86703; 86704; 86706; 86762; 86787; 86803; 86850; 86900; 86901; 87086; 87340; 87491; 87591

== ENCOUNTER 2023-12-09 07:58 | Outpatient (CLI) | payer BC, SELFPAY ==
--- NOTE | 2023-12-09 08:15 | CRLHL7_ITS ---
For Patients: As a result of the Century Cures Act, medical imaging exams and procedure reports are released immediately into your electronic medical record. You may view this report before your referring provider. If you have questions, please contact your health care provider. INDICATION: Evaluate anatomy. COMPARISON: 09/08/2023 TECHNIQUE: Real time christopher scale imaging of the fetus was performed as well as color Doppler analysis of the umbilical vessels. FINDINGS: Sonographic imaging demonstrates a single living intrauterine gestation. Fetus demonstrates a regular cardiac rate of 138 beats per minute. Fetus has a variable position. The placenta lies anteriorly without evidence of placenta previa. Edge of the placenta is located 5.5 cm from the internal cervical os. Amniotic fluid volume appears normal. Single deepest vertical pocket: 4.7 cm. The cervix is closed and measures 3.2 cm in length. The composite ultrasound gestational age is calculated at 20 weeks 4 days with an estimated sonographic due date of 04/23/2024. The estimated weight is 375 grams which lies at the 55th %. The following biometric measurements were obtained: Biparietal diameter: 4.9 cm/20 weeks 5 days 55th% Head circumference: 18.1 cm/20 weeks 3 days 38th% Abdominal circumference: 15.9 cm/21 weeks 0 days 60th% Femur length: 3.3 cm/20 weeks 3 days 38th% The HC/AC ratio measures: 1.13 range (1.07-1.25) On anatomic survey, there is a normal appearance of the cerebral ventricles, cavum septi pellucidi, cisterna magna and cerebellum. The nose, lips, and facial profile appear normal. The cervical, thoracic and lumbar spine are well visualized and appear normal. There is a normal four-chamber heart view and the left and right ventricular outflow tracts appear normal. The diaphragm and stomach appear normal. The kidneys and bladder also appear normal. There is a normal three-vessel cord and cord insertion site. The four extremities appear normal. IMPRESSION: Normal OB ultrasound exam with concordance of clinical and sonographic dating. No intrinsic abnormalities noted on anatomic survey. Dictated by Dejuan Jung MD @ 12/11/2023 6:26:38 AM (Electronically Signed)
== END 2023-12-09 07:59 | disposition home or self-care (01) ==
LOC: US 07:58
PROVIDERS: Visit Provider Obstetrics & Gynecology
DX: Z34.92 Encounter for supervision of normal pregnancy, unspecified, second trimester (principal); Z3A.20 20 weeks gestation of pregnancy
CPT/HCPCS: 76805

== ENCOUNTER 2024-01-31 12:44 | Outpatient (CLI) | payer BC, SELFPAY ==
--- OUTSIDE RECORDS SUMMARY | 2024-01-31 12:46 | XMS_ITS | Clinical Summary ---
Author Organization [employer] [facility] Address [address] [place] [address] Care Team Providers Care Air Traffic Control Manager Name Role Phone Rekha Patricia Adams PA-C Primary Care Provider Source Comments You are receiving this document as you are listed as the primary care provider,follow-up provider, or the patient has been referred to you for consultation.This is in compliance with the Medicare and[facility] EHR Incentive Program,which states Providers who transition their patient to another setting of careor provider of care or refers their patient to another provider of care shouldprovide summary care record for each transition of care or referral. [address] Allergies No known active allergies Medications Medication [...] series) 09/09/2003,04/10/2003,03/07/2003 Influenza IIV4 (Quadrivalent ) 0.5mL (42980) 06/02/2020,05/23/2019,05/17/2018, 017,05/19/2016,06/18/2015 MMR 05/13/2012,03/07/2003 Tdap 10/11/2011 Family [...] Comments Blood Pressure 132/87 06/17/2021 1:50 PM PRODUCT INTRODUCTION MANAGER Pulse 102 06/17/2021 1:50 PM PRODUCT INTRODUCTION MANAGER Temperature 37 ??C (98.6 ??F) 01/13/2021 8:02 AM CDT Respiratory Rate 16 06/17/2021 1:44 PM PRODUCT INTRODUCTION MANAGER Oxygen Saturation - - Inhaled Oxygen Concentration - - Weight 63 kg (139 lb) 06/17/2021 1:44 PM PRODUCT INTRODUCTION MANAGER Height 157.5 cm (5' 2) 06/17/2021 1:44 PM PRODUCT INTRODUCTION MANAGER Body Mass Index 25.42 06/17/2021 1:44 PM PRODUCT INTRODUCTION MANAGER Plan of Treatment Health Maintenance Due Date Last Done Comments Hep C Screening (Preventive Services) 1990 Adult Preventive Visit 01/28/2023 1, 07/27/2019, 12/28/2017 COVID-19 Vaccine ( season) 2023 Influenza (#1) 2024 06/02/2020, 05/11, 05/17/2018, Additional history exists Cervical [...] AM CDT) Case Report Pap ? Case: [id number] ? Authorizing Provider: ??Patricia Da Silva PA-C ?Collected: ? 01/28/2021 1101 ? Ordering Location: ? [place] [address] Family ? Received: ?01/28/2021 1200 ? Medicine [...] Silva PA-C LAB PATHOLOGY Performing Organization Address City/[facility] Co de Phone Number [address] * HIV 1/2 Ag/Ab 4th Generation (12/28/2017 4:27 PM CDT) HIV-1 p24 Ag and HIV-1/HIV-2 Ab Nonreactive Nonreactive PN SOFT 12/28/2017 4:27 PM CDT 12/28/2017 9:20 PM CDT Narrative PN SOFT - 12/28/2017 10:11 PM CDT Performed at [facility], [address] [place] [address] CLIA number [id number] Patricia Da Silva PA-C LAB_1 Performing Organization Address City/[facility]/ZIP Co de Phone Number PN SOFT [address] [place], [place] [address] [place] [address] from Last 3 Months or Most Recently Relevant to Health Maintenance Care Teams Air Traffic Control Manager Relationship Specialty Start Date End Date Patricia Da Silva PA-C [address] [place] [address] PCP - General 10/13/15
== END 2024-01-31 12:45 | disposition home or self-care (01) ==
LOC: NFLDREF 12:45
PROVIDERS: Visit Provider Obstetrics & Gynecology
DX: O99.013 Anemia complicating pregnancy, third trimester (principal); Z3A.28 28 weeks gestation of pregnancy; Z11.3 Encounter for screening for infections with a predominantly sexual mode of transmission
CPT/HCPCS: 82728; 86592

== ENCOUNTER 2024-02-10 08:05 | Outpatient (CLI) | payer BC, SELFPAY ==
--- OUTSIDE RECORDS SUMMARY | 2024-02-13 08:23 | XMS_ITS | Clinical Summary ---
Author Organization [employer] Address [address] [place] [address] Care Team Providers Care Hammer Adjuster Name Role Phone Rekha Patricia Adams PA-C Primary Care Provider Source Comments You are receiving this document as you are listed as the primary care provider,follow-up provider, or the patient has been referred to you for consultation.This is in compliance with the Medicare and[facility] E[facility] Incentive Program,which states Providers who transition their patient to another setting of careor provider of care or refers their patient to another provider of care shouldprovide summary care record for each transition of care or referral. [employer] Allergies No known active allergies Medications Medication [...] series) 09/09/2003,04/10/2003,03/07/2003 Influenza IIV4 (Quadrivalent ) 0.5mL (23387) 06/02/2020,05/23/2019,05/17/2018, 017,05/19/2016,06/18/2015 MMR 05/13/2012,03/07/2003 Tdap 10/11/2011 Family [...] Comments Blood Pressure 132/87 06/17/2021 1:50 PM PATENT LAW SPECIALIST Pulse 102 06/17/2021 1:50 PM PATENT LAW SPECIALIST Temperature 37 ??C (98.6 ??F) 01/13/2021 8:02 AM CDT Respiratory Rate 16 06/17/2021 1:44 PM PATENT LAW SPECIALIST Oxygen Saturation - - Inhaled Oxygen Concentration - - Weight 63 kg (139 lb) 06/17/2021 1:44 PM PATENT LAW SPECIALIST Height 157.5 cm (5' 2) 06/17/2021 1:44 PM PATENT LAW SPECIALIST Body Mass Index 25.42 06/17/2021 1:44 PM PATENT LAW SPECIALIST Plan of Treatment Health Maintenance Due Date [...] AM CDT) Case Report Pap ? Case: [id number] ? Authorizing Provider: ??Patricia Da Silva PA-C ?Collected: ? 01/28/2021 1101 ? Ordering Location: ? [place] [address] Family ? Received: ?01/28/2021 1200 ? Medicine ? First Screen: ?Manzanares, Elena D, CT ? (ASCP) ? Specimen: ?Pap Test, Routine, Cervix/Endocervix ? 02/10/2021 10:26 AM CDT [facility] Pap Specimen Adequacy Satisfactory for evaluation, endocervical/lebron sformation zone component present. 02/10/2021 10:26 AM CDT [facility] Pap Interpretation Negative for intraepithelial lesion or malignancy (NILM). 02/10/2021 10:26 AM CDT [facility] Pap Other Findings Fungal organisms morphologically consistent with Jaylyn spp. 02/10/2021 10:26 AM CDT [facility] Pap Disclaimer The Pap test is a screening test designed to aid in the detection of cervical cancer and its precursor lesions. It is not a diagnostic procedure and should not be used as the sole means of detecting cervical cancer. Both false-positive and false-negative results may occur. 02/10/2021 10:26 AM CDT [facility] Gross Description The specimen is received in SurePath fixative and properly labeled. 1 Pap-stained SurePath slide is prepared. 02/10/2021 10:26 AM CDT [facility] Embedded Images 10:26 AM CDT [facility] Other Specimen Type ENTIRE ENDOCERVIX / Unknown 01/28/2021 11:01 AM CDT 01/28/2021 12:00 PM CDT Comment:LMP: Patient's last menstrual period was 01/21/2021 (lmp unknown). Patricia Da Silva PA-C LAB PATHOLOGY Performing Organization Address City/[facility] Co de Phone Number [address] * HIV 1/2 Ag/Ab 4th Generation (12/28/2017 4:27 PM CDT) HIV-1 p24 Ag and HIV-1/HIV-2 Ab Nonreactive Nonreactive PN SOFT 12/28/2017 4:27 PM CDT 12/28/2017 9:20 PM CDT Narrative PN SOFT - 12/28/2017 10:11 PM CDT Performed at [facility], [address] [place] [address] CLIA number [id number] Patricia Da Silva PA-C LAB_1 Performing Organization Address City/[facility]/ZIP Co de Phone Number PN SOFT [address] [place], [place] [address] [place] [address] from Last 3 Months or Most Recently Relevant to Health Maintenance Care Teams Hammer Adjuster Relationship Specialty Start Date End Date Patricia Da Silva PA-C [address] [place] [address] PCP - General 10/13/15
== END 2024-02-10 08:06 | disposition home or self-care (01) ==
LOC: NFLDREF 02-13 08:22
PROVIDERS: Visit Provider Obstetrics & Gynecology
DX: R73.09 Other abnormal glucose (principal)
CPT/HCPCS: 82951; 82952

== ENCOUNTER 2024-03-28 12:07 | Outpatient (CLI) | payer MEDICAID, SELFPAY ==
--- OUTSIDE RECORDS SUMMARY | 2024-03-28 12:09 | XMS_ITS | Clinical Summary ---
Author Organization [employer] Address [address] [place] [address] Care Team Providers Care Case Assembler Name Role Phone Rekha Patricia Adams PA-C Primary Care Provider [phone] Source Comments You are receiving this document as you are listed as the primary care provider,follow-up provider, or the patient has been referred to you for consultation.This is in compliance with the Medicare and[facility] EHR Incentive Program,which states Providers who transition their patient to another setting of careor provider of care or refers their patient to another provider of care shouldprovide summary care record for each transition of care or referral. [employer] Allergies No known active allergies Medications Medication [...] series) 09/09/2003,04/10/2003,03/07/2003 Influenza IIV4 (Quadrivalent ) 0.5mL (29791) 06/02/2020,05/23/2019,05/17/2018, 017,05/19/2016,06/18/2015 MMR 05/13/2012,03/07/2003 Tdap 10/11/2011 Family [...] Comments Blood Pressure 132/87 06/17/2021 1:50 PM DRESSING ROOM ATTENDANT Pulse 102 06/17/2021 1:50 PM DRESSING ROOM ATTENDANT Temperature 37 ??C (98.6 ??F) 01/13/2021 8:02 AM CDT Respiratory Rate 16 06/17/2021 1:44 PM DRESSING ROOM ATTENDANT Oxygen Saturation - - Inhaled Oxygen Concentration - - Weight 63 kg (139 lb) 06/17/2021 1:44 PM DRESSING ROOM ATTENDANT Height 157.5 cm (5' 2) 06/17/2021 1:44 PM DRESSING ROOM ATTENDANT Body Mass Index 25.42 06/17/2021 1:44 PM DRESSING ROOM ATTENDANT Plan of Treatment Health Maintenance Due Date Last Done Comments Hep C Screening (Preventive Services) 1990 Adult Preventive Visit 01/28/2023 1, 07/27/2019, 12/28/2017 COVID-19 Vaccine ( season) 2024 Influenza (#1) 2024 06/02/2020, 05/11, 05/17/2018, Additional [...] AM CDT) Case Report Pap ? Case: [id number] ? Authorizing Provider: ??Patricia Da Silva PA-C ?Collected: ? 01/28/2021 1101 ? Ordering Location: ? [place] [address] Family ? Received: ?01/28/2021 1200 ? Medicine ? First Screen: ?Manzanares, Elena D, CT ? (ASCP) ? Specimen: ?Pap Test, Routine, Cervix/Endocervix ? 02/10/2021 10:26 AM CDT [facility] Pap Specimen Adequacy Satisfactory for evaluation, endocervical/lebron sformation zone component present. 02/10/2021 10:26 AM CDT [facility] Pap Interpretation Negative for intraepithelial lesion or malignancy (NILM). 02/10/2021 10:26 AM CDT [facility] Pap Other Findings Fungal organisms morphologically consistent with Jaylny spp. 02/10/2021 10:26 AM CDT [facility] Pap Disclaimer The Pap test is a screening test designed to aid in the detection of cervical cancer and its precursor lesions. It is not a diagnostic procedure and should not be used as the sole means of detecting cervical cancer. Both false-positive and false-negative results may occur. 02/10/2021 10:26 AM CDT [facility] Gross Description The specimen is received in SurePath fixative and properly labeled. 1 Pap-stained SurePath slide is prepared. 02/10/2021 10:26 AM CDT [facility] Embedded Images 10:26 AM CDT [facility] Other Specimen Type ENTIRE ENDOCERVIX / Unknown 01/28/2021 11:01 AM CDT 01/28/2021 12:00 PM CDT Comment:LMP: Patient's last menstrual period was 01/21/2021 (lmp unknown). Patricia Da Silva PA-C LAB PATHOLOGY Performing Organization Address City/[facility] Co de Phone Number [address] * HIV 1/2 Ag/Ab 4th Generation (12/28/2017 4:27 PM CDT) HIV-1 p24 Ag and HIV-1/HIV-2 Ab Nonreactive Nonreactive PN SOFT 12/28/2017 4:27 PM CDT 12/28/2017 9:20 PM CDT Narrative PN SOFT - 12/28/2017 10:11 PM CDT Performed at [facility], [address] [place] [address] CLIA number [id number] Patricia Da Silva PA-C LAB_1 Performing Organization Address City/[facility]/ZIP Co de Phone Number PN SOFT [address] [place], [place] [address] [place] [address] from Last 3 Months or Most Recently Relevant to Health Maintenance Care Teams Case Assembler Relationship Specialty Start Date End Date Patricia Da Silva PA-C [address] [place] [address] PCP - General 10/13/15
[2024-03-29 15:06] LABS: Strep B DNA Probe Negative (Negative)
[2024-03-29 23:55] LABS: Strep B Susceptibility Needed? No
== END 2024-03-28 12:08 | disposition home or self-care (01) ==
LOC: NFLDREF 12:07
PROVIDERS: Visit Provider Obstetrics & Gynecology
DX: Z34.83 Encounter for supervision of other normal pregnancy, third trimester (principal)
CPT/HCPCS: 87081; 87653

== ENCOUNTER 2024-04-09 05:41 | Inpatient (IN) | payer MEDICAID, SELFPAY ==
[2024-04-09] VITALS (27 sets, daily range): BP systolic 107–117; BP diastolic 61–75; PULSE 61–90; RESP 15–19; TEMP 36.6–36.8; O2SAT 96–100
--- OUTSIDE RECORDS SUMMARY | 2024-04-09 05:44 | XMS_ITS | Clinical Summary ---
Author Organization [employer] Address [address] [place] [address] Care Team Providers Care Sales Exec Name Role Phone Rekha Patricia Adams PA-C Primary Care Provider [phone] Source Comments You are receiving this document as you are listed as the primary care provider,follow-up provider, or the patient has been referred to you for consultation.This is in compliance with the Medicare and[facility] EHR Incentive Program,which states Providers who transition their patient to another setting of careor provider of care or refers their patient to another provider of care shouldprovide summary care record for each transition of care or referral. Back& Allergies No known active allergies Medications Medication [...] series) 09/09/2003,04/10/2003,03/07/2003 Influenza IIV4 (Quadrivalent ) 0.5mL (00310) 06/02/2020,05/23/2019,05/17/2018, 017,05/19/2016,06/18/2015 MMR 05/13/2012,03/07/2003 Tdap 10/11/2011 Family [...] Comments Blood Pressure 132/87 06/17/2021 1:50 PM STUDIO OPERATIONS MANAGER Pulse 102 06/17/2021 1:50 PM STUDIO OPERATIONS MANAGER Temperature 37 ??C (98.6 ??F) 01/13/2021 8:02 AM CDT Respiratory Rate 16 06/17/2021 1:44 PM STUDIO OPERATIONS MANAGER Oxygen Saturation - - Inhaled Oxygen Concentration - - Weight 63 kg (139 lb) 06/17/2021 1:44 PM STUDIO OPERATIONS MANAGER Height 157.5 cm (5' 2) 06/17/2021 1:44 PM STUDIO OPERATIONS MANAGER Body Mass Index 25.42 06/17/2021 1:44 PM STUDIO OPERATIONS MANAGER Plan of Treatment Health Maintenance Due [...] AM CDT) Case Report Pap ? Case: [id number] ? Authorizing Provider: ??Patricia Da Silva PA-C ?Collected: ? 01/28/2021 1101 ? Ordering Location: ? [place] [address] Family ? Received: ?01/28/2021 1200 ? Medicine ? First Screen: ?Manzanares, Elena D, CT ? (ASCP) ? Specimen: ?Pap Test, Routine, Cervix/Endocervix ? 02/10/2021 10:26 AM CDT [facility] Pap Specimen Adequacy Satisfactory for evaluation, endocervical/lebron sformation zone component present. 02/10/2021 10:26 AM CDT [facility] Pap Interpretation Negative for intraepithelial lesion or malignancy (NILM). 02/10/2021 10:26 AM CDT [facility] Pap Other Findings Fungal organisms morphologically consistent with Jaylyn spp. 02/10/2021 10:26 AM CDT [facility] Pap Disclaimer The Pap test is a screening test designed to aid in the detection of cervical cancer and its precursor lesions. It is not a diagnostic procedure and should not be used as the sole means of detecting cervical cancer. Both false-positive and false-negative results may occur. 02/10/2021 10:26 AM CDT [facility] Gross Description The specimen is received in SurePath fixative and properly labeled. 1 Pap-stained SurePath slide is prepared. 02/10/2021 10:26 AM CDT [facility] Embedded Images 10:26 AM CDT [facility] Other Specimen Type ENTIRE ENDOCERVIX / Unknown 01/28/2021 11:01 AM CDT 01/28/2021 12:00 PM CDT Comment:LMP: Patient's last menstrual period was 01/21/2021 (lmp unknown). Patricia Da Silva PA-C LAB PATHOLOGY Performing Organization Address City/[facility] Co de Phone Number [address] * HIV 1/2 Ag/Ab 4th Generation (12/28/2017 4:27 PM CDT) HIV-1 p24 Ag and HIV-1/HIV-2 Ab Nonreactive Nonreactive PN SOFT 12/28/2017 4:27 PM CDT 12/28/2017 9:20 PM CDT Narrative PN SOFT - 12/28/2017 10:11 PM CDT Performed at [facility], [address] [place] [address] CLIA number [id number] Patricia Da Silva PA-C LAB_1 Performing Organization Address City/[facility]/ZIP Co de Phone Number PN SOFT [address] [place], [place] [address] [address] from Last 3 Months or Most Recently Relevant to Health Maintenance Care Teams Sales Exec Relationship Specialty Start Date End Date Patricia Da Silva PA-C [address] [place] [address] PCP - General 10/13/15
[2024-04-09] MEDS: LACTATED RINGERS 1000 ML 1,000 ML 900 ML IV (06:10)
[2024-04-09 06:21] LABS: Hemoglobin* 10.9 gm/dL (12.0-16.0)
--- NOTE | 2024-04-09 07:19 | W.PM.H&PU ---
History & Physical Update History & Physical Update H&P Reviewed and patient assessed: No changes noted
[2024-04-09] MEDS: CEFAZOLIN 2 GM INJ IVP (07:38)
[2024-04-09] MEDS: KETOROLAC 30 MG/ML inj IVP ×3 (10:27→23:06)
--- NOTE | 2024-04-09 10:49 | W.ANESCHARGE ---
Anesthesia Charges Start Date/Time Anesthesia Start Date: 04/09/24 Anesthesia Start Time: 07:22 Stop Date/Time Anesthesia Stop Date: 04/09/24 Anesthesia Stop Time: 10:24
[2024-04-09 10:56] LABS: Basophils Percent Auto 0.1 % (0.0-3.0); Eosinophils Percent Auto 0.4 % (0.0-7.0); Hematocrit 27.5 % (33.0-51.0); Hemoglobin* 9.1 gm/dL (12.0-16.0); Immature Granulocytes Pct Auto 0.7 %; Lymphocytes Percent Auto 9.6 % (20-44); Mean Corpuscular HGB Conc 33 gm/dL (32-36); Mean Corpuscular Hemoglobin 31 pg (26-34); Mean Corpuscular Volume 93 fL (80-100); Monocytes Percent Auto 5.2 % (0.0-11.0); Platelet Count* 255 K/uL (140-440); RDW Coefficient of Variation % 13.3 % (11.5-15.5); Red Blood Count 2.95 m/uL (4.00-5.20); White Blood Count* 17.38 K/uL (4.50-11.00)
[2024-04-09 10:58] LABS: Slide Review Reflex No
[2024-04-09 11:20] LABS: Fibrinogen* 472 mg/dL (200-450); INR 1.05 (0.91-1.10); Partial Thromboplastin Time* 28 Seconds (23-33); Prothrombin Time 14.3 Seconds
--- NOTE | 2024-04-09 11:23 | P.NB_ITS ---
Nerve Block Nerve Block Time Seen by Provider: 10:17 Date Seen: 04/09/24 Type of block requested by surgeon for post-operative analgesia: TAP Side: bilateral Time out performed: Yes Verification of patient name: Yes Verification of date of : Yes Continuous monitoring Was continuous monitoring of O2 sat, B/P, rn cardiac cath, recorded every 15 minutes?: Yes Procedure Checklist: sterile prep, needles and gloves Ultrasound guided. Images saved: Yes Medications given in 5ml increments after negative aspiration: Marcaine %: 0.25 mL: 30 Needle gauge: 21 and Exparel mL: 10 Needle gauge: 21 Patient tolerated procedure well: Yes Block Charges Block Charge (with Pro Fee): TAP Bilateral Use of Ultrasound Machine for Block: Yes- US Guidance/pain block
--- NOTE | 2024-04-09 11:24 | W.ANESCHARGE ---
Anesthesia Charges Start Date/Time Anesthesia Start Date: 04/09/24 Anesthesia Start Time: 07:22 Stop Date/Time Anesthesia Stop Date: 04/09/24 Anesthesia Stop Time: 10:24
--- NOTE | 2024-04-09 11:31 | P.OBPRC_ITS ---
Procedure Date of procedure: 04/09/24 Pre-op diagnosis: Thirty-eight weeks gestation. History of sections x2. History of severe pelvic adhesions. History of right distal salpingectomy for ectopic. Post-op diagnosis: same Procedure Done: Global Will [facility] bill your pro fee for this procedure?: Yes Blood Loss Measurement Type: QBL (1608 mL.) Bakri Used: No Surgeon: Joanna Bolivar MD Tool Salvage Worker: Marya Jorgensen MD Anesthesia Type: Spinal and TAP Block Findings: Extensive adhesions involving rectus muscles, fascia, peritoneum, omentum, and uterine serosa. Essentially, the lower uterine segment was completely adherent to the anterior abdominal wall, extending to the broad ligament on the left and completely obliterating normal tissue planes making visualization of the bladder possible. Anterior placenta. Live-born male infant, cephalic presentation, weight 3380 g. Apgars eight nine at one and 5 minutes respectively. Procedure Name: Classical section with extensive lysis of adhesions done through Pfannenstiel incision. Procedure Description: Additional aquatics assistant department head: CLAIRE Lay. After obtaining informed consent, the patient was taken to the operating room where spinal anesthesia was obtained and found to be adequate. She was prepared and draped in the normal sterile fashion in the dorsal supine position with a leftward tilt. A Pfannenstiel skin incision was made with a scalpel along the line of the patient's previous Pfannenstiel scars. This incision was carried down to the underlying layer of fascia with the Bovie. The fascia was incised in the midline and the incision extended laterally. The superior and inferior aspects of the fascial incision were grasped with Arian clamps, elevated and the underlying rectus muscles dissected off sharply and with electrocautery. This dissection took a considerable amount of time given the dense adhesions. The rectus muscles were then in the midline whe re possible above the serosal adhesions. Omental adhesions to the left of midline were isolated with [place] clamps, divided, and suture ligated with 0 chromic. At least 30 minutes of adhesiolysis was continued to try to separate the uterine serosa from the peritoneum and rectus muscles, and to establish a plane between the uterine serosa and bladder reflection. Ultimately, I was unable to adequately separate the tissues in order to safely make a low- transverse hysterotomy incision. At this point, Dr. Jorgensen scrubbed in to provide assistance. The decision was made to proceed with a classical hysterotomy incision. In order to obtain adequate exposure, the skin excision had to be extended on both sides, and the fascia had to be off of the rectus muscles superiorly another 2-3 cm. The Kei O retractor was then placed into the incision. A vertical midline incision was then made with the scalpel into the upper contractile portion of the myometrium inferior to the fundus and extending to the area of pathologic adhesions inferiorly. Upon entry into the uterus, there was some brisk bleeding from the anterior placenta. I had to reach through the placental tissue to cup the infant's head, which was then delivered was delivered atraumatically, followed by the remainder of the 's body. The nose and mouth were suctioned with the bulb suction. The cord was doubly clamped and cut, and the was handed off the field for evaluation. The placenta was delivered manually. The uterus was cleared of all clots and debris. The uterine incision was reapproximated in three layers: a running locking fashion with 0 Vicryl, an imbricating layer, also locked, of 0 Vicryl over the first, and the third layer in a baseball stitch fashion to reapproximate the uterine serosa. Multiple additional figure of X sutures of 0 Vicryl were needed for hemostasis. There was a serosal tear from adhesive lysis to the right of the hysterotomy incision that also had to be reapproximated in a running locking fashion with 0 Vicryl. Additional interrupted sutures of both 0 Vicryl and 3-0 chromic as well as electrocautery were used were necessary to obtain hemostasis from oozing secondary to the adhesiolysis. The gutters inspected and clots removed. All instruments and retractors were removed. Additional omental adhesions were isolated, doubly clamped, transected, and suture ligated. The subfascial tissues were carefully inspected and hemostasis assured. The rectus muscles were reapproximated in the midline with an interrupted suture of 3-0 Vicryl. The fascia was reapproximated in a running fashion with a looped 0 Maxon suture. The subcutaneous tissues were copiously irrigated. Hemostasis was assured. The subcutaneous fat layer was reapproximated with interrupted sutures of 3-0 plain gut. The skin was closed in a subcuticular fashion with 4-0 Vicryl. Surgical glue and dressing were applied. The patient tolerated the procedure well. Sponge, lap, needle, and instrument counts were reported as correct x2. The patient was taken to the recovery room, awake, and in stable condition. She did receive 2 grams of IV Ancef preoperatively, tranexamic acid 1000 mg IVx2 during the procedure, 40 units IV Pitocin with IV fluids during the procedure, and 30 mg IV Toradol at the conclusion of the procedure. . Complications: None. Pathology: none sent Surgery Debrief Performed: Yes Condition: stable Disposition: floor
[2024-04-10] VITALS (11 sets, daily range): BP systolic 98–121; BP diastolic 58–74; PULSE 87–109; RESP 15–18; TEMP 36.6–36.9; O2SAT 96–99
[2024-04-10] MEDS: ACETAMINOPHEN 500 MG TABLET 1000 MG PO ×3 (03:30→20:04)
[2024-04-10] MEDS: KETOROLAC 30 MG/ML inj IVP ×3 (04:58→16:32)
[2024-04-10 06:37] LABS: Hemoglobin* 8.3 gm/dL (12.0-16.0)
--- NOTE | 2024-04-10 08:05 | P.OBPN_ITS ---
OB - PN:Subj Subjective Time Seen by Provider: 08:07 Date Seen: 04/10/24 Patient comments OB post-: no complaints, pain well controlled and tolerating diet Chauvin infant status: and doing well Chauvin feeding status: exclusively Narrative: Binta feels well.? Her pain is well controlled with current medications.? She has no new complaints.? Urinary output is adequate and she is voiding without difficulty.? Has a good appetite, is tolerating a general diet, is passing flatus, and has not had a bowel movement.? Has moderate amount of rubra lochia.? She is ambulating well.? OB - PN: Obj Exam Physical Exam: Vital signs: Temp Pulse Resp BP Pulse Ox O2 Del Method 98.1 F 87 16 98/58 L 96 Room Air 04/10/24 05:04 04/10/24 05:04 04/10/24 06:49 04/10/24 05:04 04/10/24 05:04 04/10/24 05:04 Narrative: GENERAL APPEARANCE:? normal affect, alert, no distress? MOOD:? appropriate? CHEST:? clear to auscultation and percussion? HEART:? regular rate and rhythm? ABDOMEN:? soft, non-tender the uterine fundus is firm and is appropriate for the stage of recovery. Incision is covered by clean, dry dressing.? PERINEUM:? not examined EXTREMITIES:? normal and no edema? OB - PN: Obj Data Labs Labs: Laboratory Results - last 24 hr 04/09/24 04/10/24 10:50 06:23 WBC 17.38 H RBC 2.95 L Hgb 9.1 L 8.3 L Hct 27.5 L MCV 93 MCH 31 MCHC 33 RDW Coeff of [place] 13.3 Plt Count 255 Neut % (Auto) 84.0 H Lymph % (Auto) 9.6 L [place] % (Auto) 5.2 Eos % (Auto) 0.4 Baso % (Auto) 0.1 Neut # (Auto) 14.60 H Lymph # (Auto) 1.70 [place] # (Auto) 0.90 Eos # (Auto) 0.10 Baso # (Auto) 0.00 Abs Immat Gran (auto) 0.10 Imm/Tot Granulo (auto) 0.7 INR 1.05 APTT 28 Fibrinogen 472 H OB - PN: A/P Delivery Assessment and Plan (1) care and examination of lactating mother: Status: Acute Assessment and Plan: 33 year old on day 1.? (2) Delivery by classical section: Status: Acute (3) Anemia due to acute blood loss: Status: Acute Assessment and Plan: Give IV iron today, ordered. Plan 1. cares.? 2. Anticipate discharge tomorrow.? Plan day: 1 Plan: routine care
[2024-04-10] MEDS: IRON SUCROSE COMPLEX 200 MG in 0.9 % SODIUM CHLORIDE 100 ml 100 ML 440 MG IVPB (10:21)
[2024-04-10] MEDS: OXYCODONE 5 MG TABLET PO ×3 (13:45→22:19)
[2024-04-10] MEDS: DOCUSATE SODIUM 100 MG CAPSULE PO (14:04)
[2024-04-10] MEDS: SIMETHICONE 80 MG TAB.CHEW PO (14:05)
[2024-04-10] MEDS: IBUPROFEN 600 MG TABLET PO (21:11)
[2024-04-10 23:01] LABS: Rapid Plasma Reagin (RPR) Non Reactive (Non Reactive)
[2024-04-11 00:48] VITALS: BP 118/72; PULSE 72; RESP 16; TEMP 36.9; O2SAT 98
[2024-04-11] MEDS: OXYCODONE 5 MG TABLET PO ×2 (06:39→10:52)
[2024-04-11] MEDS: ACETAMINOPHEN 500 MG TABLET 1000 MG PO (06:39)
[2024-04-11] MEDS: IBUPROFEN 600 MG TABLET PO (08:22)
[2024-04-11] MEDS: DOCUSATE SODIUM 100 MG CAPSULE PO (08:22)
--- NOTE | 2024-04-11 08:24 | P.DS_ITS ---
DS: Providers Provider Date Seen: 04/11/24 Date of admission: 04/09/24 05:41 Primary care physician: Not a Local Provider Admitting Clinician: Consuelo Kunz MD Attending Physician on discharge: Delmi Mooney CNM DS: Diagnosis Discharge Diagnosis (1) care and examination of lactating mother: Status: Acute (2) Delivery by classical section: Status: Acute (3) Anemia due to acute blood loss: Status: Acute Exam Narrative: Exam Narrative: GENERAL APPEARANCE:? normal affect, alert, no distress MOOD:? appropriate CHEST:? clear to auscultation HEART:? regular rate and rhythm ABDOMEN:? soft, non-tender the uterine fundus is 1 below Umbilicus, Midline and is appropriate for the stage of recovery. EXTREMITIES:? normal and no edema INCISION: Healing well, no surrounding erythema, abnormal induration or discharge Const: Vital Signs, click to edit/add: Vital Signs - 24 hr 04/10/24 10:20 04/10/24 16:29 04/11/24 00:48 Temperature 97.9 F 98.5 F 98.5 F Pulse Rate [Pulse Oximeter] 89 101 H 72 Respiratory Rate 18 18 16 Blood Pressure [Ri ght Arm] 101/67 121/74 118/72 Pulse Oximetry 99 98 98 Oxygen Delivery Me thod Room Air Room Air Room Air Documenting provider has reviewed patient's vital signs: yes OB - DS: Summary Hospital Course Hospital Course: Binta is a 33 y.o. G 5 P 3 who was admitted to [facility] for repeat c/s. ?She had a section that was complicated by significant adhesions, uterine incision was converted to classical, further complicated by PPH of 1.8 L. She received IV iron yesterday. The patient feels well. ?The pain is well controlled with current medications. ?She has no new complaints. ?She is breast feeding and reports things are going well. the patient has done well.? Vitals have been stable.? She has remained afebrile.? Has a good appetite, is tolerating a general diet. ?She is voiding without difficulty.? She is passing gas and has not had a bowel movement.? She is ambulating and denies any dizziness.? Has small amount of rubra lochia. She is undecided for prevention. Problems: Anemia plan: Discharge home with baby. Follow up in 2 weeks and 6 weeks. , may see if needed Hgb 8.3. IV iron given yesterday. Classical incision Peripartum Data delivery method: Repeat Section Procedures: Procedures Operation Date: 04/09/24 07:15 Actual Procedure Side Surgeon p Repeat , classical incision with excessive lysis of adhesions Not Applicable Joanna Bolivar MD complications: none [place] Infant Gender: Male Infant Discharge Plan: Home Status at Discharge Functional status at discharge: independent ambulation Overall status at discharge: patient is progressing back to baseline Time Spent with Patient Time attestation: Total time spent providing and/or coordinating discharge services: Time spent: Less than 30 minutes Discharge Plan Discharge Disposition: Home, Self-Care Date of Admission: 04/09/24 05:41 Primary Care Provider: Provider,Not a Local Condition: Stable Anticipated Discharge Date/Time: 04/11/24 12:00 Discharge Medications: New docusate sodium 100 mg Capsule 100 mg PO DAILY Qty: 90 0RF ibuprofen 600 mg Tablet 600 mg PO Q6H PRN (Reason: Pain) Qty: 60 0RF oxycodone 5 mg Tablet 5 - 10 mg PO Q4H PRN (Reason: Pain) Qty: 15 0RF acetaminophen 500 mg Tablet 1,000 mg PO Q6H PRN (Reason: Pain) Qty: 0 0RF Continued DHA 200 mg capsule 200 mg PO DAILY Held ferrous sulfate 324 mg (65 mg iron) tablet,delayed release (DR/EC) 324 mg PO QDAY Qty: 60 0RF Hold Instructions: Resume on 04/25/24. Discharge Orders: Discharge Order (Routine); Ordered 04/11/24 Ordered By: Delmi Mooney Patient Education: OB Over the Counter Medication Information, OB /Breast Feeding Additional Instructions: Discharge instructions were reviewed with the patient including signs and symptoms of infection and home going medications Lifting Restrictions: 20 pounds for 6 weeks No not submerge incision under water X 2 weeks? Nothing vaginally for 6 weeks: no tampons or intercourse Do not drive while taking narcotic pain medication(s) Off Work or School for 8 weeks 2-week visit: incision check, discuss infant feeding concerns, review control options and screen for anxiety/depression. 6-week visit for an annual exam. consultation services are available to all mothers and babies for the first year after delivery.? To make an appointment, please call [phone]. Activity Level: Activity as Tolerated Discharge Diet: Regular Follow Up Appointments: [facility] [Provider Group] Forms: [employer] [facility] Info Instructions
[2024-04-11 09:00] VITALS: BP 105/70; PULSE 87; RESP 16; TEMP 36.5; O2SAT 100
== END 2024-04-11 11:45 | disposition home or self-care (01) | DRG 540 ==
PROVIDERS: Admitting Provider Obstetrics & Gynecology; Visit Provider Obstetrics & Gynecology
PROC: 10D00Z0 Extraction of Products of Conception, High, Open Approach (ICD-10-PCS; CPT 59514; principal; 2024-04-09 07:15)
DX: O34.211 Maternal care for low transverse scar from previous cesarean delivery (principal); O99.892 Other specified diseases and conditions complicating childbirth; N73.6 Female pelvic peritoneal adhesions (postinfective); O90.81 Anemia of the puerperium; D62 Acute posthemorrhagic anemia; G89.18 Other acute postprocedural pain; Z78.9 Other specified health status; Z3A.38 38 weeks gestation of pregnancy; Z37.0 Single live birth
CPT/HCPCS: 01961; 36415; 64488; 76942; 85018; 85025; 85384; 85610; 85730; 86592; 86850; 86900; 86901; A9270; C9290; J0665; J0690; J1756; J1885; J2250; J2274; J2371; J2405; J2590; J2704; J3010; J3490; J7120

== ENCOUNTER 2025-06-24 18:26 | Emergency (ER) | payer OTHER, SELFPAY ==
--- NOTE | 2025-06-24 18:47 | CRLHL7_ITS ---
For Patients: As a result of the Century Cures Act, medical imaging exams and procedure reports are released immediately into your electronic medical record. You may view this report before your referring provider. If you have questions, please contact your health care provider. INDICATION: Pain in right lower leg TECHNIQUE: Venous duplex ultrasound of the right lower extremity utilizing compression with christopher-scale, color Doppler, and spectral Doppler imaging. COMPARISON: None FINDINGS: There is no sonographic evidence of deep vein thrombosis in the right common femoral, deep femoral, superficial femoral, popliteal, posterior tibial, peroneal, or contralateral common femoral veins. There is no visualized superficial vein thrombosis. The soft tissues are unremarkable. IMPRESSION: No deep vein thrombosis in the right lower extremity. Dictated by Yefri Nelson MD @ 06/24/2025 7:40:13 PM (Electronically Signed)
[2025-06-24 18:48] VITALS: BP 125/78; PULSE 90; RESP 20; TEMP 36.7; O2SAT 98; BMI 21.8
--- NOTE | 2025-06-24 19:55 | ED.GENADULT ---
HPI - General Adult General Chief complaint: Extremity Pain/Injury, Lower Stated complaint: possible blood clot in right leg Time Seen by Provider: 06/24/25 19:43 History of Present Illness HPI narrative: Pt reports onset of swelling/ painful area on Right lower leg which developed over the last 12 hours. No known injury. Pt is concerned of blood clot. At rest, pain is 1 /10. With palpation pain is 6/10. 35-year-old presenting to emergency department with concern of right lower leg pain. She is experiencing pain and swelling in the right lower leg. This developed today. She does not recall an injury. No fevers. No other rashes or lesions noted. No recent strep. She is not having any chest pain or shortness of breath. No significant swelling otherwise of her leg. Was encouraged to present for evaluation for potential DVT. Related Data Home Medications ?Medication ?Instructions ?Recorded ?Confirmed No Known Home Medications 03/18/25 03/18/25 Allergies Allergy/AdvReac Type Severity Reaction Status Date / Time No Known Allergies Allergy Unknown Verified 03/18/25 08:37 Review of Systems Status of ROS: Reports: 6 or more systems reviewed and unremarkable except as noted in History and below [facility] Medical History Pelvic adhesions (04/03/24) ?N73.6 - Female pelvic peritoneal adhesions (postinfective) (ICD-10) Anemia due to acute blood loss ?D62 - Acute posthemorrhagic anemia (ICD-10) Missed ab ?O02.1 - Missed (ICD-10) Tubal ectopic ?O00.109 - Unspecified tubal without intrauterine (ICD-10) Partial thickness burn Surgical History Delivery by classical section (04/09/24) ?O82 - Encounter for delivery without indication (ICD-10) History of D&C (01/18/23) ?Z98.890 - Other specified postprocedural states (ICD-10) S/P repeat low transverse (06/10/22) ?Z98.891 - History of uterine scar from previous surgery (ICD-10) H/O laparoscopy (09/01/21) ?Z98.890 - Other specified postprocedural states (ICD-10) S/P section (05/10/12) ?Z98.891 - History of uterine scar from previous surgery (ICD-10) Family History Mother Thyroid disease Ovarian cancer Maternal Grandmother Breast cancer Social History Narrative: Occupation: Did not indicate. Marital status: . Scientologist/cultural needs: no. Chemical or radiation exposure: no. Pre- tobacco use: no. Pre- alcohol use: no. Current tobacco use: no. Current alcohol use: no. Recreational drug use: no. Dietary restrictions: no. Blood transfusion acceptable in an emergency: yes. PSYCHOSOCIAL HISTORY: History of depression or currently depressed: Denies. Current or past physical, emotional, or sexual mistreatment: Denies. Problems that will make it hard to make it to appointments: No. What is your current living situation?: I presently have a place to live Problems where you live: no known problems In the past 12 months, utilities in danger of being shut off: no In past 12 months, lack of transportation kept you from medical appts, meetings, work, or getting things needed for daily living: no In the past 12 mos, have been you worried that your food would run out before you had money to buy more?: never true In the past 12 mos, the food you bought just didn't last and you didn't have money to buy more?: never true Smoking Status: Never smoker How often do you have a drink containing alcohol: never How often do you have six or more drinks on one occasion: Never AUDIT-C Alcohol total score: 0 Non-prescribed substance use: denies use Caffeine: No How often does anyone, including family, friends and others, physically hurt you: never How often does anyone, including family, friends and others, insult or talk down to you: never How often does anyone, including family, friends and others, threaten you with harm: never How often does anyone, including family, friends and others, scream or curse at you: never Are you using contraception or practicing any form of control: No Exam Narrative: Exam Narrative: Pleasant. NAD. Breathing easily. Lungs appear clear. Heart in regular rate and rhythm. Lower extremities without pitting edema. In the upper medial right lower leg there is dime to nickel sized area of bruising not quite like telangiectasia. Quite tender to palpation here. And then a few inches below this similar appearing but surrounded by some erythema of a few inches. Also rather tender here. Does not have tenderness to palpation about the calf nor in the anti-geniculate fossa. Negative Homans. Const: Vital Signs, click to edit/add: Vital Signs - 24 hr 06/24/25 18:48 Temperature 98.1 F Pulse Rate [Pulse Oximeter] 90 Respiratory Rate 20 Blood Pressure [Ri t Upper Arm] 125/78 Pulse Oximetry 98 Oxygen Delivery Me thod Room Air Documenting provider has reviewed patient's vital signs: yes Course Vital Signs Vital signs: Initial Vital Signs Temperature 98.1 F 06/24/25 18:48 Temperature Source Temporal Artery Scan 06/24/25 18:48 Pulse Rate 90 06/24/25 18:48 Respiratory Rate 20 06/24/25 18:48 Blood Pressure 125/78 06/24/25 18:48 Blood Pressure Mean 93 06/24/25 18:48 Blood Pressure Position Sitting 06/24/25 18:48 Pulse Oximetry 98 06/24/25 18:48 Oxygen Delivery Method Room Air 06/24/25 18:48 Vital Signs Temperature 98.1 F 06/24/25 18:48 Pulse Rate 90 06/24/25 18:48 Respiratory Rate 20 06/24/25 18:48 Blood Pressure 125/78 06/24/25 18:48 Pulse Oximetry 98 06/24/25 18:48 Oxygen Delivery Method Room Air 06/24/25 18:48 Temperature 98.1 F 06/24/25 18:48 Pulse Rate 90 06/24/25 18:48 Respiratory Rate 20 06/24/25 18:48 Blood Pressure 125/78 06/24/25 18:48 Pulse Oximetry 98 06/24/25 18:48 Oxygen Delivery Method Room Air 06/24/25 18:48 Medical Decision Making MDM Narrative Medical decision making narrative: By the time I am seeing this patient in busy emergency department per concern, right lower extremity ultrasound has been done. This is noted to be negative. INDICATION: Pain in right lower leg TECHNIQUE: Venous duplex ultrasound of the right lower extremity utilizing compression with christopher-scale, color Doppler, and spectral Doppler imaging. COMPARISON: None FINDINGS: There is no sonographic evidence of deep vein thrombosis in the right common femoral, deep femoral, superficial femoral, popliteal, posterior tibial, peroneal, or contralateral common femoral veins. There is no visualized superficial vein thrombosis. The soft tissues are unremarkable. IMPRESSION: No deep vein thrombosis in the right lower extremity. Dictated by Yefri Nelson MD @ 06/24/2025 7:40:13 PM Would have presumed that at most this is a superficial thrombophlebitis but does not really seem like that either. I would have offered reassurance that this would not have been deep venous thrombus. I did however bring bedside ultrasound to look at these 2 areas. Both show induration in the skin maybe some fluid collection but compressible vasculature. Almost as if this is more of a ruptured superficial vessel. Would treat symptomatically at this point See patient discharge plan for further discussion It does not appear that you have a deep venous thrombus. I am thinking what happened here is vessel popped above your [place] and is contributing to some fluid in this area that is just quite painful. At this point I would ice 2 - 3 times daily over the next few days. You might place a lidocaine patch or even diclofenac gel. All of this is available [id number]. Otherwise ibuprofen or acetaminophen Be seen for marked increase in pain, marked increase in swelling or redness, symptoms just not improved in a week. Medical Records Medical records reviewed: Yes I reviewed the patient's medical records Discharge Plan Discharge Clinical Impression: Acute leg pain Patient Disposition: Home, Self-Care Condition: Stable Additional Instructions: It does not appear that you have a deep venous thrombus. I am thinking what happened here is vessel popped above your [place] and is contributing to some fluid in this area that is just quite painful. At this point I would ice 2 - 3 times daily over the next few days. You might place a lidocaine patch or even diclofenac gel. All of this is available [id number]. Otherwise ibuprofen or acetaminophen Be seen for marked increase in pain, marked increase in swelling or redness, symptoms just not improved in a week. Prescriptions: No Action No Known Home Medications Follow Up/Referrals: Provider,Not a Local [Primary Care Provider, Family Practice] Stand Alone Forms: [employer] Info Instructions
== END 2025-06-24 21:47 | disposition home or self-care (01) ==
PROVIDERS: Emergency Provider Family Medicine
DX: M79.661 Pain in right lower leg (principal)
CPT/HCPCS: 93971; 99283; 99284